=== PATIENT | male | born 1930 | race African-American/Black ===

== ENCOUNTER 2018-01-12 17:00 | Inpatient (IN) | payer MEDICARE, MEDICAID ==
[~2018-01-12] VITALS: Ht 172.7 cm; Wt 72.1 kg
[2018-01-12 17:09] VITALS: BP 93/59
[2018-01-12] MEDS ORDERED: NS 1000ml 2,200 ML IVLG ONE (17:15)
[2018-01-12] MEDS ORDERED: EPOGEN4000 UNIT/ SUBQ (17:19)
[2018-01-12] MEDS ORDERED: ATORVASTATIN CA20 MG GT (17:19)
[2018-01-12] MEDS ORDERED: CARDIZEM30 M1 PO (17:19)
[2018-01-12] MEDS ORDERED: B COMPLEX1 EACH GT (17:19)
[2018-01-12] MEDS ORDERED: DIGOXIN125 MCG GT ×2 (17:19→18:18)
[2018-01-12] MEDS ORDERED: ALBUTEROL2.5 MG/3 M INH (17:19)
[2018-01-12] MEDS ORDERED: METOCLOPRAMIDE H5 M1 ORAL (17:19)
[2018-01-12] MEDS ORDERED: TAMSULOSIN HCL0.4 MG GT (17:19)
[2018-01-12] MEDS ORDERED: AMIODARONE HCL400 M1 HE (17:19)
[2018-01-12] MEDS ORDERED: SENSIPAR30 MG GT (17:19)
[2018-01-12] MEDS ORDERED: CLOPIDOGREL75 MG ORAL (17:19)
--- NOTE | 2018-01-12 17:20 | Emergency Room Report ---
History of Present Illness General Chief Complaint: General Complaint Source: Patient Present Illness HPI 87yo M p/w hemoptysis from a SNF, found to have a low Hgb of 7.7. No h/o GI bleeding per SNF paperwork, patient does admit to cough but denies any pain complaints, any GI bleed symptoms Allergies: Coded Allergies: LORAZEPAM (Verified Allergy, Unknown, 01/12/18) Patient History Limited by: language barrier Past Medical History: see triage record Reviewed Nursing Documentation: PMH: Agreed; PSxH: Agreed Review of Systems All Other Systems: negative except mentioned in HPI Physical Exam Vital Signs Date Time Temp Pulse Resp B/P (MAP) Pulse Ox O2 Delivery O2 Flow Rate FiO2 01/12/18 16:54 97.5 85 20 92/49 95 Room Air 97.5 Sp02 EP Interpretation: reviewed, normal General Appearance: no apparent distress, alert, non-toxic Head: normocephalic Eyes: bilateral eye normal inspection, bilateral eye PERRL, bilateral eye EOMI ENT: normal ENT inspection, hearing grossly normal, normal pharynx, no angioedema, normal voice, moist mucus membranes Neck: normal inspection, full range of motion, supple, supple/symm/no masses Respiratory: chest non-tender, lungs clear, normal breath sounds, chest symmetrical, palpation of chest normal Cardiovascular #1: normal peripheral pulses, regular rate, rhythm Cardiovascular #2: 2+ radial (R), 2+ radial (L) Gastrointestinal: normal inspection, non tender, soft, no mass, no guarding, no rebound, other - PEG tube site c/d/i Rectal: deferred Genitourinary: normal inspection, no CVA tenderness Musculoskeletal: back normal, gait/station normal, normal range of motion, non- tender, no calf tenderness Neurologic: alert, responsive, project control manager III-XII nml as tested, motor strength/tone normal, sensory intact, speech normal, oriented - to person and situation Psychiatric: judgement/insight normal, mood/affect normal, no suicidal/ homicidal ideation Skin: normal color, no rash, warm/dry, normal turgor Lymphatic: no adenopathy Medical Decision Making Diagnostic Impression: Primary Impression: Anemia Additional Impression: Lung cancer ER Course I spoke with Dr. Cadena, patient has known Lung Ca, that explains the hemoptysis, he does not think patient needs much further care other than getting HD tomorrow, and if transfusion needed then await HD first to prevent fluid overload. Patient is calm and comfortable, will admit to tele. Patient with no chest pain, troponin elevated but no asa given as cecille is a renal failure patient and do not have high suspicion for ACS plus he is coughing up blood. EKG Diagnostic Results EKG Time: 17:21 EP Interpretation: No st-t depressions, LBBB Rate: normal Rhythm: NSR ST Segments: no acute changes ASA given to the pt in ED: No Rhythm Strip Diag. Results Rhythm Strip Time: 17:51 EP Interpretation: yes Rate: 84 Rhythm: NSR, no PVC's, no ectopy Chest X-Ray Diagnostic Results Chest X-Ray Diagnostic Results : Chest X-Ray Ordered: Yes # of Views/Limited/Complete: 1 View Indication: Other EP Interpretation: Yes Interpretation: no consolidation, no effusion, no pneumothorax, no acute cardiopulmonary disease Impression: No acute disease Electronically Signed by: Viviana Mc MD Last Vital Signs Date Time Temp Pulse Resp B/P (MAP) Pulse Ox O2 Delivery O2 Flow Rate FiO2 01/12/18 17:09 97.4 79 20 93/59 95 Room Air 97.4 Disposition: ADMITTED INPATIENT Condition: Stable Signed Out To: VIVIANA Willams M.D Jan 12, 2018 17:20
[2018-01-12 18:08] LABS: HEMATOCRIT 22.9 % (42.0-52.0); HEMOGLOBIN 7.8 G/DL (14.2-18.0); MEAN CORPUSCULAR VOLUME 90 FL (80-99); PLATELET COUNT 201 K/UL (150-450); RED BLOOD COUNT 2.54 M/UL (4.70-6.10); RED CELL DISTRIBUTION WIDTH 16.1 % (11.6-14.8); WHITE BLOOD COUNT 11.3 K/UL (4.8-10.8)
[2018-01-12 18:11] VITALS: BP 101/42
--- NOTE | 2018-01-12 18:11 | Diagnostic Imaging Report ---
EXAM: XR Chest, 1 View CLINICAL HISTORY: COUGH TECHNIQUE: Frontal view of the chest. COMPARISON: No relevant prior studies available. FINDINGS: Lungs: Pulmonary nodules which likely represent granulomas, but which are indeterminate. Recommend correlation with prior studies to evaluate stability over time. If none available, recommend unenhanced CT chest to further characterize. Pleural space: Left small pleural effusion with passive atelectasis. No pneumothorax. Heart: Unremarkable. No cardiomegaly. Mediastinum: Unremarkable. Bones/joints: Unremarkable. Other findings: Otherwise no acute disease. ASVD. Partly seen bilateral cervical posterior stabilization hardware. IMPRESSION: 1. Left small pleural effusion with passive atelectasis. 2. Otherwise no acute disease. 3. Pulmonary nodules which likely represent granulomas, but which are indeterminate. Recommend correlation with prior studies to evaluate stability over time. If none available, recommend unenhanced CT chest to further characterize.
[2018-01-12] MEDS ORDERED: B COMPLEX-FOLI1 EACH GT (18:14)
[2018-01-12 18:18] LABS: ANION GAP 13 mmol/L (5-15); BLOOD UREA NITROGEN 120 mg/dL (7-18); CALCIUM 8.5 MG/DL (8.5-10.1); CARBON DIOXIDE 27 MMOL/L (21-32); CHLORIDE 95 MMOL/L (98-107); CREATININE 8.9 MG/DL (0.55-1.30); SODIUM 135 MMOL/L (136-145)
[2018-01-12] MEDS ORDERED: AMIODARONE HCL400 M1 ORAL (18:19)
[2018-01-12] MEDS ORDERED: AMIODARONE HCL400 M1 GT (18:20)
[2018-01-12 18:29] LABS: APPEARANCE,URINE SLIGHTLY CLOUDY; BILIRUBIN, URINE 1+ (NEGATIVE); GLUCOSE, URINE (UA) NEGATIVE (NEGATIVE); KETONES,URINE NEGATIVE (NEGATIVE); LEUKOCYTE ESTERASE ,URINE 3+ (NEGATIVE); NITRITE,URINE NEGATIVE (NEGATIVE); PH,URINE 7 (4.5-8.0); PROTEIN,URINE 3+ (NEGATIVE); UROBILINOGEN,URINE NORMAL MG/DL (0.0-1.0)
[2018-01-12 18:32] LABS: ALANINE AMINOTRANSFERASE 27 U/L (12-78); ALBUMIN 3.1 G/DL (3.4-5.0); ALKALINE PHOSPHATASE 169 U/L (46-116); ASPARTATE AMINO TRANSFERASE 43 U/L (15-37); BILIRUBIN,TOTAL 0.4 MG/DL (0.2-1.0); CKMB 5.2 NG/ML (0.0-3.6); CREATINE KINASE 270 U/L (26-308)
[2018-01-12 18:37] LABS: COLOR,URINE PALE YELLOW
[2018-01-12 19:18] VITALS: BP 105/49
[2018-01-12 20:00] VITALS: BP 107/56
[2018-01-12] MEDS ORDERED: Albuterol ud Inhalation HHN PRN (22:45)
[2018-01-12] MEDS ORDERED: CARDIZEM60 MG GT (23:13)
[2018-01-13] VITALS (7 sets, daily range): BP systolic 99–138; BP diastolic 42–67
[2018-01-13] MEDS ORDERED: Albuterol ud Inhalation HHN SCH (02:00)
[2018-01-13] MEDS: Albuterol ud Inhalation HHN SCH ×3 (04:08→11:01)
[2018-01-13] MEDS: dilTIAZem HCl 60mg tab GT SCH ×3 (06:00→22:42)
[2018-01-13] MEDS ORDERED: Vitamin B Complex Tab ORAL SCH (09:00)
[2018-01-13] MEDS ORDERED: Amiodarone 200mg tab GT SCH (09:00)
[2018-01-13] MEDS ORDERED: Sensipar 30mg Tab GT SCH (09:00)
[2018-01-13] MEDS ORDERED: Albuterol/Ipratropium 3ml neb HHN PRN (14:45)
--- NOTE | 2018-01-13 15:30 | History and Physical Report ---
DATE OF ADMISSION: 01/12/2018 CHIEF COMPLAINT: Hemoptysis. HISTORY OF PRESENT ILLNESS: This is an 87-year-old male, who was just discharged a few days ago from [facility] after a prolonged admission for multiple medical problems. Essentially, the patient was therefore extensive lung cancer and paroxysmal atrial fibrillation. The patient was debilitated. Eventually, the patient was sent to [facility]. The patient's daughter was alarmed because of his continued hemoptysis and decided to send him outside again to the hospital. She thought his care home is not adequate to take care of him. PAST MEDICAL HISTORY: 1. Extensive lung cancer a biopsy-proven, most of the workup was done at [facility]. 2. End-stage renal failure, on dialysis. 3. Chronic atrial fibrillation. 4. Status post gastrostomy. 5. Organic brain syndrome. 6. Anemia of chronic renal failure. 7. History of congestive heart failure. 8. Cardiomyopathy. 9. Ischemic heart disease. 10. Benign prostatic hypertrophy. MEDICATIONS: Epogen in the hospital and at the dialysis center the patient was getting darbepoetin, metoclopramide, diltiazem, amiodarone, digoxin, Plavix, tamsulosin, cinacalcet, atorvastatin, albuterol/ipratropium inhalation, vitamin B complex, tube feeding. ALLERGIES: Allergies to lorazepam. FAMILY HISTORY: Unable to obtain. The patient is confused. SOCIAL HISTORY: Unable to obtain. The patient is confused. REVIEW OF SYSTEMS: Unable to obtain. The patient is confused. PHYSICAL EXAMINATION: GENERAL: This is an elderly cachectic, chronically ill-appearing male, who is in no acute distress. VITAL SIGNS: Blood pressure 113/54, pulse 84 and irregular, respirations 16, temperature is 97.6 axillary. HEENT: The head is normocephalic and atraumatic. Pupils are equal, round, and reactive to light and accommodation consensually. NECK: Supple. Trachea midline. There was no lymphadenopathy or thyromegaly. LUNGS: Bilateral coarse rhonchi. HEART: Irregularly irregular. ABDOMEN: Soft and nontender. Bowel sounds were active. He has a gastrostomy tube. EXTREMITIES: Notable for advanced muscle wasting. He has left upper arm AV fistula with thrill and bruit. NEUROLOGIC: He is alert, but confused. There were no gross focal findings. LABORATORY AND ANCILLARY DATA: CBC shows white count of 11,300, hematocrit 22.9, and platelet count is 201,000. Serum chemistry yesterday sodium 135, potassium 3, BUN 120, and creatinine 8.9. Pro-B natriuretic peptide 24,619. Troponin level 0.172. Lactic acid 0.8. Chest x-ray, showed left small pleural effusions with passive atelectasis. Otherwise, no acute disease. Pulmonary nodules, which likely represent granulomas, but which are indeterminate. ASSESSMENT: 1. Lung cancer. 2. Extensive hemoptysis secondary to the above. 3. Extensive lung cancer a biopsy-proven, most of the workup was done at [facility]. 4. End-stage renal failure, on dialysis. 5. Chronic atrial fibrillation. 6. Status post gastrostomy. 7. Organic brain syndrome. 8. Anemia of chronic renal failure. 9. History of congestive heart failure. 10. Cardiomyopathy. 11. Ischemic heart disease. 12. Benign prostatic hypertrophy. PLAN: 1. Resume medications from care home except Plavix, which currently exacerbate the patient's major symptom, which is hemoptysis, which is a rate limiting factor for his quality of life. 2. Hemodialysis. The patient has had high BUN and uremia also exacerbated the patient's hemoptysis and due to decline in his quality of life. The patient may need more frequent hemodialysis to decrease his BUN and decrease the episodes of his hemoptysis, which are both frightening and decreased the patient's quality of life. 3. We will therefore try to improve the patient's quality of life and try to return the patient to a better environment in the intermediate facility. Freddy Sandoval M.D. DR: ASTRID JOB#: [id number] CC: ESTUARDO
--- NOTE | 2018-01-13 16:05 | Consultation ---
Consult Note Assessment/Plan DICT # [id number] Wilmar Prater MD Jan 13, 2018 16:05
[2018-01-13] MEDS ORDERED: Piperacillin/Tazobactam 2.25 GM in NS 55 ML IV SCH (17:00)
[2018-01-13] MEDS ORDERED: Sterile Water Irrig 1000ml IRRIG ONE (17:30)
--- NOTE | 2018-01-13 17:45 | Consultation ---
DATE OF CONSULTATION: 01/13/2018 PULMONARY CONSULTATION Please note this consultation is in coverage of Dr. Ron Vaughn. CONSULTING PHYSICIAN: Wilmar Prater M.D. REFERRING PHYSICIAN: Freddy Sandoval M.D. REASON FOR CONSULTATION: Hemoptysis. HISTORY OF PRESENT ILLNESS: The patient is an 87-year-old male former smoker with history of COPD, stage IV lung cancer, schizophrenia, G-tube dependent, atrial fibrillation, PAD status post angioplasty of the foot in the past with toe ischemia, dysphagia status post G-tube, anxiety disorder, SVT, recently hospitalized at the [facility] now presenting back from a nursing facility with worsening respiratory status and hemoptysis. Upon arrival to the hospital, he has been afebrile. His vitals are stable, saturating well on two liters. He is currently getting dialyzed. The patient himself is unable to provide much of a history but per review of records he had an extended stay at [facility] and eventually sent to [facility]. Given continued hemoptysis, family decided to send him back to the hospital. The patient was seen by Oncology at the previous hospital and the plan was to the optimize his functional status before deciding on further treatment of his cancer. PAST MEDICAL HISTORY: 1. Stage IV adenocarcinoma of the lung, biopsy proven, metastatic diagnosis. 2. Hemoptysis secondary to above. 3. End-stage renal failure on dialysis. 4. Dysphagia, status post G-tube. 5. Chronic atrial fibrillation and SVT. 6. Organic brain syndrome. 7. Schizophrenia. 8. Congestive heart failure. 9. Cardiomyopathy. 10. Ischemic heart disease. 11. BPH. 12. Severe peripheral vascular disease. 13. Angioplasty of lower extremities. 14. Ischemic toes. 15. Anemia. ALLERGIES: Lorazepam. MEDICATIONS: Prior to admission medications reviewed. Current medications reviewed. SOCIAL HISTORY: The patient is a extensive former smoker. Denies tobacco or drug use. He is a [facility] resident. FAMILY HISTORY: Noncontributory. REVIEW OF SYSTEMS: Negative other than history of present illness. PHYSICAL EXAMINATION: VITAL SIGNS: Temperature 97.2, pulse 79, blood pressure 112/56, respiratory rate 20, and saturating 96% on two liters. GENERAL: He is an elderly male, dysarthric in no respiratory distress but he is coughing up blood. HEENT: Normocephalic and atraumatic. Oropharynx is clear with moist mucous membranes. CHEST: Coarse bilateral breath sounds. HEART: Regular rate and rhythm. ABDOMEN: Soft, nontender, and nondistended. EXTREMITIES: No cyanosis, clubbing. There is ischemic toe noted. ANCILLARY DATA: White count 11.3, hemoglobin 7.8, and platelet count 201. Sodium 135, potassium 3, chloride 95, bicarb 27, BUN 120, creatinine 8.1, glucose 103, calcium 8.5. Total bilirubin 0.4, AST 43, ALT 27, alkaline phosphatase 169, CK 270. Troponin 0.172. BNP 62999. Albumin 3.1, globulin 3.2. Protein , occult blood 5+, total bilirubin 1+, LE 3+. Urine culture no growth so far. Chest x-ray, reviewed by myself shows scattered bilateral nodules, small left pleural effusion. ASSESSMENT: The patient is an 87-year-old male, extensive former smoker with a history of chronic obstructive pulmonary disease, stage IV lung adenocarcinoma, failure to thrive, cachexia, dysphagia status post G-tube, congestive heart failure, chronic atrial fibrillation, schizophrenia, organic brain syndrome, and multiple other medical problems presenting for management of continued hemoptysis. This apparently has been an ongoing issue since his last hospitalization and needs to be looked at in terms of his overall goals of care. Limited notes from the [facility] are available for review. I had reviewed these but we will speak at more in detail with the team that took care of him over there including the oncologist. It seems as if the plan was to optimize his functional status before considering palliative therapy for his cancer. At this point, I will go ahead and get a CT of the chest to get a better idea of the patient's parenchymal disease, anticipating potential sources if indeed an embolization is required at some point. We will also get coags to assess for underlying coagulopathy. His Plavix has been held and he is currently undergoing dialysis. He had a urinary tract infection as well as a possible tracheobronchitis. We will start him on broad-spectrum antibiotics. PROBLEM LIST: 1. Hemoptysis likely secondary to lung cancer with possible superimposed tracheobronchitis/early pneumonia. 2. Stage IV lung adenocarcinoma diagnosed at [facility] per report treatment naive. 3. Chronic obstructive pulmonary disease. 4. Recent pneumonia. 5. Urinary tract infection. 6. Congestive heart failure with ischemic cardiomyopathy. 7. Atrial fibrillation and supraventricular tachycardia. 8. Hypertension. 9. Hyperlipidemia. 10. Benign prostatic hypertrophy. 11. Ischemic toes and multilevel peripheral arterial disease status post angioplasty and atherectomy. 12. Dysphagia, status post gastrostomy tube. 13. Acute on chronic anemia. 14. End-stage renal disease, on dialysis. TREATMENT PLAN: 1. Monitor for further hemoptysis. 2. Stat CT of the chest. 3. If patient decompensates, we need to transfer him to the incentive care unit and intubate him. If a lesion is noted on CT, we would do a mainstem intubation on the contralateral side. 4. If the patient continues to bleed, he may need transfer to a higher level of care for possible embolization. 5. Check coags. 6. Hold anti-platelet therapy. 7. We will empirically start Zosyn and vancomycin for treatment of his urinary tract infection and healthcare-associated pneumonia. 8. Dialysis per Dr. Sandoval. 9. Optimize pulmonary hygiene/mobilize as tolerated. 10. Around the clock and p.r.n. DuoNebs. 11. Consider hematology/oncology evaluation. 12. DVT prophylaxis with SCDs. 13. Per review of records and current presentation, prognosis is poor. 14. The patient is a Full Code though we will need to continue to address goals of care. Dr. Sandoval, thank you for allowing us to assist in the care of this patient. If we may be of any assistance in the future, please not hesitate to ask. Wilmar Prater M.D. DR: Felipa JOB#: [id number] CC:
--- NOTE | 2018-01-13 18:44 | Diagnostic Imaging Report ---
EXAM: CT Chest Without Intravenous Contrast CLINICAL HISTORY: COUGH TECHNIQUE: Axial computed tomography images of the chest without intravenous contrast. CTDI is 25.99 mGy and DLP is 963 mGy-cm. One or more of the following dose reduction techniques were used: automated exposure control, adjustment of the mA and/or kV according to patient size, use of iterative reconstruction technique. COMPARISON: Chest radiograph 01/12/18 at 1736 hrs. FINDINGS: Lungs: Numerous bilateral pulmonary nodules, most of which are relatively uniform in size measuring up to approximately 1.2 cm. Left lower lobe posterior 3.4 cm mass with broad contact of the aorta and posterior left hilar structures. No pneumonia seen. No pleural effusion. Pleural space: See above. Heart: Unremarkable. No cardiomegaly. No significant pericardial effusion. Bones/joints: Mild age-related multilevel degenerative spine findings. Soft tissues: Right soft tissue mass in the anterior soft tissues of the shoulder region measuring 4.7 cm, hypodense central component suggest necrosis. Vasculature: Unremarkable. No thoracic aortic aneurysm. Lymph nodes: Unremarkable. No enlarged lymph nodes. Adrenals: Nodular the thickened adrenal glands, indeterminate. Correlate with prior imaging. If not available, these can be further assessed MRI. Kidneys and ureters: Multiple bilateral indeterminate renal cystic masses, correlate for stability over time with prior imaging if available. If stability over time cannot be assured, recommend MRI kidneys. IMPRESSION: 1. Findings strongly suggesting metastatic disease in the lungs, dominant left lower lobe lung mass with numerous additional pulmonary nodules. 2. Recommend further evaluation with appropriate screening studies, and consider PET/CT versus percutaneous lung mass CT guided core biopsy. 3. Likely neoplastic anterior right shoulder mass, considerations include metastases versus soft tissue sarcoma. This is amenable to image guided percutaneous core needle biopsy.
[2018-01-13] MEDS ORDERED: Albuterol/Ipratropium 3ml neb HHN SCH (19:00)
--- NOTE | 2018-01-13 19:31 | Cardiac Electrophysiology PN ---
Subjective Subjective [id number] Objective Last 24 Hour Vital Signs Date Time Temp Pulse Resp B/P (MAP) Pulse Ox O2 Delivery O2 Flow Rate FiO2 01/13/18 16:30 Nasal Cannula 2.0 01/13/18 16:00 97.3 85 20 102/67 99 Nasal Cannula 2.0 97.3 01/13/18 16:00 88 01/13/18 13:05 79 112/56 01/13/18 13:00 Nasal Cannula 2.0 01/13/18 12:00 85 01/13/18 12:00 97.2 79 20 112/56 96 Nasal Cannula 2.0 97.2 01/13/18 11:12 84 18 93 Nasal Cannula 2.0 28 01/13/18 11:01 77 18 94 Room Air 21 01/13/18 08:00 97.6 86 20 113/54 95 Nasal Cannula 2.0 97.6 01/13/18 08:00 85 01/13/18 07:13 84 18 94 Nasal Cannula 2.0 28 01/13/18 07:03 82 20 Room Air 01/13/18 07:03 91 Room Air 01/13/18 07:03 82 16 91 Room Air 21 01/13/18 07:03 Room Air 21 01/13/18 06:00 83 110/54 01/13/18 04:00 97.0 78 23 110/54 100 Nasal Cannula 2.0 97.0 01/13/18 04:00 85 20 94 Nasal Cannula 2.0 28 01/13/18 04:00 84 20 92 Nasal Cannula 2.0 28 01/13/18 04:00 83 01/13/18 00:00 97.3 82 21 107/56 100 Nasal Cannula 2.0 97.3 01/13/18 00:00 82 01/12/18 23:10 Nasal Cannula 2.0 28 01/12/18 23:10 92 Nasal Cannula 2.0 28 01/12/18 22:56 82 20 Room Air 01/12/18 22:54 82 20 92 Room Air 21 01/12/18 22:54 86 20 95 Room Air 01/12/18 20:00 96.8 85 23 107/56 90 Room Air 96.8 01/12/18 20:00 83 Intake and Output 01/12/18 01/13/18 19:00 07:00 Intake Total 1000 ml Output Total 30 ml Balance -30 ml 1000 ml Intake IV Total 1000 ml Output Urine Total 30 ml # Voids 1 Laboratory Tests Test 01/13/18 14:41 01/13/18 17:35 Arterial Blood pH 7.415 (7.350-7.450) Arterial Blood Partial Pressure CO2 42.1 mmHg (35.0-45.0) Arterial Blood Partial Pressure O2 128.1 mmHg (75.0-100.0) H Arterial Blood HCO3 26.4 mmol/L (22.0-26.0) H Arterial Blood Oxygen Saturation 98.2 % (92.0-98.0) H Arterial Blood Base Excess 1.7 Vimal Test Positive Prothrombin Time 10.8 SEC (9.30-11.50) Prothromb Time International Ratio 1.0 (0.9-1.1) Microbiology Date/Time Source Procedure Growth Status 01/12/18 18:00 Urine,Clean Catch Urine Culture - Preliminary NO GROWTH Resulted Keshav Spear MD Jan 13, 2018 19:31
[2018-01-13] MEDS ORDERED: Digoxin 0.125mg tab GT SCH (20:00)
--- NOTE | 2018-01-13 20:30 | Consultation ---
DATE OF CONSULTATION: 01/13/2018 Cardiology consultation CONSULTING PHYSICIAN: Keshav Spear M.D. REFERRING PHYSICIAN: Freddy Sandoval M.D. REASON FOR CONSULTATION: Management of hypertension, atrial flutter, congestive heart failure. HISTORY OF PRESENT ILLNESS: The patient is an 87-year-old gentleman with history of COPD and stage IV lung cancer, history of G-tube as well as peripheral vascular disease status post angioplasty with history of atrial flutter status post ablation by me at [facility] who was just recently discharged just last week. The patient brought back from senior living for worsening of respiratory status and persistence of hemoptysis. The patient was admitted and Cardiology consultation was obtained for further evaluation and management. At the time of my evaluation, the patient is coughing of blood and at times short of breath. REVIEW OF SYSTEMS: Review of Systems was negative other than what is mentioned in the history of present illness. PAST MEDICAL HISTORY: Includes: 1. Hypertension. 2. History of atrial flutter status post ablation. 3. History of congestive heart failure. 4. Peripheral vascular disease status post angioplasty of lower extremities. 5. Stage IV adenocarcinoma of the lungs, metastatic biopsy-proven. 6. Dysphagia, status post PEG placement. 7. Schizophrenia. 8. Anemia. ALLERGIES: The patient is allergic to lorazepam MEDICATION: Per reconciliation. SOCIAL HISTORY: Extensive smoker. intermediate resident. PHYSICAL EXAMINATION: VITAL SIGNS: Blood pressure is 102/67, pulse 85, respirations 18, and temperature 97.3. HEAD AND SHOWS: No JVD. LUNGS: Coarse rhonchi. CARDIOVASCULAR: Regular S1 and S2 with no gallop or murmur. ABDOMEN: Soft, status post G-tube. EXTREMITIES: A 1+ pitting edema. LABORATORY AND DIAGNOSTIC DATA: White count 11.2, hemoglobin 7.8, hematocrit 22.9, platelet count 201. Sodium 135, potassium 3.0, BUN 120, creatinine 8.9. Troponin is 0.172. BNP 90662. ASSESSMENT AND PLAN: 1. Troponin elevation. This is likely due to the patient's renal failure. He does not have any chest pain. EKG shows left bundle-branch block. 2. [place] [address]. The patient will be on hemodialysis. 3. Hypokalemia, which we will be replacing. 4. Severe peripheral vascular disease. Status post intervention. 5. End-stage renal disease, on hemodialysis. 6. Metastatic stage IV lung cancer. Thank you very much, Dr. Sandoval, for allowing me to participate in the care of this patient. Please do not hesitate to contact me for any questions regarding my evaluation. Sincerely, Keshav Spear M.D. DR: Keya JOB#: [id number] CC:
[2018-01-13] MEDS ORDERED: Tamsulosin 0.4mg cap ORAL SCH (21:00)
[2018-01-13] MEDS ORDERED: Epogen (for ESRD on dialysis) SUBQ SCH (21:00)
[2018-01-13] MEDS ORDERED: Heparin 1000 units/ml 1ml Vial INJ SCH (21:15)
[2018-01-13] MEDS ORDERED: Heparin Sod 1000 units/ml 10ml IV SCH (21:15)
[2018-01-14] VITALS (24 sets, daily range): BP systolic 97–184; BP diastolic 22–74
[2018-01-14 00:04] LABS: HEMATOCRIT 19.9 % (42.0-52.0); MEAN CORPUSCULAR VOLUME 90 FL (80-99); PLATELET COUNT 198 K/UL (150-450); RED BLOOD COUNT 2.21 M/UL (4.70-6.10); RED CELL DISTRIBUTION WIDTH 16.1 % (11.6-14.8); WHITE BLOOD COUNT 11.9 K/UL (4.8-10.8)
[2018-01-14 00:15] LABS: HEMOGLOBIN 6.7 G/DL (14.2-18.0)
[2018-01-14] MEDS: Piperacillin/Tazobactam 2.25 GM in NS 55 ML IV SCH ×3 (01:13→18:20)
[2018-01-14] MEDS: Albuterol/Ipratropium 3ml neb HHN SCH ×4 (01:21→20:27)
--- NOTE | 2018-01-14 02:15 | Consultation ---
DATE OF CONSULTATION: 01/13/2018 NOTE: POOR AUDIO HEMATOLOGY/ONCOLOGY CONSULTATION CONSULTING PHYSICIAN: Jm Gooden M.D. REQUESTING PHYSICIAN: Freddy Sandoval M.D. IDENTIFYING DATA: The patient is a pleasant 87-year-old male who presents with past medical history stage IV lung cancer, schizophrenia, G-tube dependent, SVT, history of dysphagia, status post G-tube, anxiety disorder, recently [facility] [place], presents from [facility] with worsening respiratory failure and hemoptysis, has been afebrile, stable, saturating well on two liters, getting dialyzed, currently unable to provide history. . He has a history of hemoptysis, has been seen by Oncology in the past. The patient has been anemic before, has been right upper extremity DVT and temporal lobe mass, which imaging. Hematology Service was consulted at this time as the patient requires Epogen. PAST MEDICAL HISTORY: 1. carcinoma, biopsy-proven, metastatic. 2. Hemoptysis. 3. End-stage renal disease, on dialysis. 4. Dysphagia, status post G-tube. 5. Chronic atrial fibrillation and SVT. 6. Organic brain syndrome. MEDICATIONS: Reviewed. ALLERGIES: Lorazepam. SOCIAL HISTORY: Extensive smoker. No alcohol or illicit drug use. FAMILY HISTORY: Noncontributory. REVIEW OF SYSTEMS: . PHYSICAL EXAMINATION: VITAL SIGNS: Reviewed. GENERAL: No distress. LUNGS: Decreased breath sounds bilaterally. Some crackles at the base noted as well. CARDIOVASCULAR: . ABDOMEN: Soft, nontender, and nondistended. EXTREMITIES: No cyanosis or edema. LABORATORY DATA: WBC 11.3, hemoglobin 10.8, hematocrit , platelet count 201,000. Total bilirubin 0.4. BNP 24,000. ASSESSMENT AND RECOMMENDATIONS: 1. Stage IV adenocarcinoma, seen by Pulmonary and Cardiology for further monitoring as well as further recommendations. CT scan, which has to be completed. The patient with hemoptysis noted as well. 2. Reviewed [facility] records. The patient again most recently seen on 01/11/2018, has not received any chemotherapy. Prognosis remains somewhat poor. We will continue to closely monitor. Consider outpatient treatment as needed. The patient also requires a PET scan. The patient will need to have staining if he qualifies for immunotherapy. Pathology again reviewed from 12/28/2017. No major changes noted in pathology report. The patient does not have immunophenotypic staining negative. He will not benefit from immunotherapy. 3. Anemia due to underlying chronic disease. Continue to closely monitor. Anemia workup has been completed. Continue the patient on Procrit 4000 units subcutaneous. 4. Dysphagia, status post PEG. 5. Atrial flutter, status post ablation. 6. Congestive heart failure. 7. Peripheral vascular disease, status post angioplasty. 8. I appreciate the consultation. Jm Gooden M.D. DR: Jose JOB#: [id number] CC:
[2018-01-14] MEDS ORDERED: Albuterol/Ipratropium 3ml neb HHN PRN (02:45)
[2018-01-14] MEDS: dilTIAZem HCl 60mg tab GT SCH ×3 (06:00→22:18)
[2018-01-14] MEDS ORDERED: Vitamin B Complex Tab ORAL SCH (09:00)
[2018-01-14] MEDS: Sensipar 30mg Tab GT SCH (09:21)
[2018-01-14] MEDS: Amiodarone 200mg tab GT SCH (09:22)
--- NOTE | 2018-01-14 09:34 | Nephrology Progress Note ---
Assessment/Plan Plan gross hemoptysis continues. [facility] to [facility] after DC'ing Plavix + providing frequent HD to reduce uremic component. Transfuse PRN. ESRD - HD in am. Subjective Subjective Confused. In ICU. Gross Hemoptysis. Objective Objective Last 24 Hour Vital Signs Date Time Temp Pulse Resp B/P (MAP) Pulse Ox O2 Delivery O2 Flow Rate FiO2 01/14/18 08:00 98.7 80 18 152/67 100 Nasal Cannula 2.0 98.7 01/14/18 07:12 89 20 97 Nasal Cannula 2.0 28 01/14/18 07:02 Nasal Cannula 2.0 28 01/14/18 07:02 100 Nasal Cannula 2.0 28 01/14/18 07:02 81 16 100 Nasal Cannula 2.0 28 01/14/18 07:00 83 18 112/45 100 Nasal Cannula 2.0 01/14/18 06:00 83 118/68 01/14/18 06:00 82 20 116/68 96 Nasal Cannula 2.0 01/14/18 05:00 82 18 113/40 100 Nasal Cannula 2.0 01/14/18 04:00 99.1 82 20 99/48 98 Nasal Cannula 2.0 99.1 01/14/18 03:00 83 20 97/39 100 Nasal Cannula 2.0 01/14/18 02:58 84 01/14/18 02:00 87 18 105/39 100 Nasal Cannula 2.0 01/14/18 01:23 90 20 99 Nasal Cannula 2.0 28 01/14/18 01:22 85 16 98 Nasal Cannula 2.0 28 01/14/18 01:00 78 25 100/50 100 Nasal Cannula 2.0 01/14/18 00:00 85 01/14/18 00:00 80 26 105/72 100 Nasal Cannula 2.0 01/14/18 00:00 99.1 99.1 01/13/18 23:15 98.0 85 26 99/50 100 Nasal Cannula 2.0 98.0 01/13/18 22:42 91 133/55 01/13/18 20:58 89 01/13/18 20:00 88 20 99 Nasal Cannula 2.0 28 01/13/18 20:00 86 01/13/18 20:00 97.9 89 20 138/42 20 Nasal Cannula 2.0 97.9 01/13/18 19:59 84 16 96 Nasal Cannula 2.0 28 01/13/18 19:58 Nasal Cannula 2.0 28 01/13/18 19:57 95 Nasal Cannula 2.0 28 01/13/18 16:30 Nasal Cannula 2.0 01/13/18 16:00 97.3 85 20 102/67 99 Nasal Cannula 2.0 97.3 01/13/18 16:00 88 01/13/18 13:05 79 112/56 01/13/18 13:00 Nasal Cannula 2.0 01/13/18 12:00 85 01/13/18 12:00 97.2 79 20 112/56 96 Nasal Cannula 2.0 97.2 01/13/18 11:12 84 18 93 Nasal Cannula 2.0 28 01/13/18 11:01 77 18 94 Room Air 21 Intake and Output 01/13/18 01/14/18 19:00 07:00 Intake Total 155 ml Output Total 0 ml Balance 155 ml Intake IV Total 55 ml Tube Feeding 0 ml Blood Product 100 ml Output Urine Total 0 ml # Voids 2 Laboratory Tests 01/13/18 14:41: Arterial Blood pH 7.415, Arterial Blood Partial Pressure CO2 42.1, Arterial Blood Partial Pressure O2 128.1H, Arterial Blood HCO3 26.4H, Arterial Blood Oxygen Saturation 98.2H, Arterial Blood Base Excess 1.7, Vimal Test Positive 01/13/18 17:35: Prothrombin Time 10.8, Prothromb Time International Ratio 1.0 01/13/18 22:31: Arterial Blood pH 7.424, Arterial Blood Partial Pressure CO2 42.9, Arterial Blood Partial Pressure O2 121.4H, Arterial Blood HCO3 27.5H, Arterial Blood Oxygen Saturation 97.8, Arterial Blood Base Excess 2.8, Vimal Test Positive 01/13/18 23:50: White Blood Count 11.9H, Red Blood Count 2.21L, Hemoglobin 6.7*L, Hematocrit 19.9L, Mean Corpuscular Volume 90, Mean Corpuscular Hemoglobin 30.2, Mean Corpuscular Hemoglobin Concent 33.6, Red Cell Distribution Width 16.1H, Platelet Count 198, Mean Platelet Volume 6.4L, Neutrophils (%) (Auto) , Lymphocytes (%) (Auto) , Monocytes (%) (Auto) , Eosinophils (%) (Auto) , Basophils (%) (Auto) , Neutrophils % (Manual) [Pending], Lymphocytes % (Manual) [Pending], Platelet Estimate [Pending], Platelet Morphology [Pending] Height (Feet): 5 Height (Inches): 8.00 Weight (Pounds): 150 Objective IRR/Irr/ Lungs B jaycob Abd SNT. BS ++. PEG OK. E No Edema. + clubbing. Freddy Sandoval MD Jan 14, 2018 09:34
[2018-01-14] MEDS ORDERED: HydrALAZINE 25mg tab ORAL PRN (11:00)
--- NOTE | 2018-01-14 11:30 | Pulmonolgy Critical Care Note ---
Critical Care - Asmt/Plan Problems: (1) Hemoptysis (2) Lung cancer (3) Anemia Assessment/Plan: ASSESSMENT: The patient is an 87-year-old male, extensive former smoker with a history of chronic obstructive pulmonary disease, stage IV lung adenocarcinoma, failure to thrive, cachexia, dysphagia status post G-tube, congestive heart failure, chronic atrial fibrillation, schizophrenia, organic brain syndrome, and multiple other medical problems presenting for management of continued hemoptysis PROBLEM LIST: 1. Hemoptysis likely secondary to lung cancer with possible superimposed tracheobronchitis/early pneumonia. 2. Stage IV lung adenocarcinoma diagnosed at [facility], treatment naive. 3. Chronic obstructive pulmonary disease. 4. Recent pneumonia. 5. Urinary tract infection. 6. Congestive heart failure with ischemic cardiomyopathy. 7. Atrial fibrillation and supraventricular tachycardia. 8. Hypertension. 9. Hyperlipidemia. 10. Benign prostatic hypertrophy. 11. Ischemic toes and multilevel peripheral arterial disease status post angioplasty and atherectomy. 12. Dysphagia, status post gastrostomy tube. 13. Acute on chronic anemia. 14. End-stage renal disease, on dialysis. Respiratory: other - Monitor for further hemoptysis, if decompensates will need R mainstem intubation and place patient on L. Plavix held, transfuse PRN. RTC and PRN HHN's. Cardiac: continue to monitor HR/BP, other - Amio, Dig, Dilt per EP Renal: check electrolytes, other - HD per renal Infectious Disease: check cultures - F/u Cx's, continue antibiotics - Vanco/ Zosyn D#2 Gastrointestinal: continue feedings/current rate - TF's as tolerated Hematologic: monitor H/H, transfuse if hgb<8.5, other - F/U Dr. Gooden recs , unlikely to be a candidate for systemic therapy Affect: other - Monitor MS Prophylaxis: Heparin, SCDs Disposition: keep in ICU Time Spent (Minutes): 70 Notes Reviewed: motor and generator assembler, cardio, renal, other - Heme-Onc Discussed with: nurses, consultants Critical Care - Objective Last 24 Hour Vital Signs Date Time Temp Pulse Resp B/P (MAP) Pulse Ox O2 Delivery O2 Flow Rate FiO2 01/14/18 10:00 84 18 184/68 100 Nasal Cannula 2.0 01/14/18 09:00 84 18 157/74 100 Nasal Cannula 2.0 01/14/18 08:00 84 7/1/18 08:00 98.7 80 18 152/67 100 Nasal Cannula 2.0 98.7 01/14/18 07:12 89 20 97 Nasal Cannula 2.0 01/14/18 07:02 Nasal Cannula 2.0 28 01/14/18 07:02 100 Nasal Cannula 2.0 28 01/14/18 07:02 81 16 100 Nasal Cannula 2.0 28 01/14/18 07:00 83 18 112/45 100 Nasal Cannula 2.0 01/14/18 06:00 83 118/68 01/14/18 06:00 82 20 116/68 96 Nasal Cannula 2.0 01/14/18 05:00 82 18 113/40 100 Nasal Cannula 2.0 01/14/18 04:00 99.1 82 20 99/48 98 Nasal Cannula 2.0 99.1 01/14/18 03:00 83 20 97/39 100 Nasal Cannula 2.0 01/14/18 02:58 84 01/14/18 02:00 87 18 105/39 100 Nasal Cannula 2.0 01/14/18 01:23 90 20 99 Nasal Cannula 2.0 01/14/18 01:22 85 16 98 Nasal Cannula 2.0 01/14/18 01:00 78 25 100/50 100 Nasal Cannula 2.0 01/14/18 00:00 85 01/14/18 00:00 80 26 105/72 100 Nasal Cannula 2.0 01/14/18 00:00 99.1 99.1 01/13/18 23:15 98.0 85 26 99/50 100 Nasal Cannula 2.0 98.0 01/13/18 22:42 91 133/55 01/13/18 20:58 89 01/13/18 20:00 88 20 99 Nasal Cannula 2.0 01/13/18 20:00 86 01/13/18 20:00 97.9 89 20 138/42 20 Nasal Cannula 2.0 97.9 01/13/18 19:59 84 16 96 Nasal Cannula 2.0 28 01/13/18 19:58 Nasal Cannula 2.0 28 01/13/18 19:57 95 Nasal Cannula 2.0 28 01/13/18 16:30 Nasal Cannula 2.0 01/13/18 16:00 97.3 85 20 102/67 99 Nasal Cannula 2.0 97.3 01/13/18 16:00 88 01/13/18 13:05 79 112/56 01/13/18 13:00 Nasal Cannula 2.0 01/13/18 12:00 85 01/13/18 12:00 97.2 79 20 112/56 96 Nasal Cannula 2.0 97.2 Status: awake Condition: grave HEENT: atraumatic, normocephalic Lungs: rhonchi Heart: HR/BP stable Abdomen: soft, non-tender, active bowel sounds, feeding tube Extremities: no C/C/E, clubbing Micro: Microbiology Date/Time Source Procedure Growth Status 01/12/18 18:05 Blood Blood Culture - Preliminary NO GROWTH AFTER 24 HOURS Resulted 01/12/18 17:50 Blood Blood Culture - Preliminary NO GROWTH AFTER 24 HOURS Resulted 01/12/18 18:00 Urine,Clean Catch Urine Culture - Final NO GROWTH AFTER 48 HOURS Complete Critical Care - Subjective ROS Limited/Unobtainable: Yes ICU Day: 2 Interval Events: Transferred to ICU O/N Continue hemoptysis but frequency decreasing Hb 6.7 getting 2U PRBC Getting HD today NPO Condition: critical IV Access: peripheral EKG Rhythm: Sinus Rhythm FI02: 28 Sputum Amount: Small Tube Feeding Amount: 0 Residuals: TF's held, gets 20 hours daily I&O: Intake and Output 01/13/18 01/14/18 19:00 07:00 Intake Total 155 ml Output Total 0 ml Balance 155 ml Intake IV Total 55 ml Tube Feeding 0 ml Blood Product 100 ml Output Urine Total 0 ml # Voids 2 Subjective: + SOB + wheezing no F/C + hemoptysis CXR: CT CHEST WITH DOMINANT LLL mass and scattered b nodules, R shoulder mass Labs: Laboratory Tests Test 01/13/18 14:41 01/13/18 17:35 01/13/18 22:31 01/13/18 23:50 Arterial Blood pH 7.415 (7.350-7.450) 7.424 (7.350-7.450) Arterial Blood Partial Pressure CO2 42.1 mmHg (35.0-45.0) 42.9 mmHg (35.0-45.0) Arterial Blood Partial Pressure O2 128.1 mmHg (75.0-100.0) H 121.4 mmHg (75.0-100.0) H Arterial Blood HCO3 26.4 mmol/L (22.0-26.0) H 27.5 mmol/L (22.0-26.0) H Arterial Blood Oxygen Saturation 98.2 % (92.0-98.0) H 97.8 % (92.0-98.0) Arterial Blood Base Excess 1.7 2.8 Vimal Test Positive Positive Prothrombin Time 10.8 SEC (9.30-11.50) Prothromb Time International Ratio 1.0 (0.9-1.1) White Blood Count 11.9 K/UL (4.8-10.8) H Red Blood Count 2.21 M/UL (4.70-6.10) L Hemoglobin 6.7 G/DL (14.2-18.0) *L Hematocrit 19.9 % (42.0-52.0) L Mean Corpuscular Volume 90 FL (80-99) Mean Corpuscular Hemoglobin 30.2 PG (27.0-31.0) Mean Corpuscular Hemoglobin Concent 33.6 G/DL (32.0-36.0) Red Cell Distribution Width 16.1 % (11.6-14.8) H Platelet Count 198 K/UL (150-450) Mean Platelet Volume 6.4 FL (6.5-10.1) L Neutrophils (%) (Auto) % (45.0-75.0) Lymphocytes (%) (Auto) % (20.0-45.0) Monocytes (%) (Auto) % (1.0-10.0) Eosinophils (%) (Auto) % (0.0-3.0) Basophils (%) (Auto) % (0.0-2.0) Differential Total Cells Counted 100 Neutrophils % (Manual) 86 % (45-75) H Lymphocytes % (Manual) 10 % (20-45) L Monocytes % (Manual) 4 % (1-10) Eosinophils % (Manual) 0 % (0-3) Basophils % (Manual) 0 % (0-2) Band Neutrophils 0 % (0-8) Platelet Estimate Adequate Platelet Morphology Normal Polychromasia 1+ Hypochromasia 1+ Anisocytosis 1+ Wilmar Prater MD Jan 14, 2018 11:30
--- NOTE | 2018-01-14 12:35 | General Progress Note ---
Assessment/Plan Status: not improved, unchanged Assessment/Plan # Stage IV adenocarcinoma of the lung, very poor prognosis, seen by Pulmonary and Cardiology for further monitoring as well as further recommendations. 01/[address] scan: 1. Findings strongly suggesting metastatic disease in the lungs , dominant left lower lobe lung mass with numerous additional pulmonary nodules. 2. Recommend further evaluation with appropriate screening studies, and consider PET/CT versus percutaneous lung mass CT guided core biopsy. 3. Likely neoplastic anterior right shoulder mass, considerations include metastases versus soft tissue sarcoma. This is amenable to image guided percutaneous core needle biopsy. --> hemoptysis continues at this time, seen by pulm, potentially candidate for ddavp --> reviewed [facility] records. The patient again most recently seen on 01/11, has not received any chemotherapy. Prognosis remains poor. We will continue to closely monitor. Consider outpatient treatment as needed but less likely would consider aggressive treatment. The patient also requires a PET scan. Pathology again reviewed from 12/28/2017. No major changes noted in pathology report. --> The patient does not have immunophenotypic staining. He will NOT benefit from immunotherapy. --> again prognosis for him is very poor # Anemia due to underlying chronic disease. --> Continue to closely monitor. --> Anemia workup has been reviewed, will trend daily. --> Continue the patient on Procrit 4000 units subcutaneous. --> 01/14 s/p blood tx, tolerated well. # Dysphagia, status post PEG. # Atrial flutter, status post ablation. # Congestive heart failure. # Peripheral vascular disease, status post angioplasty. Subjective Date patient seen: Jan 14, 2018 ROS Limited/Unobtainable: Yes Constitutional: Reports: weakness Respiratory: Reports: shortness of breath Allergies: Coded Allergies: LORAZEPAM (Verified Allergy, Unknown, 01/12/18) All Systems: reviewed and negative except above Subjective Pt remains in ICU, confused. Hemoptysis continues. Pt c/o sob, seen by pulm. S/ p 1 unit bood tx. Objective Last 24 Hour Vital Signs Date Time Temp Pulse Resp B/P (MAP) Pulse Ox O2 Delivery O2 Flow Rate FiO2 01/14/18 10:00 84 18 184/68 100 Nasal Cannula 2.0 01/14/18 09:00 84 18 157/74 100 Nasal Cannula 2.0 01/14/18 08:00 84 01/14/18 08:00 98.7 80 18 152/67 100 Nasal Cannula 2.0 98.7 01/14/18 07:12 89 20 97 Nasal Cannula 2.0 01/14/18 07:02 Nasal Cannula 2.0 28 01/14/18 07:02 100 Nasal Cannula 2.0 28 01/14/18 07:02 81 16 100 Nasal Cannula 2.0 28 01/14/18 07:00 83 18 112/45 100 Nasal Cannula 2.0 01/14/18 06:00 83 118/68 01/14/18 06:00 82 20 116/68 96 Nasal Cannula 2.0 01/14/18 05:00 82 18 113/40 100 Nasal Cannula 2.0 01/14/18 04:00 99.1 82 20 99/48 98 Nasal Cannula 2.0 99.1 01/14/18 03:00 83 20 97/39 100 Nasal Cannula 2.0 01/14/18 02:58 84 01/14/18 02:00 87 18 105/39 100 Nasal Cannula 2.0 01/14/18 01:23 90 20 99 Nasal Cannula 2.0 01/14/18 01:22 85 16 98 Nasal Cannula 2.0 01/14/18 01:00 78 25 100/50 100 Nasal Cannula 2.0 01/14/18 00:00 85 01/14/18 00:00 80 26 105/72 100 Nasal Cannula 2.0 01/14/18 00:00 99.1 99.1 01/13/18 23:15 98.0 85 26 99/50 100 Nasal Cannula 2.0 98.0 01/13/18 22:42 91 133/55 01/13/18 20:58 89 01/13/18 20:00 88 20 99 Nasal Cannula 2.0 01/13/18 20:00 86 01/13/18 20:00 97.9 89 20 138/42 20 Nasal Cannula 2.0 97.9 01/13/18 19:59 84 16 96 Nasal Cannula 2.0 01/13/18 19:58 Nasal Cannula 2.0 28 01/13/18 19:57 95 Nasal Cannula 2.0 28 01/13/18 16:30 Nasal Cannula 2.0 01/13/18 16:00 97.3 85 20 102/67 99 Nasal Cannula 2.0 97.3 01/13/18 16:00 88 01/13/18 13:05 79 112/56 01/13/18 13:00 Nasal Cannula 2.0 Intake and Output 01/13/18 01/14/18 19:00 07:00 Intake Total 155 ml Output Total 0 ml Balance 155 ml Intake IV Total 55 ml Tube Feeding 0 ml Blood Product 100 ml Output Urine Total 0 ml # Voids 2 Laboratory Tests 01/13/18 14:41: Arterial Blood pH 7.415, Arterial Blood Partial Pressure CO2 42.1, Arterial Blood Partial Pressure O2 128.1H, Arterial Blood HCO3 26.4H, Arterial Blood Oxygen Saturation 98.2H, Arterial Blood Base Excess 1.7, Vimal Test Positive 01/13/18 17:35: Prothrombin Time 10.8, Prothromb Time International Ratio 1.0 01/13/18 22:31: Arterial Blood pH 7.424, Arterial Blood Partial Pressure CO2 42.9, Arterial Blood Partial Pressure O2 121.4H, Arterial Blood HCO3 27.5H, Arterial Blood Oxygen Saturation 97.8, Arterial Blood Base Excess 2.8, Vimal Test Positive 01/13/18 23:50: White Blood Count 11.9H, Red Blood Count 2.21L, Hemoglobin 6.7*L, Hematocrit 19.9L, Mean Corpuscular Volume 90, Mean Corpuscular Hemoglobin 30.2, Mean Corpuscular Hemoglobin Concent 33.6, Red Cell Distribution Width 16.1H, Platelet Count 198, Mean Platelet Volume 6.4L, Neutrophils (%) (Auto) , Lymphocytes (%) (Auto) , Monocytes (%) (Auto) , Eosinophils (%) (Auto) , Basophils (%) (Auto) , Differential Total Cells Counted 100, Neutrophils % ( Manual) 86H, Lymphocytes % (Manual) 10L, Monocytes % (Manual) 4, Eosinophils % ( Manual) 0, Basophils % (Manual) 0, Band Neutrophils 0, Platelet Estimate Adequate, Platelet Morphology Normal, Polychromasia 1+, Hypochromasia 1+, Anisocytosis 1+ Height (Feet): 5 Height (Inches): 8.00 Weight (Pounds): 150 General Appearance: no apparent distress, confused EENT: PERRL/EOMI Neck: normal alignment Cardiovascular: irregularly irregular Respiratory/Chest: respiratory distress, expiratory wheezing, inspiratory wheezing Abdomen: soft Kleynberg,Jm L. MD Jan 14, 2018 12:35
[2018-01-14] MEDS ORDERED: NS 500ML ONE ×2 (13:39→13:41)
[2018-01-14] MEDS ORDERED: Tubing IV Secondary IV ONE ×2 (13:39→13:41)
[2018-01-14] MEDS ORDERED: Sterile Water Irrig 1000ml IRRIG ONE (13:41)
[2018-01-14] MEDS ORDERED: Tubing Blood Filter IV ONE (13:41)
[2018-01-14 14:39] LABS: BASOPHILS % (AUTO) 0.9 % (0.0-2.0); EOSINOPHILS % (AUTO) 2.3 % (0.0-3.0); HEMATOCRIT 24.1 % (42.0-52.0); HEMOGLOBIN 8.2 G/DL (14.2-18.0); LYMPHOCYTES % (AUTO) 10.3 % (20.0-45.0); MEAN CORPUSCULAR VOLUME 88 FL (80-99); MONOCYTES % (AUTO) 9.4 % (1.0-10.0); NEUTROPHILS % (AUTO) 77.2 % (45.0-75.0); PLATELET COUNT 170 K/UL (150-450); RED BLOOD COUNT 2.74 M/UL (4.70-6.10); RED CELL DISTRIBUTION WIDTH 15.2 % (11.6-14.8); WHITE BLOOD COUNT 11.5 K/UL (4.8-10.8)
--- NOTE | 2018-01-14 14:58 | Cardiac Electrophysiology PN ---
Assessment/Plan Assessment/Plan 1. Troponin elevation due to the patient's renal failure. He does not have any chest pain. EKG shows left bundle-branch block. 2. [place] [address]. On hemodialysis. 3. Hypokalemia, which we will be replacing. 4. Severe peripheral vascular disease. Status post intervention. 5. End-stage renal disease, on hemodialysis. 6. Metastatic stage IV lung cancer. 7. AMS. Head Ct pending result. R/O Mets DW RN Subjective Subjective In ICU still coughing up blood. Just had CT brain for AMS Objective Last 24 Hour Vital Signs Date Time Temp Pulse Resp B/P (MAP) Pulse Ox O2 Delivery O2 Flow Rate FiO2 01/14/18 13:54 86 102/66 01/14/18 13:00 86 18 102/66 100 Nasal Cannula 2.0 01/14/18 12:31 88 20 99 Nasal Cannula 2.0 28 01/14/18 12:25 85 16 100 Nasal Cannula 2.0 28 01/14/18 12:00 81 18 127/44 100 Nasal Cannula 2.0 01/14/18 12:00 84 01/14/18 11:00 86 18 110/22 100 Nasal Cannula 2.0 01/14/18 10:00 84 18 184/68 100 Nasal Cannula 2.0 01/14/18 09:00 84 18 157/74 100 Nasal Cannula 2.0 01/14/18 08:00 84 01/14/18 08:00 98.7 80 18 152/67 100 Nasal Cannula 2.0 98.7 01/14/18 07:12 89 20 97 Nasal Cannula 2.0 28 01/14/18 07:02 Nasal Cannula 2.0 28 01/14/18 07:02 100 Nasal Cannula 2.0 28 01/14/18 07:02 81 16 100 Nasal Cannula 2.0 28 01/14/18 07:00 83 18 112/45 100 Nasal Cannula 2.0 01/14/18 06:00 83 118/68 01/14/18 06:00 82 20 116/68 96 Nasal Cannula 2.0 01/14/18 05:00 82 18 113/40 100 Nasal Cannula 2.0 01/14/18 04:00 99.1 82 20 99/48 98 Nasal Cannula 2.0 99.1 01/14/18 03:00 83 20 97/39 100 Nasal Cannula 2.0 01/14/18 02:58 84 01/14/18 02:00 87 18 105/39 100 Nasal Cannula 2.0 01/14/18 01:23 90 20 99 Nasal Cannula 2.0 28 01/14/18 01:22 85 16 98 Nasal Cannula 2.0 28 01/14/18 01:00 78 25 100/50 100 Nasal Cannula 2.0 01/14/18 00:00 85 01/14/18 00:00 80 26 105/72 100 Nasal Cannula 2.0 01/14/18 00:00 99.1 99.1 01/13/18 23:15 98.0 85 26 99/50 100 Nasal Cannula 2.0 98.0 01/13/18 22:42 91 133/55 01/13/18 20:58 89 01/13/18 20:00 88 20 99 Nasal Cannula 2.0 28 01/13/18 20:00 86 01/13/18 20:00 97.9 89 20 138/42 20 Nasal Cannula 2.0 97.9 01/13/18 19:59 84 16 96 Nasal Cannula 2.0 28 01/13/18 19:58 Nasal Cannula 2.0 28 01/13/18 19:57 95 Nasal Cannula 2.0 28 01/13/18 16:30 Nasal Cannula 2.0 01/13/18 16:00 97.3 85 20 102/67 99 Nasal Cannula 2.0 97.3 01/13/18 16:00 88 Intake and Output 01/13/18 01/14/18 19:00 07:00 Intake Total 155 ml Output Total 0 ml Balance 155 ml Intake IV Total 55 ml Tube Feeding 0 ml Blood Product 100 ml Output Urine Total 0 ml # Voids 2 Laboratory Tests Test 01/13/18 17:35 01/13/18 22:31 01/13/18 23:50 01/14/18 14:17 Prothrombin Time 10.8 SEC (9.30-11.50) Prothromb Time International Ratio 1.0 (0.9-1.1) Arterial Blood pH 7.424 (7.350-7.450) Arterial Blood Partial Pressure CO2 42.9 mmHg (35.0-45.0) Arterial Blood Partial Pressure O2 121.4 mmHg (75.0-100.0) H Arterial Blood HCO3 27.5 mmol/L (22.0-26.0) H Arterial Blood Oxygen Saturation 97.8 % (92.0-98.0) Arterial Blood Base Excess 2.8 Vimal Test Positive White Blood Count 11.9 K/UL (4.8-10.8) H 11.5 K/UL (4.8-10.8) H Red Blood Count 2.21 M/UL (4.70-6.10) L 2.74 M/UL (4.70-6.10) L Hemoglobin 6.7 G/DL (14.2-18.0) *L 8.2 G/DL (14.2-18.0) L Hematocrit 19.9 % (42.0-52.0) L 24.1 % (42.0-52.0) L Mean Corpuscular Volume 90 FL (80-99) 88 FL (80-99) Mean Corpuscular Hemoglobin 30.2 PG (27.0-31.0) 30.1 PG (27.0-31.0) Mean Corpuscular Hemoglobin Concent 33.6 G/DL (32.0-36.0) 34.3 G/DL (32.0-36.0) Red Cell Distribution Width 16.1 % (11.6-14.8) H 15.2 % (11.6-14.8) H Platelet Count 198 K/UL (150-450) 170 K/UL (150-450) Mean Platelet Volume 6.4 FL (6.5-10.1) L 7.9 FL (6.5-10.1) Neutrophils (%) (Auto) % (45.0-75.0) 77.2 % (45.0-75.0) H Lymphocytes (%) (Auto) % (20.0-45.0) 10.3 % (20.0-45.0) L Monocytes (%) (Auto) % (1.0-10.0) 9.4 % (1.0-10.0) Eosinophils (%) (Auto) % (0.0-3.0) 2.3 % (0.0-3.0) Basophils (%) (Auto) % (0.0-2.0) 0.9 % (0.0-2.0) Differential Total Cells Counted 100 Neutrophils % (Manual) 86 % (45-75) H Lymphocytes % (Manual) 10 % (20-45) L Monocytes % (Manual) 4 % (1-10) Eosinophils % (Manual) 0 % (0-3) Basophils % (Manual) 0 % (0-2) Band Neutrophils 0 % (0-8) Platelet Estimate Adequate Platelet Morphology Normal Polychromasia 1+ Hypochromasia 1+ Anisocytosis 1+ Sodium Level Pending Potassium Level Pending Chloride Level Pending Carbon Dioxide Level Pending Blood Urea Nitrogen Pending Creatinine Pending Estimat Glomerular Filtration Rate Pending Glucose Level Pending Calcium Level Pending Troponin I Pending Pro-B-Type Natriuretic Peptide Pending Microbiology Date/Time Source Procedure Growth Status 01/12/18 18:05 Blood Blood Culture - Preliminary NO GROWTH AFTER 24 HOURS Resulted 01/12/18 17:50 Blood Blood Culture - Preliminary NO GROWTH AFTER 24 HOURS Resulted 01/12/18 18:00 Urine,Clean Catch Urine Culture - Final NO GROWTH AFTER 48 HOURS Complete Objective HEAD AND SHOWS: No JVD. LUNGS: Coarse rhonchi. CARDIOVASCULAR: Regular S1 and S2 with no gallop or murmur. ABDOMEN: Soft, status post G-tube. EXTREMITIES: A 1+ pitting edema. Keshav Spear MD Jan 14, 2018 14:58
--- NOTE | 2018-01-14 15:17 | Diagnostic Imaging Report ---
INDICATION: Altered mental status TECHNIQUE: Multiple, contiguous 2.5 mm axial cuts of the brain are obtained from the posterior fossa to the cranial vault. Sagittal and coronal reformatted images provided. No IV contrast is administered. One or more of the following dose reduction techniques were used: automated exposure control, adjustment of the mA and/or kV according to patient size, use of iterative reconstruction technique. COMPARISON: None FINDINGS: No intracranial hemorrhage, abnormal intra- or extra-axial collections or parenchymal lesions are seen. There are involutional changes with prominence of the sulci, basal cisterns and ventricles. Scattered white matter hypoattenuations are present, likely from small vessel disease. The martinez-white differentiation is preserved. No evidence of mass effect, midline shift, or edema. The osseous structures are unremarkable. The visualized portions of the paranasal sinuses are clear. Atherosclerotic vascular disease. IMPRESSION: 1. No acute intracranial process. 2. Involutional changes with small vessel disease. CTDI: 70.38 mGy DLP: 1421.61 mGycm
[2018-01-14 17:24] LABS: ANION GAP 13 mmol/L (5-15); BLOOD UREA NITROGEN 79 mg/dL (7-18); CALCIUM 7.8 MG/DL (8.5-10.1); CARBON DIOXIDE 25 MMOL/L (21-32); CHLORIDE 100 MMOL/L (98-107); CREATININE 6.8 MG/DL (0.55-1.30); POTASSIUM 3.2 MMOL/L (3.5-5.1); SODIUM 138 MMOL/L (136-145)
--- NOTE | 2018-01-14 17:47 | Cardiology Report ---
APPROVED REPORT EKG Measurement Heart [id number] FL 272P [id number] Sinus rhythm with sinus arrhythmia with 1st degree AV block Left axis deviation Left bundle branch block Abnormal ECG
[2018-01-14] MEDS ORDERED: Tamsulosin 0.4mg cap ORAL SCH (21:00)
[2018-01-14] MEDS ORDERED: Heparin 1000 units/ml 1ml Vial INJ SCH (21:15)
[2018-01-14] MEDS: Pantoprazole Inj IVP SCH (21:25)
[2018-01-15] VITALS (24 sets, daily range): BP systolic 88–130; BP diastolic 26–76
[2018-01-15] MEDS: Piperacillin/Tazobactam 2.25 GM in NS 55 ML IV SCH ×3 (02:32→17:00)
[2018-01-15] MEDS: Albuterol/Ipratropium 3ml neb HHN SCH ×4 (03:12→19:00)
[2018-01-15] MEDS: dilTIAZem HCl 60mg tab GT SCH ×3 (05:47→22:19)
[2018-01-15] MEDS ORDERED: Heparin Sod 1000 units/ml 10ml IV SCH (06:00)
[2018-01-15 06:07] LABS: HEMATOCRIT 23.3 % (42.0-52.0); HEMOGLOBIN 7.8 G/DL (14.2-18.0); MEAN CORPUSCULAR VOLUME 90 FL (80-99); PLATELET COUNT 184 K/UL (150-450); RED BLOOD COUNT 2.59 M/UL (4.70-6.10); RED CELL DISTRIBUTION WIDTH 15.2 % (11.6-14.8); WHITE BLOOD COUNT 11.3 K/UL (4.8-10.8)
[2018-01-15 06:39] LABS: ANION GAP 10 mmol/L (5-15); BLOOD UREA NITROGEN 84 mg/dL (7-18); CALCIUM 7.8 MG/DL (8.5-10.1); CARBON DIOXIDE 26 MMOL/L (21-32); CHLORIDE 100 MMOL/L (98-107); CREATININE 7.4 MG/DL (0.55-1.30); SODIUM 136 MMOL/L (136-145)
[2018-01-15] MEDS: Amiodarone 200mg tab GT SCH (08:29)
[2018-01-15] MEDS: Sensipar 30mg Tab GT SCH (08:29)
[2018-01-15] MEDS: Pantoprazole Inj IVP SCH ×2 (08:30→20:33)
--- NOTE | 2018-01-15 08:34 | Nephrology Progress Note ---
Assessment/Plan Plan Gross hemoptysis continues. Providing frequent HD to reduce uremic component. Transfuse PRN. ESRD - HD MWF [facility]. Subjective Subjective Confused. In ICU. Gross Hemoptysis continues. Objective Objective Last 24 Hour Vital Signs Date Time Temp Pulse Resp B/P (MAP) Pulse Ox O2 Delivery O2 Flow Rate FiO2 01/15/18 07:00 70 20 97/32 100 Nasal Cannula 2.0 01/15/18 06:41 98 Room Air 01/15/18 06:41 Room Air 01/15/18 06:41 64 18 99 Room Air 01/15/18 06:36 65 16 99 Room Air 01/15/18 06:00 76 20 101/36 99 Nasal Cannula 2.0 01/15/18 05:47 80 99/50 01/15/18 05:00 76 20 127/26 99 Nasal Cannula 2.0 01/15/18 04:00 71 01/15/18 04:00 98.5 76 20 99/28 99 Nasal Cannula 2.0 98.5 01/15/18 03:00 73 20 100/39 99 Nasal Cannula 2.0 01/15/18 02:00 72 18 98 Nasal Cannula 2.0 28 01/15/18 02:00 76 20 92/43 100 Nasal Cannula 2.0 01/15/18 02:00 74 20 99 Nasal Cannula 2.0 28 01/15/18 01:00 74 20 115/31 100 Nasal Cannula 2.0 01/15/18 00:00 74 01/15/18 00:00 98.5 74 20 103/56 99 Nasal Cannula 2.0 98.5 01/14/18 23:00 73 20 100/39 99 Nasal Cannula 2.0 01/14/18 22:18 80 110/45 01/14/18 22:00 78 18 98/41 100 Nasal Cannula 2.0 01/14/18 21:00 81 19 117/44 99 Nasal Cannula 2.0 01/14/18 20:00 78 16 98 Nasal Cannula 2.0 28 01/14/18 20:00 82 20 99 Nasal Cannula 2.0 28 01/14/18 20:00 Nasal Cannula 2.0 28 01/14/18 20:00 100 Nasal Cannula 2.0 28 01/14/18 20:00 78 01/14/18 20:00 98.6 78 18 117/55 99 Nasal Cannula 2.0 98.6 01/14/18 19:00 77 18 114/46 100 Nasal Cannula 2.0 01/14/18 18:00 81 18 113/42 100 Nasal Cannula 2.0 01/14/18 17:00 98.5 74 18 108/27 100 Nasal Cannula 2.0 98.5 01/14/18 16:00 72 18 103/38 100 Nasal Cannula 2.0 01/14/18 16:00 74 01/14/18 15:00 86 18 98/37 100 Nasal Cannula 2.0 01/14/18 14:00 86 18 113/44 100 Nasal Cannula 2.0 01/14/18 13:54 86 102/66 01/14/18 13:00 86 18 102/66 100 Nasal Cannula 2.0 01/14/18 12:31 88 20 99 Nasal Cannula 2.0 28 01/14/18 12:25 85 16 100 Nasal Cannula 2.0 28 01/14/18 12:00 81 18 127/44 100 Nasal Cannula 2.0 01/14/18 12:00 84 01/14/18 11:00 86 18 110/22 100 Nasal Cannula 2.0 01/14/18 10:00 84 18 184/68 100 Nasal Cannula 2.0 01/14/18 09:00 84 18 157/74 100 Nasal Cannula 2.0 Intake and Output 01/14/18 01/15/18 19:00 07:00 Intake Total 525 ml 655 ml Output Total 200 ml 370 ml Balance 325 ml 285 ml Intake IV Total 165 ml 55 ml Tube Feeding 360 ml 600 ml Output Urine Total 0 ml 0 ml Stool Total 50 ml Other 200 ml 320 ml # Bowel Movements 6 Laboratory Tests 01/14/18 14:17: White Blood Count 11.5H, Red Blood Count 2.74L, Hemoglobin 8.2L, Hematocrit 24.1L, Mean Corpuscular Volume 88, Mean Corpuscular Hemoglobin 30.1, Mean Corpuscular Hemoglobin Concent 34.3, Red Cell Distribution Width 15.2H, Platelet Count 170, Mean Platelet Volume 7.9, Neutrophils (%) (Auto) 77.2H, Lymphocytes (%) (Auto) 10.3L, Monocytes (%) (Auto) 9.4, Eosinophils (%) (Auto) 2.3, Basophils (%) (Auto) 0.9 01/14/18 16:30: Sodium Level 138, Potassium Level 3.2L, Chloride Level 100, Carbon Dioxide Level 25, Anion Gap 13, Blood Urea Nitrogen 79H, Creatinine 6.8H, Estimat Glomerular Filtration Rate , Glucose Level 95, Calcium Level 7.8L, Troponin I 0.247H, Pro-B-Type Natriuretic Peptide [id number] 01/15/18 02:10: Stool Occult Blood [Pending] 01/15/18 05:20: White Blood Count 11.3H, Red Blood Count 2.59L, Hemoglobin 7.8L, Hematocrit 23.3L, Mean Corpuscular Volume 90, Mean Corpuscular Hemoglobin 30.1, Mean Corpuscular Hemoglobin Concent 33.4, Red Cell Distribution Width 15.2H, Platelet Count 184, Mean Platelet Volume 7.3, Neutrophils (%) (Auto) , Lymphocytes (%) (Auto) , Monocytes (%) (Auto) , Eosinophils (%) (Auto) , Basophils (%) (Auto) , Sodium Level 136, Potassium Level 3.0L, Chloride Level 100, Carbon Dioxide Level 26, Anion Gap 10, Blood Urea Nitrogen 84H, Creatinine 7.4H, Estimat Glomerular Filtration Rate , Glucose Level 114H, Calcium Level 7.8L, Neutrophils % (Manual) [Pending], Lymphocytes % (Manual) [Pending], Platelet Estimate [Pending], Platelet Morphology [Pending] Height (Feet): 5 Height (Inches): 8.00 Weight (Pounds): 160 Objective IRR/Irr/ Lungs B ronchi Abd SNT. BS ++. PEG OK. E No Edema. + clubbing. Freddy Sandoval MD Jan 15, 2018 08:34
--- NOTE | 2018-01-15 08:53 | Pulmonolgy Critical Care Note ---
Critical Care - Asmt/Plan Problems: (1) Hemoptysis (2) Lung cancer (3) Anemia Assessment/Plan: ASSESSMENT: The patient is an 87-year-old male, extensive former smoker with a history of chronic obstructive pulmonary disease, stage IV lung adenocarcinoma, failure to thrive, cachexia, dysphagia status post G-tube, congestive heart failure, chronic atrial fibrillation, schizophrenia, organic brain syndrome, and multiple other medical problems presenting for management of continued hemoptysis PROBLEM LIST: 1. Hemoptysis likely secondary to lung cancer with possible superimposed tracheobronchitis/early pneumonia. 2. Stage IV lung adenocarcinoma diagnosed at [facility], treatment naive. 3. Chronic obstructive pulmonary disease. 4. Recent pneumonia. 5. Urinary tract infection. 6. Congestive heart failure with ischemic cardiomyopathy. 7. Atrial fibrillation and supraventricular tachycardia. 8. Hypertension. 9. Hyperlipidemia. 10. Benign prostatic hypertrophy. 11. Ischemic toes and multilevel peripheral arterial disease status post angioplasty and atherectomy. 12. Dysphagia, status post gastrostomy tube. 13. Acute on chronic anemia. 14. End-stage renal disease, on dialysis. Respiratory: other - If intubated will need R mainstem intubation and place patient on L. Plavix held, transfuse PRN. RTC and PRN HHN's. Cardiac: continue to monitor HR/BP, other - Amio, Dig, Dilt, F/U EP recs Renal: other - Daily HD per renal Infectious Disease: continue antibiotics Gastrointestinal: continue feedings/current rate Hematologic: monitor H/H, transfuse if hgb<8.5, other - F/U heme recs, no plan for systemic therapy. [facility] d/w family, they are discussing code status amongst themselves Neurologic: keep patient comfortable Prophylaxis: Protonix, SCDs Disposition: keep in ICU Time Spent (Minutes): 40 Notes Reviewed: manager federal, cardio, renal, other - HEME ONC Discussed with: nurses, consultants Critical Care - Objective Last 24 Hour Vital Signs Date Time Temp Pulse Resp B/P (MAP) Pulse Ox O2 Delivery O2 Flow Rate FiO2 01/15/18 07:00 70 20 97/32 100 Nasal Cannula 2.0 01/15/18 06:41 98 Room Air 01/15/18 06:41 Room Air 01/15/18 06:41 64 18 99 Room Air 01/15/18 06:36 65 16 99 Room Air 01/15/18 06:00 76 20 101/36 99 Nasal Cannula 2.0 01/15/18 05:47 80 99/50 01/15/18 05:00 76 20 127/26 99 Nasal Cannula 2.0 01/15/18 04:00 71 01/15/18 04:00 98.5 76 20 99/28 99 Nasal Cannula 2.0 98.5 01/15/18 03:00 73 20 100/39 99 Nasal Cannula 2.0 01/15/18 02:00 72 18 98 Nasal Cannula 2.0 28 01/15/18 02:00 76 20 92/43 100 Nasal Cannula 2.0 01/15/18 02:00 74 20 99 Nasal Cannula 2.0 28 01/15/18 01:00 74 20 115/31 100 Nasal Cannula 2.0 01/15/18 00:00 74 01/15/18 00:00 98.5 74 20 103/56 99 Nasal Cannula 2.0 98.5 01/14/18 23:00 73 20 100/39 99 Nasal Cannula 2.0 01/14/18 22:18 80 110/45 01/14/18 22:00 78 18 98/41 100 Nasal Cannula 2.0 01/14/18 21:00 81 19 117/44 99 Nasal Cannula 2.0 01/14/18 20:00 78 16 98 Nasal Cannula 2.0 28 01/14/18 20:00 82 20 99 Nasal Cannula 2.0 28 01/14/18 20:00 Nasal Cannula 2.0 28 01/14/18 20:00 100 Nasal Cannula 2.0 28 01/14/18 20:00 78 01/14/18 20:00 98.6 78 18 117/55 99 Nasal Cannula 2.0 98.6 01/14/18 19:00 77 18 114/46 100 Nasal Cannula 2.0 01/14/18 18:00 81 18 113/42 100 Nasal Cannula 2.0 01/14/18 17:00 98.5 74 18 108/27 100 Nasal Cannula 2.0 98.5 01/14/18 16:00 72 18 103/38 100 Nasal Cannula 2.0 01/14/18 16:00 74 01/14/18 15:00 86 18 98/37 100 Nasal Cannula 2.0 01/14/18 14:00 86 18 113/44 100 Nasal Cannula 2.0 01/14/18 13:54 86 102/66 01/14/18 13:00 86 18 102/66 100 Nasal Cannula 2.0 01/14/18 12:31 88 20 99 Nasal Cannula 2.0 28 01/14/18 12:25 85 16 100 Nasal Cannula 2.0 28 01/14/18 12:00 81 18 127/44 100 Nasal Cannula 2.0 01/14/18 12:00 84 01/14/18 11:00 86 18 110/22 100 Nasal Cannula 2.0 01/14/18 10:00 84 18 184/68 100 Nasal Cannula 2.0 01/14/18 09:00 84 18 157/74 100 Nasal Cannula 2.0 Status: awake Condition: grave HEENT: atraumatic, normocephalic Lungs: rhonchi Heart: HR/BP stable Abdomen: soft, non-tender, active bowel sounds, feeding tube Extremities: no C/C/E Decubiti: location - gangrenous L toe Micro: Microbiology Date/Time Source Procedure Growth Status 01/12/18 18:05 Blood Blood Culture - Preliminary NO GROWTH AFTER 48 HOURS Resulted 01/12/18 17:50 Blood Blood Culture - Preliminary NO GROWTH AFTER 48 HOURS Resulted 01/12/18 18:00 Urine,Clean Catch Urine Culture - Final NO GROWTH AFTER 48 HOURS Complete 01/12/18 18:05 Rectum VRE Culture - Final Enterococcus Faecalis - Vre Complete 01/12/18 18:05 Rectum - Final NO CARBAPENEM-RESISTANT ENTEROBACTERI... Complete Critical Care - Subjective ROS Limited/Unobtainable: Yes ICU Day: 3 Interval Events: Continued hemoptysis but respiratory status stable otherwise on/off 2L o2, CT brain neg Condition: grave IV Access: peripheral EKG Rhythm: Sinus Rhythm FI02: 28 Sputum Amount: Small Tube Feeding Amount: 50 Residuals: none I&O: Intake and Output 01/14/18 01/15/18 19:00 07:00 Intake Total 525 ml 655 ml Output Total 200 ml 370 ml Balance 325 ml 285 ml Intake IV Total 165 ml 55 ml Tube Feeding 360 ml 600 ml Output Urine Total 0 ml 0 ml Stool Total 50 ml Other 200 ml 320 ml # Bowel Movements 6 Subjective: + SOB + wheezing no F/C + hemoptysis Labs: Laboratory Tests Test 01/14/18 14:17 01/14/18 16:30 01/15/18 02:10 01/15/18 05:20 White Blood Count 11.5 K/UL (4.8-10.8) H 11.3 K/UL (4.8-10.8) H Red Blood Count 2.74 M/UL (4.70-6.10) L 2.59 M/UL (4.70-6.10) L Hemoglobin 8.2 G/DL (14.2-18.0) L 7.8 G/DL (14.2-18.0) L Hematocrit 24.1 % (42.0-52.0) L 23.3 % (42.0-52.0) L Mean Corpuscular Volume 88 FL (80-99) 90 FL (80-99) Mean Corpuscular Hemoglobin 30.1 PG (27.0-31.0) 30.1 PG (27.0-31.0) Mean Corpuscular Hemoglobin Concent 34.3 G/DL (32.0-36.0) 33.4 G/DL (32.0-36.0) Red Cell Distribution Width 15.2 % (11.6-14.8) H 15.2 % (11.6-14.8) H Platelet Count 170 K/UL (150-450) 184 K/UL (150-450) Mean Platelet Volume 7.9 FL (6.5-10.1) 7.3 FL (6.5-10.1) Neutrophils (%) (Auto) 77.2 % (45.0-75.0) H % (45.0-75.0) Lymphocytes (%) (Auto) 10.3 % (20.0-45.0) L % (20.0-45.0) Monocytes (%) (Auto) 9.4 % (1.0-10.0) % (1.0-10.0) Eosinophils (%) (Auto) 2.3 % (0.0-3.0) % (0.0-3.0) Basophils (%) (Auto) 0.9 % (0.0-2.0) % (0.0-2.0) Sodium Level 138 MMOL/L (136-145) 136 MMOL/L (136-145) Potassium Level 3.2 MMOL/L (3.5-5.1) L 3.0 MMOL/L (3.5-5.1) L Chloride Level 100 MMOL/L (98-107) 100 MMOL/L (98-107) Carbon Dioxide Level 25 MMOL/L (21-32) 26 MMOL/L (21-32) Anion Gap 13 mmol/L (5-15) 10 mmol/L (5-15) Blood Urea Nitrogen 79 mg/dL (7-18) H 84 mg/dL (7-18) H Creatinine 6.8 MG/DL (0.55-1.30) H 7.4 MG/DL (0.55-1.30) H Estimat Glomerular Filtration Rate mL/min (>60) mL/min (>60) Glucose Level 95 MG/DL (74-106) 114 MG/DL (74-106) H Calcium Level 7.8 MG/DL (8.5-10.1) L 7.8 MG/DL (8.5-10.1) L Troponin I 0.247 ng/mL (0.000-0.056) Pro-B-Type Natriuretic Peptide 96663 pg/mL (0-125) H Stool Occult Blood Pending Neutrophils % (Manual) Pending Lymphocytes % (Manual) Pending Platelet Estimate Pending Platelet Morphology Pending Wilmar Prater MD Jan 15, 2018 08:53
--- NOTE | 2018-01-15 09:16 | Cardiology Report ---
APPROVED REPORT EXAM: Two-dimensional and M-mode echocardiogram with Doppler and color Doppler. INDICATION Congestive Heart Failure M-Mode DIMENSIONS IVSd1.7 (0.7-1.1cm)Left Atrium (MM)4.3 (1.6-4.0cm) LVDd5.6 (3.5-5.6cm)Aortic Root3.3 (2.0-3.7cm) PWd1.5 (0.7-1.1cm)Aortic Cusp Exc.1.5 (1.5-2.0cm) LVDs4.0 (2.5-4.0cm) PWs1.5 cm Technically limited and difficult study due to poor acoustical windows. Patients position. Normal left ventricular chamber size, systolic function and wall motion. Left ventricular ejection fraction estimated to be 55-60 %. Mild left ventricular hypertrophy. No evidence of pericardial or pleural effusion. All other cardiac chamber sizes are within normal limits. Focal aortic valve sclerosis with adequate cusp excursion. Thickened mitral valve leaflets with normal excursion. Mild mitral annulus and aortic root calcification. Pulmonic valve is well visualized. Normal tricuspid valve structure. IVC is not obtainable. A color flow and spectral Doppler study was performed and revealed: No aortic regurgitation. No mitral regurgitation. Mitral inflow velocities indicates possible pseudo normalization pattern implying significant left ventricular diastolic dysfunction. Moderate tricuspid regurgitation. Tricuspid systolic velocities suggests peak right ventricular systolic pressure of 49mmHg Consistent with moderate pulmonary hypertension. Pulmonic regurgitation present.
--- NOTE | 2018-01-15 11:25 | General Progress Note ---
Assessment/Plan Status: not improved, unchanged Assessment/Plan # Stage IV adenocarcinoma of the lung, very poor prognosis, seen by Pulmonary and Cardiology for further monitoring as well as further recommendations. 01/[address] scan: 1. Findings strongly suggesting metastatic disease in the lungs , dominant left lower lobe lung mass with numerous additional pulmonary nodules. 2. Recommend further evaluation with appropriate screening studies, and consider PET/CT versus percutaneous lung mass CT guided core biopsy. 3. Likely neoplastic anterior right shoulder mass, considerations include metastases versus soft tissue sarcoma. This is amenable to image guided percutaneous core needle biopsy. --> hemoptysis continues at this time, seen by pulm, potentially candidate for ddavp --> reviewed [place] records. The patient again most recently seen on 01/11, has not received any chemotherapy. Prognosis remains poor. We will continue to closely monitor. Consider outpatient treatment as needed but less likely would consider aggressive treatment. The patient also requires a PET scan. Pathology again reviewed from 12/28/2017. No major changes noted in pathology report. --> The patient does not have immunophenotypic staining. He will NOT benefit from immunotherapy. --> again prognosis for him is very poor # Anemia due to underlying chronic disease. --> Continue to closely monitor. --> Anemia workup has been reviewed, will trend daily. --> Continue the patient on Procrit 4000 units subcutaneous. --> 01/14 s/p blood tx, tolerated well. # Dysphagia, status post PEG. # Atrial flutter, status post ablation. # Congestive heart failure. # Peripheral vascular disease, status post angioplasty. Subjective Date patient seen: Jan 15, 2018 ROS Limited/Unobtainable: Yes Allergies: Coded Allergies: LORAZEPAM (Verified Allergy, Unknown, 01/12/18) All Systems: reviewed and negative except above Subjective Pt remains in ICU, alert. Hemoptysis continues. No acute events. Vitals are stable. Objective Last 24 Hour Vital Signs Date Time Temp Pulse Resp B/P (MAP) Pulse Ox O2 Delivery O2 Flow Rate FiO2 01/15/18 11:00 72 20 92/32 100 Nasal Cannula 2.0 01/15/18 10:00 71 20 100/35 100 Nasal Cannula 2.0 01/15/18 09:00 70 20 99/45 100 Nasal Cannula 2.0 01/15/18 08:00 98.7 69 20 98/35 100 Nasal Cannula 2.0 98.7 01/15/18 07:00 70 20 97/32 100 Nasal Cannula 2.0 01/15/18 06:41 98 Room Air 01/15/18 06:41 Room Air 01/15/18 06:41 64 18 99 Room Air 01/15/18 06:36 65 16 99 Room Air 01/15/18 06:00 76 20 101/36 99 Nasal Cannula 2.0 01/15/18 05:47 80 99/50 01/15/18 05:00 76 20 127/26 99 Nasal Cannula 2.0 01/15/18 04:00 71 01/15/18 04:00 98.5 76 20 99/28 99 Nasal Cannula 2.0 98.5 01/15/18 03:00 73 20 100/39 99 Nasal Cannula 2.0 01/15/18 02:00 72 18 98 Nasal Cannula 2.0 28 01/15/18 02:00 76 20 92/43 100 Nasal Cannula 2.0 01/15/18 02:00 74 20 99 Nasal Cannula 2.0 28 01/15/18 01:00 74 20 115/31 100 Nasal Cannula 2.0 01/15/18 00:00 74 01/15/18 00:00 98.5 74 20 103/56 99 Nasal Cannula 2.0 98.5 01/14/18 23:00 73 20 100/39 99 Nasal Cannula 2.0 01/14/18 22:18 80 110/45 01/14/18 22:00 78 18 98/41 100 Nasal Cannula 2.0 01/14/18 21:00 81 19 117/44 99 Nasal Cannula 2.0 01/14/18 20:00 78 16 98 Nasal Cannula 2.0 28 01/14/18 20:00 82 20 99 Nasal Cannula 2.0 28 01/14/18 20:00 Nasal Cannula 2.0 28 01/14/18 20:00 100 Nasal Cannula 2.0 28 01/14/18 20:00 78 01/14/18 20:00 98.6 78 18 117/55 99 Nasal Cannula 2.0 98.6 01/14/18 19:00 77 18 114/46 100 Nasal Cannula 2.0 01/14/18 18:00 81 18 113/42 100 Nasal Cannula 2.0 01/14/18 17:00 98.5 74 18 108/27 100 Nasal Cannula 2.0 98.5 01/14/18 16:00 72 18 103/38 100 Nasal Cannula 2.0 01/14/18 16:00 74 01/14/18 15:00 86 18 98/37 100 Nasal Cannula 2.0 01/14/18 14:00 86 18 113/44 100 Nasal Cannula 2.0 01/14/18 13:54 86 102/66 01/14/18 13:00 86 18 102/66 100 Nasal Cannula 2.0 01/14/18 12:31 88 20 99 Nasal Cannula 2.0 28 01/14/18 12:25 85 16 100 Nasal Cannula 2.0 28 01/14/18 12:00 81 18 127/44 100 Nasal Cannula 2.0 01/14/18 12:00 84 Intake and Output 01/14/18 01/15/18 19:00 07:00 Intake Total 525 ml 655 ml Output Total 200 ml 370 ml Balance 325 ml 285 ml Intake IV Total 165 ml 55 ml Tube Feeding 360 ml 600 ml Output Urine Total 0 ml 0 ml Stool Total 50 ml Other 200 ml 320 ml # Bowel Movements 6 Laboratory Tests 01/14/18 14:17: White Blood Count 11.5H, Red Blood Count 2.74L, Hemoglobin 8.2L, Hematocrit 24.1L, Mean Corpuscular Volume 88, Mean Corpuscular Hemoglobin 30.1, Mean Corpuscular Hemoglobin Concent 34.3, Red Cell Distribution Width 15.2H, Platelet Count 170, Mean Platelet Volume 7.9, Neutrophils (%) (Auto) 77.2H, Lymphocytes (%) (Auto) 10.3L, Monocytes (%) (Auto) 9.4, Eosinophils (%) (Auto) 2.3, Basophils (%) (Auto) 0.9 01/14/18 16:30: Sodium Level 138, Potassium Level 3.2L, Chloride Level 100, Carbon Dioxide Level 25, Anion Gap 13, Blood Urea Nitrogen 79H, Creatinine 6.8H, Estimat Glomerular Filtration Rate , Glucose Level 95, Calcium Level 7.8L, Troponin I 0.247H, Pro-B-Type Natriuretic Peptide [id number] 01/15/18 02:10: Stool Occult Blood [Pending] 01/15/18 05:20: White Blood Count 11.3H, Red Blood Count 2.59L, Hemoglobin 7.8L, Hematocrit 23.3L, Mean Corpuscular Volume 90, Mean Corpuscular Hemoglobin 30.1, Mean Corpuscular Hemoglobin Concent 33.4, Red Cell Distribution Width 15.2H, Platelet Count 184, Mean Platelet Volume 7.3, Neutrophils (%) (Auto) , Lymphocytes (%) (Auto) , Monocytes (%) (Auto) , Eosinophils (%) (Auto) , Basophils (%) (Auto) , Sodium Level 136, Potassium Level 3.0L, Chloride Level 100, Carbon Dioxide Level 26, Anion Gap 10, Blood Urea Nitrogen 84H, Creatinine 7.4H, Estimat Glomerular Filtration Rate , Glucose Level 114H, Calcium Level 7.8L, Differential Total Cells Counted 100, Neutrophils % (Manual) 80H, Lymphocytes % (Manual) 9L, Monocytes % (Manual) 6, Eosinophils % (Manual) 5H, Basophils % (Manual) 0, Band Neutrophils 0, Platelet Estimate Adequate, Platelet Morphology Normal, Hypochromasia 1+, Anisocytosis 1+ Height (Feet): 5 Height (Inches): 8.00 Weight (Pounds): 160 General Appearance: no apparent distress, alert EENT: PERRL/EOMI Neck: normal alignment Cardiovascular: normal peripheral pulses Respiratory/Chest: no respiratory distress Abdomen: no mass Neurologic: alert Jm Gooden MD Jan 15, 2018 11:25
[2018-01-15] MEDS ORDERED: Digoxin 0.125mg tab ORAL SCH (13:45)
--- NOTE | 2018-01-15 16:18 | Cardiac Electrophysiology PN ---
Assessment/Plan Assessment/Plan 1. Troponin elevation due to the patient's renal failure. He does not have any chest pain. EKG shows left bundle-branch block. 2[place] [address]. On hemodialysis. 3. Hypokalemia, which we will be replacing. 4. Severe peripheral vascular disease. Status post intervention. 5. End-stage renal disease, on hemodialysis . 6. Metastatic stage IV lung cancer. 7. AMS. Resolved back to baseline. Head CT showed no mets Mets DW RN Subjective Subjective In ICU still coughing up blood. No CP or SOB Objective Last 24 Hour Vital Signs Date Time Temp Pulse Resp B/P (MAP) Pulse Ox O2 Delivery O2 Flow Rate FiO2 01/15/18 14:00 97.8 69 21 88/33 100 Nasal Cannula 2.0 97.8 01/15/18 13:35 74 102/31 01/15/18 13:00 74 20 103/38 100 Nasal Cannula 2.0 01/15/18 12:45 74 18 99 Room Air 01/15/18 12:40 70 16 96 Room Air 01/15/18 12:00 75 01/15/18 12:00 72 20 110/37 100 Nasal Cannula 2.0 01/15/18 11:00 72 20 92/32 100 Nasal Cannula 2.0 01/15/18 10:00 71 20 100/35 100 Nasal Cannula 2.0 01/15/18 09:00 70 20 99/45 100 Nasal Cannula 2.0 01/15/18 08:00 98.7 69 20 98/35 100 Nasal Cannula 2.0 98.7 01/15/18 08:00 86 01/15/18 07:00 70 20 97/32 100 Nasal Cannula 2.0 01/15/18 06:41 98 Room Air 01/15/18 06:41 Room Air 01/15/18 06:41 64 18 99 Room Air 01/15/18 06:36 65 16 99 Room Air 01/15/18 06:00 76 20 101/36 99 Nasal Cannula 2.0 01/15/18 05:47 80 99/50 01/15/18 05:00 76 20 127/26 99 Nasal Cannula 2.0 01/15/18 04:00 71 01/15/18 04:00 98.5 76 20 99/28 99 Nasal Cannula 2.0 98.5 01/15/18 03:00 73 20 100/39 99 Nasal Cannula 2.0 01/15/18 02:00 72 18 98 Nasal Cannula 2.0 28 01/15/18 02:00 76 20 92/43 100 Nasal Cannula 2.0 01/15/18 02:00 74 20 99 Nasal Cannula 2.0 28 01/15/18 01:00 74 20 115/31 100 Nasal Cannula 2.0 01/15/18 00:00 74 01/15/18 00:00 98.5 74 20 103/56 99 Nasal Cannula 2.0 98.5 01/14/18 23:00 73 20 100/39 99 Nasal Cannula 2.0 01/14/18 22:18 80 110/45 01/14/18 22:00 78 18 98/41 100 Nasal Cannula 2.0 01/14/18 21:00 81 19 117/44 99 Nasal Cannula 2.0 01/14/18 20:00 78 16 98 Nasal Cannula 2.0 28 01/14/18 20:00 82 20 99 Nasal Cannula 2.0 28 01/14/18 20:00 Nasal Cannula 2.0 28 01/14/18 20:00 100 Nasal Cannula 2.0 28 01/14/18 20:00 78 01/14/18 20:00 98.6 78 18 117/55 99 Nasal Cannula 2.0 98.6 01/14/18 19:00 77 18 114/46 100 Nasal Cannula 2.0 01/14/18 18:00 81 18 113/42 100 Nasal Cannula 2.0 01/14/18 17:00 98.5 74 18 108/27 100 Nasal Cannula 2.0 98.5 Intake and Output 01/14/18 01/15/18 19:00 07:00 Intake Total 525 ml 655 ml Output Total 200 ml 370 ml Balance 325 ml 285 ml Intake IV Total 165 ml 55 ml Tube Feeding 360 ml 600 ml Output Urine Total 0 ml 0 ml Stool Total 50 ml Other 200 ml 320 ml # Bowel Movements 6 Laboratory Tests Test 01/14/18 16:30 01/15/18 02:10 01/15/18 05:20 Sodium Level 138 MMOL/L (136-145) 136 MMOL/L (136-145) Potassium Level 3.2 MMOL/L (3.5-5.1) L 3.0 MMOL/L (3.5-5.1) L Chloride Level 100 MMOL/L (98-107) 100 MMOL/L (98-107) Carbon Dioxide Level 25 MMOL/L (21-32) 26 MMOL/L (21-32) Anion Gap 13 mmol/L (5-15) 10 mmol/L (5-15) Blood Urea Nitrogen 79 mg/dL (7-18) H 84 mg/dL (7-18) H Creatinine 6.8 MG/DL (0.55-1.30) H 7.4 MG/DL (0.55-1.30) H Estimat Glomerular Filtration Rate mL/min (>60) mL/min (>60) Glucose Level 95 MG/DL (74-106) 114 MG/DL (74-106) H Calcium Level 7.8 MG/DL (8.5-10.1) L 7.8 MG/DL (8.5-10.1) L Troponin I 0.247 ng/mL (0.000-0.056) Pro-B-Type Natriuretic Peptide 99526 pg/mL (0-125) H Stool Occult Blood Positive (NEGATIVE) White Blood Count 11.3 K/UL (4.8-10.8) H Red Blood Count 2.59 M/UL (4.70-6.10) L Hemoglobin 7.8 G/DL (14.2-18.0) L Hematocrit 23.3 % (42.0-52.0) L Mean Corpuscular Volume 90 FL (80-99) Mean Corpuscular Hemoglobin 30.1 PG (27.0-31.0) Mean Corpuscular Hemoglobin Concent 33.4 G/DL (32.0-36.0) Red Cell Distribution Width 15.2 % (11.6-14.8) H Platelet Count 184 K/UL (150-450) Mean Platelet Volume 7.3 FL (6.5-10.1) Neutrophils (%) (Auto) % (45.0-75.0) Lymphocytes (%) (Auto) % (20.0-45.0) Monocytes (%) (Auto) % (1.0-10.0) Eosinophils (%) (Auto) % (0.0-3.0) Basophils (%) (Auto) % (0.0-2.0) Differential Total Cells Counted 100 Neutrophils % (Manual) 80 % (45-75) H Lymphocytes % (Manual) 9 % (20-45) L Monocytes % (Manual) 6 % (1-10) Eosinophils % (Manual) 5 % (0-3) H Basophils % (Manual) 0 % (0-2) Band Neutrophils 0 % (0-8) Platelet Estimate Adequate Platelet Morphology Normal Hypochromasia 1+ Anisocytosis 1+ Microbiology Date/Time Source Procedure Growth Status 01/12/18 18:05 Blood Blood Culture - Preliminary NO GROWTH AFTER 48 HOURS Resulted 01/12/18 17:50 Blood Blood Culture - Preliminary NO GROWTH AFTER 48 HOURS Resulted 01/12/18 18:05 Nasal Not Otherwise Specified MRSA Culture - Final NO METHICILLIN RESISTANT STAPH AUREUS... Complete 01/12/18 18:00 Urine,Clean Catch Urine Culture - Final NO GROWTH AFTER 48 HOURS Complete 01/12/18 18:05 Rectum VRE Culture - Final Enterococcus Faecalis - Vre Complete 01/12/18 18:05 Rectum - Final NO CARBAPENEM-RESISTANT ENTEROBACTERI... Complete Objective HEAD AND SHOWS: No JVD. LUNGS: Coarse rhonchi. CARDIOVASCULAR: Regular S1 and S2 with no gallop or murmur. ABDOMEN: Soft, status post G-tube. EXTREMITIES: No edema. Keshav Spear MD Jan 15, 2018 16:18
[2018-01-15] MEDS ORDERED: Digoxin 0.125mg tab GT SCH (20:00)
[2018-01-15] MEDS ORDERED: Epogen (for ESRD on dialysis) SUBQ SCH (21:00)
[2018-01-15] MEDS ORDERED: Amiodarone 200mg tab ORAL SCH (21:00)
[2018-01-16] VITALS (21 sets, daily range): BP systolic 95–130; BP diastolic 40–66
[2018-01-16] MEDS: Albuterol/Ipratropium 3ml neb HHN SCH ×4 (01:44→23:53)
[2018-01-16] MEDS: Piperacillin/Tazobactam 2.25 GM in NS 55 ML IV SCH ×3 (01:52→17:00)
[2018-01-16] MEDS: dilTIAZem HCl 60mg tab GT SCH ×3 (05:54→21:25)
--- NOTE | 2018-01-16 07:16 | General Progress Note ---
Assessment/Plan Assessment/Plan # Stage IV adenocarcinoma of the lung, very poor prognosis, seen by Pulmonary for further monitoring pulm status and may need intubation thought would advise against this given terminal prognosis. 01/[address] scan: 1. Findings strongly suggesting metastatic disease in the lungs, dominant left lower lobe lung mass with numerous additional pulmonary nodules. 2. Recommend further evaluation with appropriate screening studies, and consider PET/CT versus percutaneous lung mass CT guided core biopsy. 3. Likely neoplastic anterior right shoulder mass, considerations include metastases versus soft tissue sarcoma. This is amenable to image guided percutaneous core needle biopsy. --> hemoptysis continues at this time, seen by pulm, potentially candidate for ddavp --> reviewed [place] records. The patient again most recently seen on 01/11, has not received any chemotherapy. Prognosis remains poor. We will continue to closely monitor. LESS likely would consider aggressive treatment. The patient also requires a PET scan. Pathology again reviewed from 12/28/2017. No major changes noted in pathology report. --> The patient does not have immunophenotypic staining. He will NOT benefit from immunotherapy. --> again prognosis for him is very poor # Anemia due to underlying chronic disease. also due to hemoptysis --> Continue to closely monitor. --> Anemia workup has been reviewed, will trend daily. --> Continue the patient on Procrit 4000 units subcutaneous. --> 01/14 s/p blood tx, tolerated well. # Dysphagia, status post PEG. # Atrial flutter, status post ablation. # Congestive heart failure. # Peripheral vascular disease, status post angioplasty. Subjective Allergies: Coded Allergies: LORAZEPAM (Verified Allergy, Unknown, 01/12/18) Subjective Pt remains in ICU, alert. Hemoptysis continues +++ though today less. No acute events. Vitals are stable. Objective Last 24 Hour Vital Signs Date Time Temp Pulse Resp B/P (MAP) Pulse Ox O2 Delivery O2 Flow Rate FiO2 01/16/18 06:57 65 24 98 Room Air 01/16/18 06:57 Room Air 01/16/18 06:57 98 Room Air 01/16/18 06:00 70 19 116/43 100 Room Air 01/16/18 05:54 75 125/46 01/16/18 05:00 72 19 130/49 100 Room Air 01/16/18 04:00 73 01/16/18 04:00 98.6 73 19 112/64 100 Room Air 98.6 01/16/18 03:00 73 19 114/42 98 Nasal Cannula 2.0 01/16/18 02:00 72 19 95/57 97 Nasal Cannula 2.0 01/16/18 01:49 72 13 100 Room Air 01/16/18 01:44 71 16 100 Room Air 01/16/18 01:00 72 20 125/41 98 Nasal Cannula 2.0 01/16/18 00:00 98.4 73 18 116/40 97 Nasal Cannula 2.0 98.4 01/15/18 23:00 70 19 103/49 98 Nasal Cannula 2.0 01/15/18 22:19 75 115/51 01/15/18 22:00 76 19 116/41 100 Nasal Cannula 2.0 01/15/18 21:00 75 18 130/67 100 Nasal Cannula 2.0 01/15/18 20:00 75 01/15/18 20:00 98.2 75 20 129/48 100 Nasal Cannula 2.0 98.2 01/15/18 19:56 75 01/15/18 19:04 70 13 100 Room Air 01/15/18 19:01 Room Air 01/15/18 19:01 98 Room Air 01/15/18 19:01 74 16 98 Room Air 01/15/18 19:00 73 20 116/49 100 Nasal Cannula 2.0 01/15/18 18:00 77 20 112/52 100 Nasal Cannula 2.0 01/15/18 17:00 68 20 110/42 100 Nasal Cannula 2.0 01/15/18 16:00 67 20 99/76 100 Nasal Cannula 2.0 01/15/18 16:00 82 01/15/18 15:00 67 20 102/61 100 Nasal Cannula 2.0 01/15/18 14:00 97.8 69 21 88/33 100 Nasal Cannula 2.0 97.8 01/15/18 13:35 74 102/31 01/15/18 13:00 74 20 103/38 100 Nasal Cannula 2.0 01/15/18 12:45 74 18 99 Room Air 01/15/18 12:40 70 16 96 Room Air 01/15/18 12:00 75 01/15/18 12:00 72 20 110/37 100 Nasal Cannula 2.0 01/15/18 11:00 72 20 92/32 100 Nasal Cannula 2.0 01/15/18 10:00 71 20 100/35 100 Nasal Cannula 2.0 01/15/18 09:00 70 20 99/45 100 Nasal Cannula 2.0 01/15/18 08:00 98.7 69 20 98/35 100 Nasal Cannula 2.0 98.7 01/15/18 08:00 86 Intake and Output 01/15/18 01/16/18 19:00 07:00 Intake Total 515 ml 655 ml Output Total 360 ml 135 ml Balance 155 ml 520 ml Intake IV Total 165 ml 55 ml Tube Feeding 350 ml 600 ml Output Urine Total 0 ml 0 ml Other 360 ml 135 ml # Bowel Movements 4 1 Height (Feet): 5 Height (Inches): 8.00 Weight (Pounds): 158 General Appearance: alert EENT: normal ENT inspection Neck: normal alignment Cardiovascular: regular rhythm Respiratory/Chest: no respiratory distress Abdomen: no organomegaly Extremities: non-tender Edema: 1+ Leg (L), 1+ Leg (R) Edema: mild edema Neurologic: responsive Skin: warm/dry Objective left toe gangrene Jm Gooden MD Jan 16, 2018 07:16
--- NOTE | 2018-01-16 08:57 | Critical Care Progress Note ---
Assessment/Plan Assessment/Plan PROBLEM LIST: 1. Hemoptysis likely secondary to lung cancer 2. Stage IV lung adenocarcinoma 3. Chronic obstructive pulmonary disease. 4. Recent pneumonia. 5. Urinary tract infection. 6. Congestive heart failure with ischemic cardiomyopathy. 7. Atrial fibrillation and supraventricular tachycardia. 8. Hypertension. 9. Hyperlipidemia. 10. Benign prostatic hypertrophy. 11. 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 Dysphagia, status post gastrostomy tube. 13. Acute on chronic anemia. 14. End-stage renal disease, on dialysis PLAN respiratory care monitor airway monitor for hemoptysis oxygen as needed off anticoagulants close follow up patient remains ill and critical ICU care needed medications/laboratory data/nursing notes/ICU care reviewed in detail note reviewed and edited care discussed with RN and RT ICU time spent 42 minutes Critical Care - Subjective Interval Events: events noted remains ill in the ICU ROS Limited/Unobtainable: Yes Condition: critical EKG Rhythm: Sinus Rhythm I&O: Intake and Output 01/15/18 01/16/18 19:00 07:00 Intake Total 515 ml 705 ml Output Total 360 ml 135 ml Balance 155 ml 570 ml Intake IV Total 165 ml 55 ml Tube Feeding 350 ml 650 ml Output Urine Total 0 ml 0 ml Other 360 ml 135 ml # Bowel Movements 4 1 Critical Care - Objective Last 24 Hour Vital Signs Date Time Temp Pulse Resp B/P (MAP) Pulse Ox O2 Delivery O2 Flow Rate FiO2 01/16/18 07:10 68 20 99 Room Air 01/16/18 07:00 70 19 108/64 97 Room Air 01/16/18 06:57 65 24 98 Room Air 01/16/18 06:57 Room Air 01/16/18 06:57 98 Room Air 01/16/18 06:00 70 19 116/43 100 Room Air 01/16/18 05:54 75 125/46 01/16/18 05:00 72 19 130/49 100 Room Air 01/16/18 04:00 73 01/16/18 04:00 98.6 73 19 112/64 100 Room Air 98.6 01/16/18 03:00 73 19 114/42 98 Nasal Cannula 2.0 01/16/18 02:00 72 19 95/57 97 Nasal Cannula 2.0 01/16/18 01:49 72 13 100 Room Air 01/16/18 01:44 71 16 100 Room Air 01/16/18 01:00 72 20 125/41 98 Nasal Cannula 2.0 01/16/18 00:00 98.4 73 18 116/40 97 Nasal Cannula 2.0 98.4 01/15/18 23:00 70 19 103/49 98 Nasal Cannula 2.0 01/15/18 22:19 75 115/51 01/15/18 22:00 76 19 116/41 100 Nasal Cannula 2.0 01/15/18 21:00 75 18 130/67 100 Nasal Cannula 2.0 01/15/18 20:00 75 01/15/18 20:00 98.2 75 20 129/48 100 Nasal Cannula 2.0 98.2 01/15/18 19:56 75 01/15/18 19:04 70 13 100 Room Air 01/15/18 19:01 Room Air 01/15/18 19:01 98 Room Air 01/15/18 19:01 74 16 98 Room Air 01/15/18 19:00 73 20 116/49 100 Nasal Cannula 2.0 01/15/18 18:00 77 20 112/52 100 Nasal Cannula 2.0 01/15/18 17:00 68 20 110/42 100 Nasal Cannula 2.0 01/15/18 16:00 67 20 99/76 100 Nasal Cannula 2.0 01/15/18 16:00 82 01/15/18 15:00 67 20 102/61 100 Nasal Cannula 2.0 01/15/18 14:00 97.8 69 21 88/33 100 Nasal Cannula 2.0 97.8 01/15/18 13:35 74 102/31 01/15/18 13:00 74 20 103/38 100 Nasal Cannula 2.0 01/15/18 12:45 74 18 99 Room Air 01/15/18 12:40 70 16 96 Room Air 01/15/18 12:00 75 01/15/18 12:00 72 20 110/37 100 Nasal Cannula 2.0 01/15/18 11:00 72 20 92/32 100 Nasal Cannula 2.0 01/15/18 10:00 71 20 100/35 100 Nasal Cannula 2.0 01/15/18 09:00 70 20 99/45 100 Nasal Cannula 2.0 Labs: Sp02 EP Interpretation: reviewed, normal General Appearance: no apparent distress Head: normocephalic, atraumatic Eyes: bilateral eye normal inspection Neck: normal inspection, carotid 2+ Respiratory: decreased breath sounds, some associated rhonchi Cardiovascular #1: regular rate, rhythm, no murmur without MRG Gastrointestinal: non tender, soft, non-distended, no guarding, no rebound, feeding tube Genitourinary: no CVA tenderness Musculoskeletal: no CC Neurologic: weak Ron Vaughn MD Jan 16, 2018 08:57
[2018-01-16] MEDS: Sensipar 30mg Tab GT SCH (09:13)
[2018-01-16] MEDS: Pantoprazole Inj IVP SCH (09:13)
[2018-01-16] MEDS: Amiodarone 200mg tab GT SCH (09:13)
[2018-01-16 10:20] LABS: HEMATOCRIT 23.4 % (42.0-52.0); HEMOGLOBIN 7.9 G/DL (14.2-18.0); MEAN CORPUSCULAR VOLUME 90 FL (80-99); PLATELET COUNT 206 K/UL (150-450); RED BLOOD COUNT 2.62 M/UL (4.70-6.10); RED CELL DISTRIBUTION WIDTH 15.3 % (11.6-14.8); WHITE BLOOD COUNT 12.9 K/UL (4.8-10.8)
[2018-01-16 10:32] LABS: ANION GAP 10 mmol/L (5-15); BLOOD UREA NITROGEN 92 mg/dL (7-18); CALCIUM 7.9 MG/DL (8.5-10.1); CARBON DIOXIDE 25 MMOL/L (21-32); CHLORIDE 101 MMOL/L (98-107); CREATININE 8.6 MG/DL (0.55-1.30); POTASSIUM 2.8 MMOL/L (3.5-5.1); SODIUM 136 MMOL/L (136-145)
--- NOTE | 2018-01-16 14:08 | Diagnostic Imaging Report ---
APPROVED REPORT CPT Code: 94663 Symptoms Comments: Discoloration, ulcer to left 4th toe RIGHT LEG: Common femoral artery waveform analysis is within normal limits at rest. Color flow duplex sonography reveals calcification throughout the superficial femoral artery and the popliteal artery. There is no evidence of occlusion within this segment. The tibioperoneal trunk was not well visualized. The dorsalis pedis artery was not well visualized. A moderate (30-50%) stenosis is seen in the posterior tibial artery. The distal posterior and anterior and peroneal tibial arteries are also moderately calcified. The Doppler tibial artery waveform analysis is compatible with moderate ischemia at rest. LEFT LEG: Common femoral artery waveform analysis is within normal limits at rest. Color flow duplex sonography reveals calcification throughout the superficial femoral artery and the popliteal artery. There is no evidence of occlusion within this segment. The tibioperoneal trunk was not well visualized. The distal posterior, dorsalis pedis, anterior and peroneal tibial arteries are also moderately calcified. The Doppler tibial artery waveform analysis is compatible with moderate ischemia at rest.
--- NOTE | 2018-01-16 14:08 | Diagnostic Imaging Report ---
APPROVED REPORT CPT Code: 53301 Present Symptoms Comments: R/O DVT BILATERAL: Imaging reveals a patent deep venous system bilaterally. There is no evidence of thrombus within the femoral, popliteal or tibial segments. The right greater saphenous vein is also within normal limits. Doppler indicates normal spontaneous flow within these segments. The left greater saphenous vein was not well visualized.
--- NOTE | 2018-01-16 16:31 | Nephrology Progress Note ---
Assessment/Plan Plan Gross hemoptysis continues. Providing frequent HD to reduce uremic component. Transfuse PRN. ESRD - HD TTS DW Dr. Josi Adrian. Subjective Subjective Confused. In ICU. Gross Hemoptysis continues but significantly attenuated! Had HD earlier. Net UF 2 L. Objective Objective Last 24 Hour Vital Signs Date Time Temp Pulse Resp B/P (MAP) Pulse Ox O2 Delivery O2 Flow Rate FiO2 01/16/18 16:00 69 01/16/18 16:00 98.7 69 19 110/63 98 Room Air 98.7 01/16/18 15:00 73 19 118/55 100 Room Air 01/16/18 14:26 77 117/44 01/16/18 14:00 72 19 124/52 100 Room Air 01/16/18 13:28 70 21 99 Room Air 01/16/18 13:17 77 24 98 Room Air 01/16/18 13:00 70 18 117/44 100 Room Air 01/16/18 12:54 Room Air 01/16/18 12:00 98.7 69 19 113/66 98 Room Air 98.7 01/16/18 12:00 71 01/16/18 11:00 70 18 115/50 100 Room Air 01/16/18 10:00 71 19 112/44 100 Room Air 01/16/18 09:30 Room Air 01/16/18 09:00 70 19 117/44 100 Room Air 01/16/18 08:00 70 01/16/18 08:00 98.2 75 19 110/64 98 Room Air 98.2 01/16/18 07:10 68 20 99 Room Air 01/16/18 07:00 70 19 108/64 97 Room Air 01/16/18 06:57 65 24 98 Room Air 01/16/18 06:57 Room Air 01/16/18 06:57 98 Room Air 01/16/18 06:00 70 19 116/43 100 Room Air 01/16/18 05:54 75 125/46 01/16/18 05:00 72 19 130/49 100 Room Air 01/16/18 04:00 73 01/16/18 04:00 98.6 73 19 112/64 100 Room Air 98.6 01/16/18 03:00 73 19 114/42 98 Nasal Cannula 2.0 01/16/18 02:00 72 19 95/57 97 Nasal Cannula 2.0 01/16/18 01:49 72 13 100 Room Air 01/16/18 01:44 71 16 100 Room Air 01/16/18 01:00 72 20 125/41 98 Nasal Cannula 2.0 01/16/18 00:00 98.4 73 18 116/40 97 Nasal Cannula 2.0 98.4 01/15/18 23:00 70 19 103/49 98 Nasal Cannula 2.0 01/15/18 22:19 75 115/51 01/15/18 22:00 76 19 116/41 100 Nasal Cannula 2.0 01/15/18 21:00 75 18 130/67 100 Nasal Cannula 2.0 01/15/18 20:00 75 01/15/18 20:00 98.2 75 20 129/48 100 Nasal Cannula 2.0 98.2 01/15/18 19:56 75 01/15/18 19:04 70 13 100 Room Air 01/15/18 19:01 Room Air 01/15/18 19:01 98 Room Air 01/15/18 19:01 74 16 98 Room Air 01/15/18 19:00 73 20 116/49 100 Nasal Cannula 2.0 01/15/18 18:00 77 20 112/52 100 Nasal Cannula 2.0 01/15/18 17:00 68 20 110/42 100 Nasal Cannula 2.0 Intake and Output 01/15/18 01/16/18 19:00 07:00 Intake Total 515 ml 705 ml Output Total 360 ml 135 ml Balance 155 ml 570 ml Intake IV Total 165 ml 55 ml Tube Feeding 350 ml 650 ml Output Urine Total 0 ml 0 ml Other 360 ml 135 ml # Bowel Movements 4 1 Laboratory Tests 01/16/18 09:00: White Blood Count 12.9H, Red Blood Count 2.62L, Hemoglobin 7.9L, Hematocrit 23.4L, Mean Corpuscular Volume 90, Mean Corpuscular Hemoglobin 30.3, Mean Corpuscular Hemoglobin Concent 33.8, Red Cell Distribution Width 15.3H, Platelet Count 206, Mean Platelet Volume 6.9, Neutrophils (%) (Auto) , Lymphocytes (%) (Auto) , Monocytes (%) (Auto) , Eosinophils (%) (Auto) , Basophils (%) (Auto) , Differential Total Cells Counted 100, Neutrophils % ( Manual) 80H, Lymphocytes % (Manual) 10L, Monocytes % (Manual) 8, Eosinophils % ( Manual) 2, Basophils % (Manual) 0, Band Neutrophils 0, Platelet Estimate Adequate, Platelet Morphology Normal, Hypochromasia 1+, Anisocytosis 1+, Sodium Level 136, Potassium Level 2.8L, Chloride Level 101, Carbon Dioxide Level 25, Anion Gap 10, Blood Urea Nitrogen 92H, Creatinine 8.6H, Estimat Glomerular Filtration Rate , Glucose Level 91, Calcium Level 7.9L Height (Feet): 5 Height (Inches): 8.00 Weight (Pounds): 158 Objective IRR/Irr/ Lungs B ronchi Abd SNT. BS ++. PEG OK. E No Edema. + clubbing. Freddy Sandoval MD Jan 16, 2018 16:31
--- NOTE | 2018-01-16 17:31 | Cardiac Electrophysiology PN ---
Assessment/Plan Assessment/Plan 1. Troponin elevation due to renal failure. Denies chest pain. EKG shows left bundle-branch block. 2. [place] [address]. On hemodialysis. 3. Hypokalemia, Replaced again. 4. Severe peripheral vascular disease. Status post intervention. 5. End-stage renal disease, on hemodialysis . 6. Metastatic stage IV lung cancer. 7. AMS. Resolved back to baseline. Head CT showed no mets Mets DW RN and Dr Sandoval Subjective Subjective In ICU. No CP or SOB. still coughing up blood. RN and Dr Diana at bedside. Objective Last 24 Hour Vital Signs Date Time Temp Pulse Resp B/P (MAP) Pulse Ox O2 Delivery O2 Flow Rate FiO2 01/16/18 16:00 69 01/16/18 16:00 98.7 69 19 110/63 98 Room Air 98.7 01/16/18 15:00 73 19 118/55 100 Room Air 01/16/18 14:26 77 117/44 01/16/18 14:00 72 19 124/52 100 Room Air 01/16/18 13:28 70 21 99 Room Air 01/16/18 13:17 77 24 98 Room Air 01/16/18 13:00 70 18 117/44 100 Room Air 01/16/18 12:54 Room Air 01/16/18 12:00 98.7 69 19 113/66 98 Room Air 98.7 01/16/18 12:00 71 01/16/18 11:00 70 18 115/50 100 Room Air 01/16/18 10:00 71 19 112/44 100 Room Air 01/16/18 09:30 Room Air 01/16/18 09:00 70 19 117/44 100 Room Air 01/16/18 08:00 70 01/16/18 08:00 98.2 75 19 110/64 98 Room Air 98.2 01/16/18 07:10 68 20 99 Room Air 01/16/18 07:00 70 19 108/64 97 Room Air 01/16/18 06:57 65 24 98 Room Air 01/16/18 06:57 Room Air 01/16/18 06:57 98 Room Air 01/16/18 06:00 70 19 116/43 100 Room Air 01/16/18 05:54 75 125/46 01/16/18 05:00 72 19 130/49 100 Room Air 01/16/18 04:00 73 01/16/18 04:00 98.6 73 19 112/64 100 Room Air 98.6 01/16/18 03:00 73 19 114/42 98 Nasal Cannula 2.0 01/16/18 02:00 72 19 95/57 97 Nasal Cannula 2.0 01/16/18 01:49 72 13 100 Room Air 01/16/18 01:44 71 16 100 Room Air 01/16/18 01:00 72 20 125/41 98 Nasal Cannula 2.0 01/16/18 00:00 98.4 73 18 116/40 97 Nasal Cannula 2.0 98.4 01/15/18 23:00 70 19 103/49 98 Nasal Cannula 2.0 01/15/18 22:19 75 115/51 01/15/18 22:00 76 19 116/41 100 Nasal Cannula 2.0 01/15/18 21:00 75 18 130/67 100 Nasal Cannula 2.0 01/15/18 20:00 75 01/15/18 20:00 98.2 75 20 129/48 100 Nasal Cannula 2.0 98.2 01/15/18 19:56 75 01/15/18 19:04 70 13 100 Room Air 01/15/18 19:01 Room Air 01/15/18 19:01 98 Room Air 01/15/18 19:01 74 16 98 Room Air 01/15/18 19:00 73 20 116/49 100 Nasal Cannula 2.0 01/15/18 18:00 77 20 112/52 100 Nasal Cannula 2.0 Intake and Output 01/15/18 01/16/18 19:00 07:00 Intake Total 515 ml 705 ml Output Total 360 ml 135 ml Balance 155 ml 570 ml Intake IV Total 165 ml 55 ml Tube Feeding 350 ml 650 ml Output Urine Total 0 ml 0 ml Other 360 ml 135 ml # Bowel Movements 4 1 Laboratory Tests Test 01/16/18 09:00 White Blood Count 12.9 K/UL (4.8-10.8) H Red Blood Count 2.62 M/UL (4.70-6.10) L Hemoglobin 7.9 G/DL (14.2-18.0) L Hematocrit 23.4 % (42.0-52.0) L Mean Corpuscular Volume 90 FL (80-99) Mean Corpuscular Hemoglobin 30.3 PG (27.0-31.0) Mean Corpuscular Hemoglobin Concent 33.8 G/DL (32.0-36.0) Red Cell Distribution Width 15.3 % (11.6-14.8) H Platelet Count 206 K/UL (150-450) Mean Platelet Volume 6.9 FL (6.5-10.1) Neutrophils (%) (Auto) % (45.0-75.0) Lymphocytes (%) (Auto) % (20.0-45.0) Monocytes (%) (Auto) % (1.0-10.0) Eosinophils (%) (Auto) % (0.0-3.0) Basophils (%) (Auto) % (0.0-2.0) Differential Total Cells Counted 100 Neutrophils % (Manual) 80 % (45-75) H Lymphocytes % (Manual) 10 % (20-45) L Monocytes % (Manual) 8 % (1-10) Eosinophils % (Manual) 2 % (0-3) Basophils % (Manual) 0 % (0-2) Band Neutrophils 0 % (0-8) Platelet Estimate Adequate Platelet Morphology Normal Hypochromasia 1+ Anisocytosis 1+ Sodium Level 136 MMOL/L (136-145) Potassium Level 2.8 MMOL/L (3.5-5.1) L Chloride Level 101 MMOL/L (98-107) Carbon Dioxide Level 25 MMOL/L (21-32) Anion Gap 10 mmol/L (5-15) Blood Urea Nitrogen 92 mg/dL (7-18) H Creatinine 8.6 MG/DL (0.55-1.30) H Estimat Glomerular Filtration Rate mL/min (>60) Glucose Level 91 MG/DL (74-106) Calcium Level 7.9 MG/DL (8.5-10.1) L Objective HEAD AND SHOWS: No JVD. LUNGS: Coarse rhonchi. CARDIOVASCULAR: Regular S1 and S2 with no gallop or murmur. ABDOMEN: Soft, status post G-tube. EXTREMITIES: No edema. Keshav Spear MD Jan 16, 2018 17:31
[2018-01-16] MEDS ORDERED: HydrALAZINE 25mg tab ORAL PRN (19:30)
[2018-01-16] MEDS ORDERED: Albuterol/Ipratropium 3ml neb HHN PRN (19:30)
[2018-01-16] MEDS ORDERED: Heparin 1000 units/ml 1ml Vial INJ SCH (21:15)
[2018-01-17] VITALS: BP 120/49
[2018-01-17] MEDS: Piperacillin/Tazobactam 2.25 GM in NS 55 ML IV SCH ×3 (00:20→16:20)
[2018-01-17 04:00] VITALS: BP 106/50
[2018-01-17] MEDS: dilTIAZem HCl 60mg tab GT SCH ×3 (05:59→21:53)
[2018-01-17] MEDS: Albuterol/Ipratropium 3ml neb HHN SCH ×3 (07:07→19:25)
[2018-01-17 08:00] VITALS: BP 127/53
[2018-01-17] MEDS: Amiodarone 200mg tab GT SCH (09:02)
[2018-01-17] MEDS: Sensipar 30mg Tab GT SCH (09:02)
[2018-01-17 09:06] LABS: BASOPHILS % (AUTO) 0.7 % (0.0-2.0); HEMATOCRIT 25.1 % (42.0-52.0); LYMPHOCYTES % (AUTO) 8.2 % (20.0-45.0); MEAN CORPUSCULAR VOLUME 91 FL (80-99); MONOCYTES % (AUTO) 9.2 % (1.0-10.0); NEUTROPHILS % (AUTO) 78.9 % (45.0-75.0); PLATELET COUNT 227 K/UL (150-450); RED BLOOD COUNT 2.77 M/UL (4.70-6.10); WHITE BLOOD COUNT 12.6 K/UL (4.8-10.8)
[2018-01-17 09:32] LABS: ALANINE AMINOTRANSFERASE 21 U/L (12-78); ALBUMIN 2.5 G/DL (3.4-5.0); ALBUMIN/GLOBULIN RATIO 0.6 (1.0-2.7); ALKALINE PHOSPHATASE 155 U/L (46-116); ANION GAP 10 mmol/L (5-15); ASPARTATE AMINO TRANSFERASE 33 U/L (15-37); BILIRUBIN,TOTAL 0.4 MG/DL (0.2-1.0); BLOOD UREA NITROGEN 51 mg/dL (7-18); CARBON DIOXIDE 28 MMOL/L (21-32); CHLORIDE 102 MMOL/L (98-107); CREATININE 6.2 MG/DL (0.55-1.30); POTASSIUM 2.9 MMOL/L (3.5-5.1); SODIUM 140 MMOL/L (136-145)
--- NOTE | 2018-01-17 10:18 | General Progress Note ---
Assessment/Plan Status: stable Assessment/Plan # Stage IV adenocarcinoma of the lung, very poor prognosis, seen by Pulmonary for further monitoring pulm status and may need intubation thought would advise against this given terminal prognosis. 01/[address] scan: 1. Findings strongly suggesting metastatic disease in the lungs, dominant left lower lobe lung mass with numerous additional pulmonary nodules. 2. Recommend further evaluation with appropriate screening studies, and consider PET/CT versus percutaneous lung mass CT guided core biopsy. 3. Likely neoplastic anterior right shoulder mass, considerations include metastases versus soft tissue sarcoma. This is amenable to image guided percutaneous core needle biopsy. --> hemoptysis continues at this time, seen by pulm, potentially candidate for ddavp --> reviewed [facility] records. The patient again most recently seen on 01/11, has not received any chemotherapy. Prognosis remains poor. We will continue to closely monitor. LESS likely would consider aggressive treatment. The patient also requires a PET scan. Pathology again reviewed from 12/28/2017. No major changes noted in pathology report. --> The patient does not have immunophenotypic staining. He will NOT benefit from immunotherapy. --> again prognosis for him is very poor # Anemia due to underlying chronic disease. also due to hemoptysis --> Continue to closely monitor. --> Anemia workup has been reviewed, will trend daily. --> Continue the patient on Procrit 4000 units subcutaneous. --> 01/14 s/p blood tx, tolerated well. # Dysphagia, status post PEG. # Atrial flutter, status post ablation. # Congestive heart failure. # Peripheral vascular disease, status post angioplasty. Subjective Date patient seen: Jan 17, 2018 ROS Limited/Unobtainable: Yes Allergies: Coded Allergies: LORAZEPAM (Verified Allergy, Unknown, 01/12/18) All Systems: reviewed and negative except above Subjective Pt transferred from ICU to tele, alert. Hemoptysis continues ++. No acute events. Vitals are stable. Objective Last 24 Hour Vital Signs Date Time Temp Pulse Resp B/P (MAP) Pulse Ox O2 Delivery O2 Flow Rate FiO2 01/17/18 08:00 80 01/17/18 08:00 98.3 77 18 127/53 98 Room Air 2.0 21 98.3 01/17/18 07:09 78 18 98 Room Air 01/17/18 07:00 74 16 94 Room Air 21 01/17/18 05:59 83 106/50 01/17/18 04:00 98.2 83 20 106/50 98 Room Air 98.2 01/17/18 04:00 83 01/17/18 00:04 82 18 98 Room Air 01/17/18 00:00 81 01/17/18 00:00 99.2 89 20 120/49 94 Room Air 99.2 01/16/18 23:53 86 20 96 Room Air 21 01/16/18 21:25 88 125/44 01/16/18 20:00 87 01/16/18 20:00 98.1 88 20 125/44 96 Room Air 98.1 01/16/18 19:00 71 19 110/55 100 Room Air 01/16/18 18:46 86 01/16/18 18:00 69 18 112/59 100 Room Air 01/16/18 17:00 70 19 115/55 100 Room Air 01/16/18 16:00 69 01/16/18 16:00 98.7 69 19 110/63 98 Room Air 98.7 01/16/18 15:00 73 19 118/55 100 Room Air 01/16/18 14:26 77 117/44 01/16/18 14:00 72 19 124/52 100 Room Air 01/16/18 13:28 70 21 99 Room Air 01/16/18 13:17 77 24 98 Room Air 01/16/18 13:00 70 18 117/44 100 Room Air 01/16/18 12:54 Room Air 01/16/18 12:00 98.7 69 19 113/66 98 Room Air 98.7 01/16/18 12:00 71 01/16/18 11:00 70 18 115/50 100 Room Air Intake and Output 01/16/18 01/17/18 19:00 07:00 Intake Total 515 ml 55 ml Output Total 0 ml 0 ml Balance 515 ml 55 ml Intake IV Total 165 ml 55 ml Tube Feeding 350 ml Output Urine Total 0 ml 0 ml # Bowel Movements 1 2 Laboratory Tests 01/17/18 08:45: White Blood Count 12.6H, Red Blood Count 2.77L, Hemoglobin 8.0L, Hematocrit 25.1L, Mean Corpuscular Volume 91, Mean Corpuscular Hemoglobin 29.0, Mean Corpuscular Hemoglobin Concent 32.0, Red Cell Distribution Width 16.0H, Platelet Count 227, Mean Platelet Volume 6.4L, Neutrophils (%) (Auto) 78.9H, Lymphocytes (%) (Auto) 8.2L, Monocytes (%) (Auto) 9.2, Eosinophils (%) (Auto) 3.0, Basophils (%) (Auto) 0.7, Sodium Level 140, Potassium Level 2.9L, Chloride Level 102, Carbon Dioxide Level 28, Anion Gap 10, Blood Urea Nitrogen 51H, Creatinine 6.2H, Estimat Glomerular Filtration Rate , Glucose Level 109H, Calcium Level 8.0L, Total Bilirubin 0.4, Aspartate Amino Transf (AST/SGOT) 33, Alanine Aminotransferase (ALT/SGPT) 21, Alkaline Phosphatase 155H, Total Protein 6.7, Albumin 2.5L, Globulin 4.2, Albumin/Globulin Ratio 0.6L Height (Feet): 5 Height (Inches): 8.00 Weight (Pounds): 159 General Appearance: no apparent distress, alert EENT: PERRL/EOMI Neck: normal alignment, supple Cardiovascular: normal peripheral pulses Respiratory/Chest: no respiratory distress Abdomen: soft Objective left toe gangrene Jm Gooden MD Jan 17, 2018 10:18
--- NOTE | 2018-01-17 10:51 | Critical Care Progress Note ---
Assessment/Plan Assessment/Plan PROBLEM LIST: 1. Hemoptysis likely secondary to lung cancer 2. Stage IV lung adenocarcinoma 3. Chronic obstructive pulmonary disease. 4. Recent pneumonia. 5. Urinary tract infection. 6. Congestive heart failure with ischemic cardiomyopathy. 7. Atrial fibrillation and supraventricular tachycardia. 8. Hypertension. 9. Hyperlipidemia. 10. Benign prostatic hypertrophy. 11. 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 Dysphagia, status post gastrostomy tube. 13. Acute on chronic anemia. 14. End-stage renal disease, on dialysis PLAN respiratory care as is monitor airway monitor for hemoptysis and comment oxygen as needed off anticoagulants close follow up patient remains ill and critical medications/laboratory data/nursing notes reviewed in detail note reviewed and edited care discussed with RN and RT Critical Care - Subjective Interval Events: moved out of ICU ROS Limited/Unobtainable: Yes Condition: improving I&O: Intake and Output 01/16/18 01/17/18 19:00 07:00 Intake Total 515 ml 55 ml Output Total 0 ml 0 ml Balance 515 ml 55 ml Intake IV Total 165 ml 55 ml Tube Feeding 350 ml Output Urine Total 0 ml 0 ml # Bowel Movements 1 2 Critical Care - Objective Last 24 Hour Vital Signs Date Time Temp Pulse Resp B/P (MAP) Pulse Ox O2 Delivery O2 Flow Rate FiO2 01/17/18 08:00 80 01/17/18 08:00 98.3 77 18 127/53 98 Room Air 2.0 21 98.3 01/17/18 07:09 78 18 98 Room Air 01/17/18 07:00 74 16 94 Room Air 21 01/17/18 05:59 83 106/50 01/17/18 04:00 98.2 83 20 106/50 98 Room Air 98.2 01/17/18 04:00 83 01/17/18 00:04 82 18 98 Room Air 01/17/18 00:00 81 01/17/18 00:00 99.2 89 20 120/49 94 Room Air 99.2 01/16/18 23:53 86 20 96 Room Air 21 01/16/18 21:25 88 125/44 01/16/18 20:00 87 01/16/18 20:00 98.1 88 20 125/44 96 Room Air 98.1 01/16/18 19:00 71 19 110/55 100 Room Air 01/16/18 18:46 86 01/16/18 18:00 69 18 112/59 100 Room Air 01/16/18 17:00 70 19 115/55 100 Room Air 01/16/18 16:00 69 01/16/18 16:00 98.7 69 19 110/63 98 Room Air 98.7 01/16/18 15:00 73 19 118/55 100 Room Air 01/16/18 14:26 77 117/44 01/16/18 14:00 72 19 124/52 100 Room Air 01/16/18 13:28 70 21 99 Room Air 01/16/18 13:17 77 24 98 Room Air 01/16/18 13:00 70 18 117/44 100 Room Air 01/16/18 12:54 Room Air 01/16/18 12:00 98.7 69 19 113/66 98 Room Air 98.7 01/16/18 12:00 71 01/16/18 11:00 70 18 115/50 100 Room Air Labs: Labs Test 01/14/18 14:17 01/14/18 16:30 01/15/18 02:10 01/15/18 05:20 White Blood Count 11.5 K/UL (4.8-10.8) 11.3 K/UL (4.8-10.8) Red Blood Count 2.74 M/UL (4.70-6.10) 2.59 M/UL (4.70-6.10) Hemoglobin 8.2 G/DL (14.2-18.0) 7.8 G/DL (14.2-18.0) Hematocrit 24.1 % (42.0-52.0) 23.3 % (42.0-52.0) Mean Corpuscular Volume 88 FL (80-99) 90 FL (80-99) Mean Corpuscular Hemoglobin 30.1 PG (27.0-31.0) 30.1 PG (27.0-31.0) Mean Corpuscular Hemoglobin Concent 34.3 G/DL (32.0-36.0) 33.4 G/DL (32.0-36.0) Red Cell Distribution Width 15.2 % (11.6-14.8) 15.2 % (11.6-14.8) Platelet Count 170 K/UL (150-450) 184 K/UL (150-450) Mean Platelet Volume 7.9 FL (6.5-10.1) 7.3 FL (6.5-10.1) Neutrophils (%) (Auto) 77.2 % (45.0-75.0) % (45.0-75.0) Lymphocytes (%) (Auto) 10.3 % (20.0-45.0) % (20.0-45.0) Monocytes (%) (Auto) 9.4 % (1.0-10.0) % (1.0-10.0) Eosinophils (%) (Auto) 2.3 % (0.0-3.0) % (0.0-3.0) Basophils (%) (Auto) 0.9 % (0.0-2.0) % (0.0-2.0) Sodium Level 138 MMOL/L (136-145) 136 MMOL/L (136-145) Potassium Level 3.2 MMOL/L (3.5-5.1) 3.0 MMOL/L (3.5-5.1) Chloride Level 100 MMOL/L (98-107) 100 MMOL/L (98-107) Carbon Dioxide Level 25 MMOL/L (21-32) 26 MMOL/L (21-32) Anion Gap 13 mmol/L (5-15) 10 mmol/L (5-15) Blood Urea Nitrogen 79 mg/dL (7-18) 84 mg/dL (7-18) Creatinine 6.8 MG/DL (0.55-1.30) 7.4 MG/DL (0.55-1.30) Estimat Glomerular Filtration Rate mL/min (>60) mL/min (>60) Glucose Level 95 MG/DL (74-106) 114 MG/DL (74-106) Calcium Level 7.8 MG/DL (8.5-10.1) 7.8 MG/DL (8.5-10.1) Troponin I 0.247 ng/mL (0.000-0.056) Pro-B-Type Natriuretic Peptide 19077 pg/mL (0-125) Stool Occult Blood Positive (NEGATIVE) Differential Total Cells Counted 100 Neutrophils % (Manual) 80 % (45-75) Lymphocytes % (Manual) 9 % (20-45) Monocytes % (Manual) 6 % (1-10) Eosinophils % (Manual) 5 % (0-3) Basophils % (Manual) 0 % (0-2) Band Neutrophils 0 % (0-8) Platelet Estimate Adequate Platelet Morphology Normal Hypochromasia 1+ Anisocytosis 1+ Test 01/16/18 09:00 01/17/18 08:45 White Blood Count 12.9 K/UL (4.8-10.8) 12.6 K/UL (4.8-10.8) Red Blood Count 2.62 M/UL (4.70-6.10) 2.77 M/UL (4.70-6.10) Hemoglobin 7.9 G/DL (14.2-18.0) 8.0 G/DL (14.2-18.0) Hematocrit 23.4 % (42.0-52.0) 25.1 % (42.0-52.0) Mean Corpuscular Volume 90 FL (80-99) 91 FL (80-99) Mean Corpuscular Hemoglobin 30.3 PG (27.0-31.0) 29.0 PG (27.0-31.0) Mean Corpuscular Hemoglobin Concent 33.8 G/DL (32.0-36.0) 32.0 G/DL (32.0-36.0) Red Cell Distribution Width 15.3 % (11.6-14.8) 16.0 % (11.6-14.8) Platelet Count 206 K/UL (150-450) 227 K/UL (150-450) Mean Platelet Volume 6.9 FL (6.5-10.1) 6.4 FL (6.5-10.1) Neutrophils (%) (Auto) % (45.0-75.0) 78.9 % (45.0-75.0) Lymphocytes (%) (Auto) % (20.0-45.0) 8.2 % (20.0-45.0) Monocytes (%) (Auto) % (1.0-10.0) 9.2 % (1.0-10.0) Eosinophils (%) (Auto) % (0.0-3.0) 3.0 % (0.0-3.0) Basophils (%) (Auto) % (0.0-2.0) 0.7 % (0.0-2.0) Differential Total Cells Counted 100 Neutrophils % (Manual) 80 % (45-75) Lymphocytes % (Manual) 10 % (20-45) Monocytes % (Manual) 8 % (1-10) Eosinophils % (Manual) 2 % (0-3) Basophils % (Manual) 0 % (0-2) Band Neutrophils 0 % (0-8) Platelet Estimate Adequate Platelet Morphology Normal Hypochromasia 1+ Anisocytosis 1+ Sodium Level 136 MMOL/L (136-145) 140 MMOL/L (136-145) Potassium Level 2.8 MMOL/L (3.5-5.1) 2.9 MMOL/L (3.5-5.1) Chloride Level 101 MMOL/L (98-107) 102 MMOL/L (98-107) Carbon Dioxide Level 25 MMOL/L (21-32) 28 MMOL/L (21-32) Anion Gap 10 mmol/L (5-15) 10 mmol/L (5-15) Blood Urea Nitrogen 92 mg/dL (7-18) 51 mg/dL (7-18) Creatinine 8.6 MG/DL (0.55-1.30) 6.2 MG/DL (0.55-1.30) Estimat Glomerular Filtration Rate mL/min (>60) mL/min (>60) Glucose Level 91 MG/DL (74-106) 109 MG/DL (74-106) Calcium Level 7.9 MG/DL (8.5-10.1) 8.0 MG/DL (8.5-10.1) Total Bilirubin 0.4 MG/DL (0.2-1.0) Aspartate Amino Transf (AST/SGOT) 33 U/L (15-37) Alanine Aminotransferase (ALT/SGPT) 21 U/L (12-78) Alkaline Phosphatase 155 U/L (46-116) Total Protein 6.7 G/DL (6.4-8.2) Albumin 2.5 G/DL (3.4-5.0) Globulin 4.2 g/dL Albumin/Globulin Ratio 0.6 (1.0-2.7) Objective: Sp02 EP Interpretation: reviewed, normal General Appearance: no apparent distress Head: normocephalic, atraumatic Eyes: bilateral eye normal inspection Neck: normal inspection, carotid 2+ Respiratory: decreased breath sounds, some associated rhonchi Cardiovascular #1: regular rate, rhythm, no murmur without MRG Gastrointestinal: non tender, soft, non-distended, no guarding, no rebound, feeding tube Genitourinary: no CVA tenderness Musculoskeletal: no CC Neurologic: weak Ron Vaughn MD Jan 17, 2018 10:51
--- NOTE | 2018-01-17 11:44 | Nephrology Progress Note ---
Assessment/Plan Plan Gross hemoptysis continues. Providing frequent HD to reduce uremic component. Transfuse PRN. ESRD - HD TTS DW Dr. Josi Adrian. Subjective Subjective Confused. In [facility]UANA. Much less hemoptysis!! Had HD yesterday. Net UF 2 L. Objective Objective Last 24 Hour Vital Signs Date Time Temp Pulse Resp B/P (MAP) Pulse Ox O2 Delivery O2 Flow Rate FiO2 01/17/18 08:00 80 01/17/18 08:00 98.3 77 18 127/53 98 Room Air 2.0 21 98.3 01/17/18 07:09 78 18 98 Room Air 01/17/18 07:00 74 16 94 Room Air 21 01/17/18 05:59 83 106/50 01/17/18 04:00 98.2 83 20 106/50 98 Room Air 98.2 01/17/18 04:00 83 01/17/18 00:04 82 18 98 Room Air 01/17/18 00:00 81 01/17/18 00:00 99.2 89 20 120/49 94 Room Air 99.2 01/16/18 23:53 86 20 96 Room Air 21 01/16/18 21:25 88 125/44 01/16/18 20:00 87 01/16/18 20:00 98.1 88 20 125/44 96 Room Air 98.1 01/16/18 19:00 71 19 110/55 100 Room Air 01/16/18 18:46 86 01/16/18 18:00 69 18 112/59 100 Room Air 01/16/18 17:00 70 19 115/55 100 Room Air 01/16/18 16:00 69 01/16/18 16:00 98.7 69 19 110/63 98 Room Air 98.7 01/16/18 15:00 73 19 118/55 100 Room Air 01/16/18 14:26 77 117/44 01/16/18 14:00 72 19 124/52 100 Room Air 01/16/18 13:28 70 21 99 Room Air 01/16/18 13:17 77 24 98 Room Air 01/16/18 13:00 70 18 117/44 100 Room Air 01/16/18 12:54 Room Air 01/16/18 12:00 98.7 69 19 113/66 98 Room Air 98.7 01/16/18 12:00 71 Intake and Output 01/16/18 01/17/18 19:00 07:00 Intake Total 515 ml 55 ml Output Total 0 ml 0 ml Balance 515 ml 55 ml Intake IV Total 165 ml 55 ml Tube Feeding 350 ml Output Urine Total 0 ml 0 ml # Bowel Movements 1 2 Laboratory Tests 01/17/18 08:45: White Blood Count 12.6H, Red Blood Count 2.77L, Hemoglobin 8.0L, Hematocrit 25.1L, Mean Corpuscular Volume 91, Mean Corpuscular Hemoglobin 29.0, Mean Corpuscular Hemoglobin Concent 32.0, Red Cell Distribution Width 16.0H, Platelet Count 227, Mean Platelet Volume 6.4L, Neutrophils (%) (Auto) 78.9H, Lymphocytes (%) (Auto) 8.2L, Monocytes (%) (Auto) 9.2, Eosinophils (%) (Auto) 3.0, Basophils (%) (Auto) 0.7, Sodium Level 140, Potassium Level 2.9L, Chloride Level 102, Carbon Dioxide Level 28, Anion Gap 10, Blood Urea Nitrogen 51H, Creatinine 6.2H, Estimat Glomerular Filtration Rate , Glucose Level 109H, Calcium Level 8.0L, Total Bilirubin 0.4, Aspartate Amino Transf (AST/SGOT) 33, Alanine Aminotransferase (ALT/SGPT) 21, Alkaline Phosphatase 155H, Total Protein 6.7, Albumin 2.5L, Globulin 4.2, Albumin/Globulin Ratio 0.6L, Digoxin Level 1.5 Height (Feet): 5 Height (Inches): 8.00 Weight (Pounds): 159 Objective IRR/Irr/ Lungs B ronchi Abd SNT. BS ++. PEG OK. E No Edema. + clubbing. Freddy Sandoval MD Jan 17, 2018 11:44
[2018-01-17 12:00] VITALS: BP 133/54
--- NOTE | 2018-01-17 14:02 | Cardiac Electrophysiology PN ---
Assessment/Plan Assessment/Plan 1. Troponin elevation due to renal failure. Denies chest pain. EKG shows left bundle-branch block.In SR 2. [place] [address]. On hemodialysis. 3. Hypokalemia, Replaced 4. Severe peripheral vascular disease. Status post intervention. 5. End-stage renal disease, on hemodialysis . 6. Metastatic stage IV lung cancer. 7. AMS. Resolved back to baseline. Head CT showed no mets Mets DW RN Subjective Subjective Transferred out of ICU. No CP or SOB. In SR with first degree. RN at bedside. Objective Last 24 Hour Vital Signs Date Time Temp Pulse Resp B/P (MAP) Pulse Ox O2 Delivery O2 Flow Rate FiO2 01/17/18 13:58 74 133/54 01/17/18 13:43 84 18 Room Air 01/17/18 13:30 80 16 95 Room Air 21 01/17/18 08:00 80 01/17/18 08:00 98.3 77 18 127/53 98 Room Air 2.0 21 98.3 01/17/18 07:09 78 18 98 Room Air 01/17/18 07:00 74 16 94 Room Air 21 01/17/18 05:59 83 106/50 01/17/18 04:00 98.2 83 20 106/50 98 Room Air 98.2 01/17/18 04:00 83 01/17/18 00:04 82 18 98 Room Air 01/17/18 00:00 81 01/17/18 00:00 99.2 89 20 120/49 94 Room Air 99.2 01/16/18 23:53 86 20 96 Room Air 21 01/16/18 21:25 88 125/44 01/16/18 20:00 87 01/16/18 20:00 98.1 88 20 125/44 96 Room Air 98.1 01/16/18 19:00 71 19 110/55 100 Room Air 01/16/18 18:46 86 01/16/18 18:00 69 18 112/59 100 Room Air 01/16/18 17:00 70 19 115/55 100 Room Air 01/16/18 16:00 69 01/16/18 16:00 98.7 69 19 110/63 98 Room Air 98.7 01/16/18 15:00 73 19 118/55 100 Room Air 7/3/18 14:26 77 117/44 Intake and Output 01/16/18 01/17/18 19:00 07:00 Intake Total 515 ml 55 ml Output Total 0 ml 0 ml Balance 515 ml 55 ml Intake IV Total 165 ml 55 ml Tube Feeding 350 ml Output Urine Total 0 ml 0 ml # Bowel Movements 1 2 Laboratory Tests Test 01/17/18 08:45 White Blood Count 12.6 K/UL (4.8-10.8) H Red Blood Count 2.77 M/UL (4.70-6.10) L Hemoglobin 8.0 G/DL (14.2-18.0) L Hematocrit 25.1 % (42.0-52.0) L Mean Corpuscular Volume 91 FL (80-99) Mean Corpuscular Hemoglobin 29.0 PG (27.0-31.0) Mean Corpuscular Hemoglobin Concent 32.0 G/DL (32.0-36.0) Red Cell Distribution Width 16.0 % (11.6-14.8) H Platelet Count 227 K/UL (150-450) Mean Platelet Volume 6.4 FL (6.5-10.1) L Neutrophils (%) (Auto) 78.9 % (45.0-75.0) H Lymphocytes (%) (Auto) 8.2 % (20.0-45.0) L Monocytes (%) (Auto) 9.2 % (1.0-10.0) Eosinophils (%) (Auto) 3.0 % (0.0-3.0) Basophils (%) (Auto) 0.7 % (0.0-2.0) Sodium Level 140 MMOL/L (136-145) Potassium Level 2.9 MMOL/L (3.5-5.1) L Chloride Level 102 MMOL/L (98-107) Carbon Dioxide Level 28 MMOL/L (21-32) Anion Gap 10 mmol/L (5-15) Blood Urea Nitrogen 51 mg/dL (7-18) H Creatinine 6.2 MG/DL (0.55-1.30) H Estimat Glomerular Filtration Rate mL/min (>60) Glucose Level 109 MG/DL (74-106) H Calcium Level 8.0 MG/DL (8.5-10.1) L Total Bilirubin 0.4 MG/DL (0.2-1.0) Aspartate Amino Transf (AST/SGOT) 33 U/L (15-37) Alanine Aminotransferase (ALT/SGPT) 21 U/L (12-78) Alkaline Phosphatase 155 U/L (46-116) H Total Protein 6.7 G/DL (6.4-8.2) Albumin 2.5 G/DL (3.4-5.0) L Globulin 4.2 g/dL Albumin/Globulin Ratio 0.6 (1.0-2.7) L Digoxin Level 1.5 NG/ML (0.5-2.0) Objective HEAD AND SHOWS: No JVD. LUNGS: Coarse rhonchi. CARDIOVASCULAR: Regular S1 and S2 with no gallop or murmur. ABDOMEN: Soft, status post G-tube. EXTREMITIES: No edema. Keshav Spear MD Jan 17, 2018 14:02
[2018-01-17] MEDS ORDERED: NS 500ML ONE (15:20)
[2018-01-17 16:00] VITALS: BP 117/51
[2018-01-17 20:00] VITALS: BP 125/61
[2018-01-17] MEDS: Epogen (for ESRD on dialysis) SUBQ SCH (20:50)
[2018-01-17] MEDS: Digoxin 0.125mg tab GT SCH (20:50)
--- NOTE | 2018-01-17 23:44 | Consultation ---
History of Present Illness General Chief Complaint: General Complaint Present Illness HPI 87-year-old male who presents with past medical historystage IV lung cancer, schizophrenia, G-tube dependent, SVT, history of dysphagia, status post G-tube, anxiety disorder. the pt was confused and agitated Allergies: Coded Allergies: LORAZEPAM (Verified Allergy, Unknown, 01/12/18) Medication History Scheduled Amiodarone Hcl* (Amiodarone Hcl*), 400 MG GT DAILY, (Reported) Atorvastatin Calcium* (Atorvastatin Calcium*), 20 MG GT BEDTIME, (Reported) Cinacalcet* (Sensipar*), 30 MG GT DAILY, (Reported) Cyanocobalamin/Fa/Pyridoxine (B Complex-Folic Acid Tablet), 1 TAB GT DAILY, ( Reported) Digoxin* (Digoxin*), 125 MCG GT EVERY 48 HOURS, (Reported) Diltiazem Hcl* (Cardizem*), 60 MG GT EVERY 8 HOURS, (Reported) Metoclopramide Hcl* (Metoclopramide Hcl*), 5 MG ORAL EVERY 6 HOURS, (Reported) Tamsulosin Hcl (Tamsulosin Hcl*), 0.4 MG GT BEDTIME, (Reported) Scheduled PRN Albuterol Sulfate* (Albuterol Sulfate Hhn*), 3 ML INH Q4H PRN for Shortness of Breath, (Reported) Discontinued Medications Clopidogrel* (Clopidogrel*), 75 MG ORAL DAILY, (Reported) Discontinued Reason: MD discontinued med Diltiazem Hcl* (Cardizem*), 60 MG PO QID, (Reported) Discontinued Reason: Prescription changed Epoetin Shaji (Epogen), 4,000 UNIT SUBQ 3XW, (Reported) Discontinued Reason: Medication dose changed Patient History Limited by: medical condition History Provided By: Patient, Medical Record, PMD Healthcare decision maker Resuscitation status Full Code Advanced Directive on File Yes Past Medical/Surgical History Past Medical/Surgical History: (1) Lung cancer (2) Anemia (3) Hemoptysis Review of Systems Psychiatric: Reports: prior hx, anxiety, depressed feelings, emotional problems Physical Exam General Appearance: alert, confused, agitated Last 24 Hour Vital Signs Date Time Temp Pulse Resp B/P (MAP) Pulse Ox O2 Delivery O2 Flow Rate FiO2 01/17/18 21:53 84 125/61 01/17/18 20:50 84 01/17/18 20:00 81 01/17/18 20:00 97.9 84 30 125/61 96 Room Air 97.9 01/17/18 19:47 84 18 98 Room Air 21 01/17/18 19:25 79 16 96 Room Air 21 01/17/18 16:00 97.3 79 18 117/51 95 Room Air 2.0 21 97.3 01/17/18 16:00 78 01/17/18 13:58 74 133/54 01/17/18 13:43 84 18 Room Air 01/17/18 13:30 80 16 95 Room Air 21 01/17/18 12:00 97.8 78 18 133/54 98 Room Air 2.0 21 97.8 01/17/18 12:00 76 01/17/18 08:00 80 01/17/18 08:00 98.3 77 18 127/53 98 Room Air 2.0 21 98.3 01/17/18 07:09 78 18 98 Room Air 01/17/18 07:00 74 16 94 Room Air 21 01/17/18 05:59 83 106/50 01/17/18 04:00 98.2 83 20 106/50 98 Room Air 98.2 01/17/18 04:00 83 01/17/18 00:04 82 18 98 Room Air 01/17/18 00:00 81 01/17/18 00:00 99.2 89 20 120/49 94 Room Air 99.2 01/16/18 23:53 86 20 96 Room Air 21 Intake and Output 01/16/18 01/17/18 19:00 07:00 Intake Total 515 ml 55 ml Output Total 0 ml 0 ml Balance 515 ml 55 ml Intake IV Total 165 ml 55 ml Tube Feeding 350 ml Output Urine Total 0 ml 0 ml # Bowel Movements 1 2 Laboratory Tests Test 01/17/18 08:45 White Blood Count 12.6 K/UL (4.8-10.8) H Red Blood Count 2.77 M/UL (4.70-6.10) L Hemoglobin 8.0 G/DL (14.2-18.0) L Hematocrit 25.1 % (42.0-52.0) L Mean Corpuscular Volume 91 FL (80-99) Mean Corpuscular Hemoglobin 29.0 PG (27.0-31.0) Mean Corpuscular Hemoglobin Concent 32.0 G/DL (32.0-36.0) Red Cell Distribution Width 16.0 % (11.6-14.8) H Platelet Count 227 K/UL (150-450) Mean Platelet Volume 6.4 FL (6.5-10.1) L Neutrophils (%) (Auto) 78.9 % (45.0-75.0) H Lymphocytes (%) (Auto) 8.2 % (20.0-45.0) L Monocytes (%) (Auto) 9.2 % (1.0-10.0) Eosinophils (%) (Auto) 3.0 % (0.0-3.0) Basophils (%) (Auto) 0.7 % (0.0-2.0) Sodium Level 140 MMOL/L (136-145) Potassium Level 2.9 MMOL/L (3.5-5.1) L Chloride Level 102 MMOL/L (98-107) Carbon Dioxide Level 28 MMOL/L (21-32) Anion Gap 10 mmol/L (5-15) Blood Urea Nitrogen 51 mg/dL (7-18) H Creatinine 6.2 MG/DL (0.55-1.30) H Estimat Glomerular Filtration Rate mL/min (>60) Glucose Level 109 MG/DL (74-106) H Calcium Level 8.0 MG/DL (8.5-10.1) L Total Bilirubin 0.4 MG/DL (0.2-1.0) Aspartate Amino Transf (AST/SGOT) 33 U/L (15-37) Alanine Aminotransferase (ALT/SGPT) 21 U/L (12-78) Alkaline Phosphatase 155 U/L (46-116) H Total Protein 6.7 G/DL (6.4-8.2) Albumin 2.5 G/DL (3.4-5.0) L Globulin 4.2 g/dL Albumin/Globulin Ratio 0.6 (1.0-2.7) L Digoxin Level 1.5 NG/ML (0.5-2.0) Height (Feet): 5 Height (Inches): 8.00 Weight (Pounds): 159 Medications Current Medications Medications (Trade) Dose Ordered Sig/Neeta Route PRN Reason Start Time Stop Time Status Last Admin Dose Admin Albuterol/ Ipratropium (Albuterol/ Ipratropium) 3 ml Q4H PRN HHN Shortness of Breath 01/16/18 19:30 01/18/18 19:29 Albuterol/ Ipratropium (Albuterol/ Ipratropium) 3 ml Q6HRT HHN 01/17/18 01:00 01/18/18 18:59 01/17/18 19:25 Amiodarone HCl (Cordarone) 400 mg DAILY GT 01/17/18 09:00 02/12/18 08:59 01/17/18 09:02 Atorvastatin Calcium (Lipitor) 20 mg BEDTIME GT 01/16/18 21:00 02/12/18 20:59 01/17/18 20:50 Cinacalcet (Sensipar) 30 mg DAILY GT 01/17/18 09:00 02/12/18 08:59 01/17/18 09:02 Digoxin (Lanoxin) 0.125 mg QOD@2000 GT 01/17/18 20:00 02/12/18 19:59 01/17/18 20:50 Diltiazem HCl (Cardizem) 60 mg EVERY 8 HOURS GT 01/16/18 22:00 02/12/18 05:59 01/17/18 21:53 Epoetin Shaji (Procrit (for ESRD on dialysis)) 8,000 units MON-MON-MON SUBQ 01/17/18 21:00 02/12/18 20:59 01/17/18 20:50 Heparin Sodium (Porcine) (Heparin Sod 1000 units/ml 10ml) 500 unit ONCE IV 01/18/18 11:45 01/18/18 23:59 Hydralazine HCl (Apresoline) 25 mg Q6H PRN ORAL SBP>140 01/16/18 19:30 02/13/18 19:29 Metoclopramide HCl (Reglan) 5 mg EVERY 6 HOURS ORAL 01/17/18 00:00 02/12/18 00:00 01/17/18 17:12 Piperacillin Sod/ Tazobactam Sod 2.25 gm/Sodium Chloride 55 ml @ 110 mls/hr Q8H IV 01/17/18 01:00 01/20/18 16:59 01/17/18 16:20 Sodium Chloride 1,000 ml @ 500 mls/hr Q2H PRN IVLG sbp<90 during hd 01/18/18 11:45 01/18/18 23:59 Assessment/Plan Assessment/Plan schizophrenia encephalopathy -cont current -ativan prn Annemarie Roberts MD Jan 17, 2018 23:44
--- NOTE | 2018-01-17 23:44 | General Progress Note ---
Assessment/Plan Assessment/Plan schizophrenia encephalopathy -cont current -ativan prn Subjective Neurologic/Psychiatric: Reports: anxiety, depressed Allergies: Coded Allergies: LORAZEPAM (Verified Allergy, Unknown, 01/12/18) Objective Last 24 Hour Vital Signs Date Time Temp Pulse Resp B/P (MAP) Pulse Ox O2 Delivery O2 Flow Rate FiO2 01/17/18 21:53 84 125/61 01/17/18 20:50 84 01/17/18 20:00 81 01/17/18 20:00 97.9 84 30 125/61 96 Room Air 97.9 01/17/18 19:47 84 18 98 Room Air 21 01/17/18 19:25 79 16 96 Room Air 21 01/17/18 16:00 97.3 79 18 117/51 95 Room Air 2.0 21 97.3 01/17/18 16:00 78 01/17/18 13:58 74 133/54 01/17/18 13:43 84 18 Room Air 01/17/18 13:30 80 16 95 Room Air 21 01/17/18 12:00 97.8 78 18 133/54 98 Room Air 2.0 21 97.8 01/17/18 12:00 76 01/17/18 08:00 80 01/17/18 08:00 98.3 77 18 127/53 98 Room Air 2.0 21 98.3 01/17/18 07:09 78 18 98 Room Air 01/17/18 07:00 74 16 94 Room Air 21 01/17/18 05:59 83 106/50 01/17/18 04:00 98.2 83 20 106/50 98 Room Air 98.2 01/17/18 04:00 83 01/17/18 00:04 82 18 98 Room Air 01/17/18 00:00 81 01/17/18 00:00 99.2 89 20 120/49 94 Room Air 99.2 01/16/18 23:53 86 20 96 Room Air 21 Intake and Output 01/16/18 01/17/18 19:00 07:00 Intake Total 515 ml 55 ml Output Total 0 ml 0 ml Balance 515 ml 55 ml Intake IV Total 165 ml 55 ml Tube Feeding 350 ml Output Urine Total 0 ml 0 ml # Bowel Movements 1 2 Laboratory Tests 01/17/18 08:45: White Blood Count 12.6H, Red Blood Count 2.77L, Hemoglobin 8.0L, Hematocrit 25.1L, Mean Corpuscular Volume 91, Mean Corpuscular Hemoglobin 29.0, Mean Corpuscular Hemoglobin Concent 32.0, Red Cell Distribution Width 16.0H, Platelet Count 227, Mean Platelet Volume 6.4L, Neutrophils (%) (Auto) 78.9H, Lymphocytes (%) (Auto) 8.2L, Monocytes (%) (Auto) 9.2, Eosinophils (%) (Auto) 3.0, Basophils (%) (Auto) 0.7, Sodium Level 140, Potassium Level 2.9L, Chloride Level 102, Carbon Dioxide Level 28, Anion Gap 10, Blood Urea Nitrogen 51H, Creatinine 6.2H, Estimat Glomerular Filtration Rate , Glucose Level 109H, Calcium Level 8.0L, Total Bilirubin 0.4, Aspartate Amino Transf (AST/SGOT) 33, Alanine Aminotransferase (ALT/SGPT) 21, Alkaline Phosphatase 155H, Total Protein 6.7, Albumin 2.5L, Globulin 4.2, Albumin/Globulin Ratio 0.6L, Digoxin Level 1.5 Height (Feet): 5 Height (Inches): 8.00 Weight (Pounds): 159 General Appearance: no apparent distress, alert, confused, agitated Annemarie Roberts MD Jan 17, 2018 23:44
[2018-01-18] VITALS: BP 131/49
[2018-01-18] MEDS: Albuterol/Ipratropium 3ml neb HHN SCH ×3 (00:50→12:00)
[2018-01-18] MEDS: Piperacillin/Tazobactam 2.25 GM in NS 55 ML IV SCH ×3 (00:53→17:00)
[2018-01-18 04:00] VITALS: BP 116/55
[2018-01-18] MEDS: dilTIAZem HCl 60mg tab GT SCH ×3 (05:10→21:23)
[2018-01-18 08:00] VITALS: BP 86/45
--- NOTE | 2018-01-18 08:21 | Critical Care Progress Note ---
Assessment/Plan Assessment/Plan PROBLEM LIST: 1. Hemoptysis likely secondary to lung cancer 2. Stage IV lung adenocarcinoma 3. Chronic obstructive pulmonary disease. 4. Recent pneumonia. 5. Urinary tract infection. 6. Congestive heart failure with ischemic cardiomyopathy. 7. Atrial fibrillation and supraventricular tachycardia. 8. Hypertension. 9. Hyperlipidemia. 10. Benign prostatic hypertrophy. 11. 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 Dysphagia, status post gastrostomy tube. 13. Acute on chronic anemia. 14. End-stage renal disease, on dialysis PLAN respiratory care noted no change needed monitor airway and provide care monitor for hemoptysis and comment oxygen as needed off anticoagulants close follow up patient remains ill and critical medications/laboratory data/nursing notes reviewed in detail note reviewed and edited care discussed with RN and RT Critical Care - Subjective I&O: Intake and Output 01/17/18 01/18/18 19:00 07:00 # Voids 1 # Bowel Movements 3 1 Critical Care - Objective Last 24 Hour Vital Signs Date Time Temp Pulse Resp B/P (MAP) Pulse Ox O2 Delivery O2 Flow Rate FiO2 01/18/18 07:17 80 18 96 Room Air 01/18/18 07:07 80 17 94 Room Air 01/18/18 07:07 80 17 Room Air 01/18/18 05:10 81 116/55 01/18/18 04:00 82 01/18/18 04:00 98.2 81 20 116/55 97 Nasal Cannula 2.0 98.2 01/18/18 03:20 Room Air 01/18/18 00:59 79 18 98 Room Air 01/18/18 00:51 77 16 97 Room Air 01/18/18 00:15 Room Air 01/18/18 00:00 97.8 68 20 131/49 98 Room Air 97.8 01/18/18 00:00 74 01/17/18 21:53 84 125/61 01/17/18 20:50 84 01/17/18 20:00 81 01/17/18 20:00 97.9 84 30 125/61 96 Room Air 97.9 01/17/18 19:47 84 18 98 Room Air 21 01/17/18 19:25 79 16 96 Room Air 21 01/17/18 16:00 97.3 79 18 117/51 95 Room Air 2.0 21 97.3 01/17/18 16:00 78 01/17/18 13:58 74 133/54 01/17/18 13:43 84 18 Room Air 01/17/18 13:30 80 16 95 Room Air 21 01/17/18 12:00 97.8 78 18 133/54 98 Room Air 2.0 21 97.8 01/17/18 12:00 76 Labs: Laboratory Tests Test 01/17/18 08:45 White Blood Count 12.6 K/UL (4.8-10.8) H Red Blood Count 2.77 M/UL (4.70-6.10) L Hemoglobin 8.0 G/DL (14.2-18.0) L Hematocrit 25.1 % (42.0-52.0) L Mean Corpuscular Volume 91 FL (80-99) Mean Corpuscular Hemoglobin 29.0 PG (27.0-31.0) Mean Corpuscular Hemoglobin Concent 32.0 G/DL (32.0-36.0) Red Cell Distribution Width 16.0 % (11.6-14.8) H Platelet Count 227 K/UL (150-450) Mean Platelet Volume 6.4 FL (6.5-10.1) L Neutrophils (%) (Auto) 78.9 % (45.0-75.0) H Lymphocytes (%) (Auto) 8.2 % (20.0-45.0) L Monocytes (%) (Auto) 9.2 % (1.0-10.0) Eosinophils (%) (Auto) 3.0 % (0.0-3.0) Basophils (%) (Auto) 0.7 % (0.0-2.0) Sodium Level 140 MMOL/L (136-145) Potassium Level 2.9 MMOL/L (3.5-5.1) L Chloride Level 102 MMOL/L (98-107) Carbon Dioxide Level 28 MMOL/L (21-32) Anion Gap 10 mmol/L (5-15) Blood Urea Nitrogen 51 mg/dL (7-18) H Creatinine 6.2 MG/DL (0.55-1.30) H Estimat Glomerular Filtration Rate mL/min (>60) Glucose Level 109 MG/DL (74-106) H Calcium Level 8.0 MG/DL (8.5-10.1) L Total Bilirubin 0.4 MG/DL (0.2-1.0) Aspartate Amino Transf (AST/SGOT) 33 U/L (15-37) Alanine Aminotransferase (ALT/SGPT) 21 U/L (12-78) Alkaline Phosphatase 155 U/L (46-116) H Total Protein 6.7 G/DL (6.4-8.2) Albumin 2.5 G/DL (3.4-5.0) L Globulin 4.2 g/dL Albumin/Globulin Ratio 0.6 (1.0-2.7) L Digoxin Level 1.5 NG/ML (0.5-2.0) Objective: Sp02 EP Interpretation: reviewed, normal General Appearance: no apparent distress Head: normocephalic, atraumatic Eyes: bilateral eye normal inspection Neck: normal inspection, carotid 2+ Respiratory: decreased breath sounds, some associated rhonchi without much change Cardiovascular #1: regular rate, rhythm, no murmur without MRG Gastrointestinal: non tender, soft, non-distended, no guarding, no rebound, feeding tube Genitourinary: no CVA tenderness Musculoskeletal: no CC Neurologic: weak Ron Vaughn MD Jan 18, 2018 08:21
--- NOTE | 2018-01-18 08:50 | Nephrology Progress Note ---
Assessment/Plan Plan Gross hemoptysis stopped. Providing frequent HD to reduce uremic component. Transfuse PRN. ESRD - HD TTS Left VM to pt's daughter Liz. Subjective Subjective Confused. In LUANA. Much less hemoptysis!! Had HD yesterday. Net UF 2 L. Objective Objective Last 24 Hour Vital Signs Date Time Temp Pulse Resp B/P (MAP) Pulse Ox O2 Delivery O2 Flow Rate FiO2 01/18/18 07:17 80 18 96 Room Air 21 01/18/18 07:07 80 17 94 Room Air 21 01/18/18 07:07 80 17 Room Air 21 01/18/18 05:10 81 116/55 01/18/18 04:00 82 01/18/18 04:00 98.2 81 20 116/55 97 Nasal Cannula 2.0 98.2 01/18/18 03:20 Room Air 01/18/18 00:59 79 18 98 Room Air 21 01/18/18 00:51 77 16 97 Room Air 21 01/18/18 00:15 Room Air 01/18/18 00:00 97.8 68 20 131/49 98 Room Air 97.8 01/18/18 00:00 74 01/17/18 21:53 84 125/61 01/17/18 20:50 84 01/17/18 20:00 81 01/17/18 20:00 97.9 84 30 125/61 96 Room Air 97.9 01/17/18 19:47 84 18 98 Room Air 21 01/17/18 19:25 79 16 96 Room Air 21 01/17/18 16:00 97.3 79 18 117/51 95 Room Air 2.0 21 97.3 01/17/18 16:00 78 01/17/18 13:58 74 133/54 01/17/18 13:43 84 18 Room Air 01/17/18 13:30 80 16 95 Room Air 21 01/17/18 12:00 97.8 78 18 133/54 98 Room Air 2.0 21 97.8 01/17/18 12:00 76 Intake and Output 01/17/18 01/18/18 19:00 07:00 # Voids 1 # Bowel Movements 3 1 Height (Feet): 5 Height (Inches): 8.00 Weight (Pounds): 159 Objective IRR/Irr/ Lungs B ronchi Abd SNT. BS ++. PEG OK. E No Edema. + clubbing. Freddy Sandoval MD Jan 18, 2018 08:50
[2018-01-18] MEDS: Amiodarone 200mg tab GT SCH (09:00)
[2018-01-18] MEDS: Sensipar 30mg Tab GT SCH (09:07)
--- NOTE | 2018-01-18 10:23 | Cardiac Electrophysiology PN ---
Assessment/Plan Assessment/Plan 1. Troponin elevation due to renal failure. Denies chest pain. EKG shows left bundle-branch block.In SR 2[place] [address]. On hemodialysis. 3. Hypokalemia, Replaced 4. Severe peripheral vascular disease. Status post intervention. 5. End-stage renal disease, on hemodialysis .Had HD at 1 am today 6. Metastatic stage IV lung cancer. 7. AMS. Resolved back to baseline. Head CT showed no mets Mets DW RN Subjective Subjective In SR with first degree. Still coughing up blood. Objective Last 24 Hour Vital Signs Date Time Temp Pulse Resp B/P (MAP) Pulse Ox O2 Delivery O2 Flow Rate FiO2 01/18/18 08:00 86 01/18/18 08:00 98.4 80 18 86/45 96 Room Air 2.0 21 98.4 01/18/18 07:17 80 18 96 Room Air 01/18/18 07:07 80 17 94 Room Air 01/18/18 07:07 80 17 Room Air 01/18/18 05:10 81 116/55 01/18/18 04:00 82 01/18/18 04:00 98.2 81 20 116/55 97 Nasal Cannula 2.0 98.2 01/18/18 03:20 Room Air 01/18/18 00:59 79 18 98 Room Air 01/18/18 00:51 77 16 97 Room Air 21 01/18/18 00:15 Room Air 01/18/18 00:00 97.8 68 20 131/49 98 Room Air 97.8 01/18/18 00:00 74 01/17/18 21:53 84 125/61 01/17/18 20:50 84 01/17/18 20:00 81 01/17/18 20:00 97.9 84 30 125/61 96 Room Air 97.9 01/17/18 19:47 84 18 98 Room Air 21 01/17/18 19:25 79 16 96 Room Air 21 01/17/18 16:00 97.3 79 18 117/51 95 Room Air 2.0 21 97.3 01/17/18 16:00 78 01/17/18 13:58 74 133/54 01/17/18 13:43 84 18 Room Air 01/17/18 13:30 80 16 95 Room Air 21 01/17/18 12:00 97.8 78 18 133/54 98 Room Air 2.0 21 97.8 01/17/18 12:00 76 Intake and Output 01/17/18 01/18/18 19:00 07:00 # Voids 1 # Bowel Movements 3 1 Objective HEAD AND SHOWS: No JVD. LUNGS: Coarse rhonchi. CARDIOVASCULAR: Regular S1 and S2 with no gallop or murmur. ABDOMEN: Soft, status post G-tube. EXTREMITIES: No edema. Keshav Spear MD Jan 18, 2018 10:23
[2018-01-18] MEDS ORDERED: Heparin Sod 1000 units/ml 10ml IV SCH (11:45)
[2018-01-18 12:00] VITALS: BP 102/56
--- NOTE | 2018-01-18 15:28 | General Progress Note ---
Assessment/Plan Status: not improved, unchanged Assessment/Plan # Stage IV adenocarcinoma of the lung, very poor prognosis, seen by Pulmonary for further monitoring pulm status and may need intubation thought would advise against this given terminal prognosis. 01/[address] scan: 1. Findings strongly suggesting metastatic disease in the lungs, dominant left lower lobe lung mass with numerous additional pulmonary nodules. 2. Recommend further evaluation with appropriate screening studies, and consider PET/CT versus percutaneous lung mass CT guided core biopsy. 3. Likely neoplastic anterior right shoulder mass, considerations include metastases versus soft tissue sarcoma. This is amenable to image guided percutaneous core needle biopsy. --> hemoptysis continues at this time, seen by pulm, potentially candidate for ddavp --> reviewed [place] records. The patient again most recently seen on 01/11, has not received any chemotherapy. Prognosis remains poor. We will continue to closely monitor. LESS likely would consider aggressive treatment. The patient also requires a PET scan. Pathology again reviewed from 12/28/2017. No major changes noted in pathology report. --> The patient does not have immunophenotypic staining. He will NOT benefit from immunotherapy. --> again prognosis for him is very poor # Anemia due to underlying chronic disease. also due to hemoptysis --> Continue to closely monitor. --> Anemia workup has been reviewed, will trend daily. --> Continue the patient on Procrit 4000 units subcutaneous. --> 01/14 s/p blood tx, tolerated well. # Dysphagia, status post PEG. # Atrial flutter, status post ablation. # Congestive heart failure. # Peripheral vascular disease, status post angioplasty. Subjective Date patient seen: Jan 18, 2018 ROS Limited/Unobtainable: Yes Allergies: Coded Allergies: LORAZEPAM (Verified Allergy, Unknown, 01/12/18) All Systems: reviewed and negative except above Subjective Pt scheduled for HD today. Hemoptysis continues ++. Vitals are stable. Objective Last 24 Hour Vital Signs Date Time Temp Pulse Resp B/P (MAP) Pulse Ox O2 Delivery O2 Flow Rate FiO2 01/18/18 13:50 87 102/56 01/18/18 12:10 85 17 96 Room Air 21 01/18/18 12:00 98.2 87 20 102/56 95 Room Air 2.0 21 98.2 01/18/18 12:00 84 20 95 Room Air 21 01/18/18 08:00 86 01/18/18 08:00 98.4 80 18 86/45 96 Room Air 2.0 21 98.4 01/18/18 07:17 80 18 96 Room Air 21 01/18/18 07:07 80 17 94 Room Air 21 01/18/18 07:07 80 17 Room Air 21 01/18/18 05:10 81 116/55 01/18/18 04:00 82 01/18/18 04:00 98.2 81 20 116/55 97 Nasal Cannula 2.0 98.2 01/18/18 03:20 Room Air 01/18/18 00:59 79 18 98 Room Air 01/18/18 00:51 77 16 97 Room Air 01/18/18 00:15 Room Air 01/18/18 00:00 97.8 68 20 131/49 98 Room Air 97.8 01/18/18 00:00 74 01/17/18 21:53 84 125/61 01/17/18 20:50 84 01/17/18 20:00 81 01/17/18 20:00 97.9 84 30 125/61 96 Room Air 97.9 01/17/18 19:47 84 18 98 Room Air 21 01/17/18 19:25 79 16 96 Room Air 21 01/17/18 16:00 97.3 79 18 117/51 95 Room Air 2.0 21 97.3 01/17/18 16:00 78 Intake and Output 01/17/18 01/18/18 19:00 07:00 # Voids 1 # Bowel Movements 3 1 Height (Feet): 5 Height (Inches): 8.00 Weight (Pounds): 159 General Appearance: alert EENT: PERRL/EOMI Neck: normal alignment Cardiovascular: normal peripheral pulses Respiratory/Chest: no respiratory distress Abdomen: no mass Objective left toe gangrene Jm Gooden MD Jan 18, 2018 15:28
[2018-01-18 16:00] VITALS: BP 129/53
--- NOTE | 2018-01-18 16:32 | General Progress Note ---
Assessment/Plan Status: stable, progressing Assessment/Plan schizophrenia encephalopathy -cont current -ativan prn Subjective Date patient seen: Jan 18, 2018 Neurologic/Psychiatric: Reports: anxiety, depressed Allergies: Coded Allergies: LORAZEPAM (Verified Allergy, Unknown, 01/12/18) Objective Last 24 Hour Vital Signs Date Time Temp Pulse Resp B/P (MAP) Pulse Ox O2 Delivery O2 Flow Rate FiO2 01/18/18 16:00 83 01/18/18 13:50 87 102/56 01/18/18 12:10 85 17 96 Room Air 21 01/18/18 12:00 98.2 87 20 102/56 95 Room Air 2.0 21 98.2 01/18/18 12:00 84 20 95 Room Air 21 01/18/18 12:00 80 01/18/18 08:00 86 01/18/18 08:00 98.4 80 18 86/45 96 Room Air 2.0 21 98.4 01/18/18 07:17 80 18 96 Room Air 21 01/18/18 07:07 80 17 94 Room Air 21 01/18/18 07:07 80 17 Room Air 21 01/18/18 05:10 81 116/55 01/18/18 04:00 82 01/18/18 04:00 98.2 81 20 116/55 97 Nasal Cannula 2.0 98.2 01/18/18 03:20 Room Air 01/18/18 00:59 79 18 98 Room Air 21 01/18/18 00:51 77 16 97 Room Air 21 01/18/18 00:15 Room Air 01/18/18 00:00 97.8 68 20 131/49 98 Room Air 97.8 01/18/18 00:00 74 01/17/18 21:53 84 125/61 01/17/18 20:50 84 01/17/18 20:00 81 01/17/18 20:00 97.9 84 30 125/61 96 Room Air 97.9 01/17/18 19:47 84 18 98 Room Air 21 01/17/18 19:25 79 16 96 Room Air 21 Intake and Output 01/17/18 01/18/18 19:00 07:00 # Voids 1 # Bowel Movements 3 1 Height (Feet): 5 Height (Inches): 8.00 Weight (Pounds): 159 Annemarie Roberts MD Jan 18, 2018 16:32
[2018-01-18 20:00] VITALS: BP 130/56
[2018-01-18] MEDS ORDERED: Heparin Sod 1000 units/ml 10ml IV PRN (20:30)
[2018-01-19] VITALS: BP 116/45
[2018-01-19] MEDS: Piperacillin/Tazobactam 2.25 GM in NS 55 ML IV SCH ×3 (00:10→17:38)
[2018-01-19] MEDS: Haloperidol 5mg/ml Inj IM PRN ×3 (01:09→17:50)
[2018-01-19 04:00] VITALS: BP 125/58
[2018-01-19] MEDS: dilTIAZem HCl 60mg tab GT SCH ×3 (05:38→21:08)
--- NOTE | 2018-01-19 07:03 | Nephrology Progress Note ---
Assessment/Plan Plan Gross hemoptysis stopped. Providing frequent HD to reduce uremic component. Transfuse PRN. ESRD - HD TTS Left VM to pt's daughter Liz. No call back Subjective Subjective Confused. In LUANA. Rare hemoptysis!! Objective Objective Last 24 Hour Vital Signs Date Time Temp Pulse Resp B/P (MAP) Pulse Ox O2 Delivery O2 Flow Rate FiO2 01/19/18 05:38 74 125/58 01/19/18 04:00 83 01/19/18 04:00 98.1 74 22 125/58 96 Room Air 2.0 21 98.1 01/19/18 00:00 97.9 85 20 116/45 95 Room Air 2.0 21 97.9 01/19/18 00:00 100 01/18/18 21:23 90 130/56 01/18/18 20:00 98.5 90 20 130/56 96 Room Air 2.0 21 98.5 01/18/18 20:00 93 01/18/18 19:40 94 Nasal Cannula 2.0 28 01/18/18 19:40 Nasal Cannula 2.0 28 01/18/18 16:00 83 01/18/18 16:00 98.0 80 18 129/53 96 Room Air 2.0 21 98.0 01/18/18 13:50 87 102/56 01/18/18 12:10 85 17 96 Room Air 21 01/18/18 12:00 98.2 87 20 102/56 95 Room Air 2.0 21 98.2 01/18/18 12:00 84 20 95 Room Air 21 01/18/18 12:00 80 01/18/18 08:00 86 01/18/18 08:00 98.4 80 18 86/45 96 Room Air 2.0 21 98.4 01/18/18 07:17 80 18 96 Room Air 21 01/18/18 07:07 80 17 94 Room Air 21 01/18/18 07:07 80 17 Room Air 21 Intake and Output 01/18/18 01/19/18 19:00 07:00 Intake Total 0 ml Output Total 0 ml 3 ml Balance 0 ml -3 ml Intake Oral 0 ml Output Urine Total 0 ml Stool Total 3 ml # Bowel Movements 3 1 Height (Feet): 5 Height (Inches): 8.00 Weight (Pounds): 160 Objective IRR/Irr/ Lungs B jaycob Rashid SNT. BS ++. PEG OK. E No Edema. + clubbing. Freddy Sandoval MD Jan 19, 2018 07:03
[2018-01-19 08:00] VITALS: BP 127/52
[2018-01-19] MEDS: Sensipar 30mg Tab GT SCH (08:16)
[2018-01-19] MEDS: Amiodarone 200mg tab GT SCH (08:16)
--- NOTE | 2018-01-19 08:24 | Critical Care Progress Note ---
Assessment/Plan Assessment/Plan PROBLEM LIST: 1. Hemoptysis likely secondary to lung cancer 2. Stage IV lung adenocarcinoma 3. Chronic obstructive pulmonary disease. 4. Recent pneumonia. 5. Urinary tract infection. 6. Congestive heart failure with ischemic cardiomyopathy. 7. Atrial fibrillation and supraventricular tachycardia. 8. Hypertension. 9. Hyperlipidemia. 10. Benign prostatic hypertrophy. 11. 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 Dysphagia, status post gastrostomy tube. 13. Acute on chronic anemia. 14. End-stage renal disease, on dialysis PLAN respiratory care without change monitor airway and provide care monitor for hemoptysis and comment oxygen as needed off anticoagulants at present close follow up patient remains ill and critical close monitoring for change and deterioration medications/laboratory data/nursing notes reviewed in detail note reviewed and edited care discussed with RN and RT Critical Care - Subjective ROS Limited/Unobtainable: Yes Condition: unchanged EKG Rhythm: Sinus Rhythm I&O: Intake and Output 01/18/18 01/19/18 19:00 07:00 Intake Total 0 ml 505 ml Output Total 0 ml 48 ml Balance 0 ml 457 ml Intake Oral 0 ml IV Total 55 ml Tube Feeding 450 ml Output Urine Total 0 ml Stool Total 3 ml Emesis 45 ml # Bowel Movements 3 1 Critical Care - Objective Last 24 Hour Vital Signs Date Time Temp Pulse Resp B/P (MAP) Pulse Ox O2 Delivery O2 Flow Rate FiO2 01/19/18 05:38 74 125/58 01/19/18 04:00 83 01/19/18 04:00 98.1 74 22 125/58 96 Room Air 2.0 21 98.1 01/19/18 00:00 97.9 85 20 116/45 95 Room Air 2.0 21 97.9 01/19/18 00:00 100 01/18/18 21:23 90 130/56 01/18/18 20:00 98.5 90 20 130/56 96 Room Air 2.0 21 98.5 01/18/18 20:00 93 01/18/18 19:40 94 Nasal Cannula 2.0 28 01/18/18 19:40 Nasal Cannula 2.0 28 01/18/18 16:00 83 01/18/18 16:00 98.0 80 18 129/53 96 Room Air 2.0 21 98.0 01/18/18 13:50 87 102/56 01/18/18 12:10 85 17 96 Room Air 21 01/18/18 12:00 98.2 87 20 102/56 95 Room Air 2.0 21 98.2 01/18/18 12:00 84 20 95 Room Air 21 01/18/18 12:00 80 Labs: Labs Test 01/16/18 09:00 01/17/18 08:45 White Blood Count 12.9 K/UL (4.8-10.8) 12.6 K/UL (4.8-10.8) Red Blood Count 2.62 M/UL (4.70-6.10) 2.77 M/UL (4.70-6.10) Hemoglobin 7.9 G/DL (14.2-18.0) 8.0 G/DL (14.2-18.0) Hematocrit 23.4 % (42.0-52.0) 25.1 % (42.0-52.0) Mean Corpuscular Volume 90 FL (80-99) 91 FL (80-99) Mean Corpuscular Hemoglobin 30.3 PG (27.0-31.0) 29.0 PG (27.0-31.0) Mean Corpuscular Hemoglobin Concent 33.8 G/DL (32.0-36.0) 32.0 G/DL (32.0-36.0) Red Cell Distribution Width 15.3 % (11.6-14.8) 16.0 % (11.6-14.8) Platelet Count 206 K/UL (150-450) 227 K/UL (150-450) Mean Platelet Volume 6.9 FL (6.5-10.1) 6.4 FL (6.5-10.1) Neutrophils (%) (Auto) % (45.0-75.0) 78.9 % (45.0-75.0) Lymphocytes (%) (Auto) % (20.0-45.0) 8.2 % (20.0-45.0) Monocytes (%) (Auto) % (1.0-10.0) 9.2 % (1.0-10.0) Eosinophils (%) (Auto) % (0.0-3.0) 3.0 % (0.0-3.0) Basophils (%) (Auto) % (0.0-2.0) 0.7 % (0.0-2.0) Differential Total Cells Counted 100 Neutrophils % (Manual) 80 % (45-75) Lymphocytes % (Manual) 10 % (20-45) Monocytes % (Manual) 8 % (1-10) Eosinophils % (Manual) 2 % (0-3) Basophils % (Manual) 0 % (0-2) Band Neutrophils 0 % (0-8) Platelet Estimate Adequate Platelet Morphology Normal Hypochromasia 1+ Anisocytosis 1+ Sodium Level 136 MMOL/L (136-145) 140 MMOL/L (136-145) Potassium Level 2.8 MMOL/L (3.5-5.1) 2.9 MMOL/L (3.5-5.1) Chloride Level 101 MMOL/L (98-107) 102 MMOL/L (98-107) Carbon Dioxide Level 25 MMOL/L (21-32) 28 MMOL/L (21-32) Anion Gap 10 mmol/L (5-15) 10 mmol/L (5-15) Blood Urea Nitrogen 92 mg/dL (7-18) 51 mg/dL (7-18) Creatinine 8.6 MG/DL (0.55-1.30) 6.2 MG/DL (0.55-1.30) Estimat Glomerular Filtration Rate mL/min (>60) mL/min (>60) Glucose Level 91 MG/DL (74-106) 109 MG/DL (74-106) Calcium Level 7.9 MG/DL (8.5-10.1) 8.0 MG/DL (8.5-10.1) Total Bilirubin 0.4 MG/DL (0.2-1.0) Aspartate Amino Transf (AST/SGOT) 33 U/L (15-37) Alanine Aminotransferase (ALT/SGPT) 21 U/L (12-78) Alkaline Phosphatase 155 U/L (46-116) Total Protein 6.7 G/DL (6.4-8.2) Albumin 2.5 G/DL (3.4-5.0) Globulin 4.2 g/dL Albumin/Globulin Ratio 0.6 (1.0-2.7) Digoxin Level 1.5 NG/ML (0.5-2.0) Objective: Sp02 EP Interpretation: reviewed, normal General Appearance: no apparent distress Head: normocephalic, atraumatic Eyes: bilateral eye normal inspection Neck: normal inspection, carotid 2+ Respiratory: decreased breath sounds, minimal rhonchi and no wheeze Cardiovascular #1: regular rate, rhythm, no murmur without MRG Gastrointestinal: non tender, soft, non-distended, no guarding, no rebound, feeding tube Genitourinary: no CVA tenderness Musculoskeletal: no CC Neurologic: weak Ron Vaughn MD Jan 19, 2018 08:24
[2018-01-19] MEDS ORDERED: Sterile Water Irrig 1000ml IRRIG ONE (10:07)
[2018-01-19 12:00] VITALS: BP 127/52
--- NOTE | 2018-01-19 12:48 | General Progress Note ---
Assessment/Plan Status: not improved Assessment/Plan # Stage IV adenocarcinoma of the lung, very poor prognosis, seen by Pulmonary for further monitoring pulm status and may need intubation thought would advise against this given terminal prognosis. 01/[address] scan: 1. Findings strongly suggesting metastatic disease in the lungs, dominant left lower lobe lung mass with numerous additional pulmonary nodules. 2. Recommend further evaluation with appropriate screening studies, and consider PET/CT versus percutaneous lung mass CT guided core biopsy. 3. Likely neoplastic anterior right shoulder mass, considerations include metastases versus soft tissue sarcoma. This is amenable to image guided percutaneous core needle biopsy. --> hemoptysis continues at this time, seen by pulm, potentially candidate for ddavp --> reviewed [place] records. The patient again most recently seen on 01/11, has not received any chemotherapy. Prognosis remains poor. We will continue to closely monitor. LESS likely would consider aggressive treatment. The patient also requires a PET scan. Pathology again reviewed from 12/28/2017. No major changes noted in pathology report. --> The patient does not have immunophenotypic staining. He will NOT benefit from immunotherapy. --> again prognosis for him is very poor # Anemia due to underlying chronic disease. also due to hemoptysis --> Continue to closely monitor. --> Anemia workup has been reviewed, will trend daily. --> Continue the patient on Procrit 4000 units subcutaneous. --> 01/14 s/p blood tx, tolerated well. # Dysphagia, status post PEG. # Atrial flutter, status post ablation. # Congestive heart failure. # Peripheral vascular disease, status post angioplasty. Subjective Date patient seen: Jan 19, 2018 Allergies: Coded Allergies: LORAZEPAM (Verified Allergy, Unknown, 01/12/18) All Systems: reviewed and negative except above Subjective Hemoptysis continues ++. Vitals are stable. DC planning. Objective Last 24 Hour Vital Signs Date Time Temp Pulse Resp B/P (MAP) Pulse Ox O2 Delivery O2 Flow Rate FiO2 01/19/18 08:00 97.6 82 20 127/52 96 Room Air 2.0 21 97.6 01/19/18 08:00 88 01/19/18 05:38 74 125/58 01/19/18 04:00 83 01/19/18 04:00 98.1 74 22 125/58 96 Room Air 2.0 21 98.1 01/19/18 00:00 97.9 85 20 116/45 95 Room Air 2.0 21 97.9 01/19/18 00:00 100 01/18/18 21:23 90 130/56 01/18/18 20:00 98.5 90 20 130/56 96 Room Air 2.0 21 98.5 01/18/18 20:00 93 01/18/18 19:40 94 Nasal Cannula 2.0 28 01/18/18 19:40 Nasal Cannula 2.0 28 01/18/18 16:00 83 01/18/18 16:00 98.0 80 18 129/53 96 Room Air 2.0 21 98.0 01/18/18 13:50 87 102/56 Intake and Output 01/18/18 01/19/18 19:00 07:00 Intake Total 0 ml 505 ml Output Total 0 ml 48 ml Balance 0 ml 457 ml Intake Oral 0 ml IV Total 55 ml Tube Feeding 450 ml Output Urine Total 0 ml Stool Total 3 ml Emesis 45 ml # Bowel Movements 3 1 Height (Feet): 5 Height (Inches): 8.00 Weight (Pounds): 160 General Appearance: no apparent distress, lethargic EENT: PERRL/EOMI Neck: normal alignment Cardiovascular: normal peripheral pulses Respiratory/Chest: no respiratory distress Abdomen: tender Objective left toe gangrene Jm Gooden MD Jan 19, 2018 12:48
--- NOTE | 2018-01-19 13:10 | General Progress Note ---
Assessment/Plan Status: stable Assessment/Plan schizophrenia encephalopathy -cont current -ativan prn Subjective Date patient seen: Jan 19, 2018 Neurologic/Psychiatric: Reports: anxiety, depressed Allergies: Coded Allergies: LORAZEPAM (Verified Allergy, Unknown, 01/12/18) Subjective The pt is calmer and asleep Objective Last 24 Hour Vital Signs Date Time Temp Pulse Resp B/P (MAP) Pulse Ox O2 Delivery O2 Flow Rate FiO2 01/19/18 08:00 97.6 82 20 127/52 96 Room Air 2.0 21 97.6 01/19/18 08:00 88 01/19/18 05:38 74 125/58 01/19/18 04:00 83 01/19/18 04:00 98.1 74 22 125/58 96 Room Air 2.0 21 98.1 01/19/18 00:00 97.9 85 20 116/45 95 Room Air 2.0 21 97.9 01/19/18 00:00 100 01/18/18 21:23 90 130/56 01/18/18 20:00 98.5 90 20 130/56 96 Room Air 2.0 21 98.5 01/18/18 20:00 93 01/18/18 19:40 94 Nasal Cannula 2.0 28 01/18/18 19:40 Nasal Cannula 2.0 28 01/18/18 16:00 83 01/18/18 16:00 98.0 80 18 129/53 96 Room Air 2.0 21 98.0 01/18/18 13:50 87 102/56 Intake and Output 01/18/18 01/19/18 19:00 07:00 Intake Total 0 ml 505 ml Output Total 0 ml 48 ml Balance 0 ml 457 ml Intake Oral 0 ml IV Total 55 ml Tube Feeding 450 ml Output Urine Total 0 ml Stool Total 3 ml Emesis 45 ml # Bowel Movements 3 1 Height (Feet): 5 Height (Inches): 8.00 Weight (Pounds): 160 General Appearance: no apparent distress, alert, confused Annemarie Roberts MD Jan 19, 2018 13:10
--- NOTE | 2018-01-19 15:27 | Cardiac Electrophysiology PN ---
Assessment/Plan Assessment/Plan 1. Troponin elevation due to renal failure. Denies chest pain. Has left bundle-branch block.In SR 2. [place] [address]. On hemodialysis. 3. Hypokalemia, Replaced 4. Severe peripheral vascular disease. Status post intervention. 5. End-stage renal disease, on hemodialysis. 6. Metastatic stage IV lung cancer. 7. AMS. Resolved back to baseline. Head CT showed no mets Mets DW RN Subjective Subjective In SR with first degree. No events on tele now. Objective Last 24 Hour Vital Signs Date Time Temp Pulse Resp B/P (MAP) Pulse Ox O2 Delivery O2 Flow Rate FiO2 01/19/18 13:23 88 127/52 01/19/18 12:00 97.7 91 20 127/52 (77) 96 97.7 01/19/18 08:00 97.6 82 20 127/52 96 Room Air 2.0 21 97.6 01/19/18 08:00 88 01/19/18 05:38 74 125/58 01/19/18 04:00 83 01/19/18 04:00 98.1 74 22 125/58 96 Room Air 2.0 21 98.1 01/19/18 00:00 97.9 85 20 116/45 95 Room Air 2.0 21 97.9 01/19/18 00:00 100 01/18/18 21:23 90 130/56 01/18/18 20:00 98.5 90 20 130/56 96 Room Air 2.0 21 98.5 01/18/18 20:00 93 01/18/18 19:40 94 Nasal Cannula 2.0 28 01/18/18 19:40 Nasal Cannula 2.0 28 01/18/18 16:00 83 01/18/18 16:00 98.0 80 18 129/53 96 Room Air 2.0 21 98.0 Intake and Output 01/18/18 01/19/18 19:00 07:00 Intake Total 0 ml 505 ml Output Total 0 ml 48 ml Balance 0 ml 457 ml Intake Oral 0 ml IV Total 55 ml Tube Feeding 450 ml Output Urine Total 0 ml Stool Total 3 ml Emesis 45 ml # Bowel Movements 3 1 Objective HEAD AND SHOWS: No JVD. LUNGS: Coarse rhonchi. CARDIOVASCULAR: Regular S1 and S2 with no gallop or murmur. ABDOMEN: Soft, status post G-tube. EXTREMITIES: No edema. Keshav Spear MD Jan 19, 2018 15:27
[2018-01-19 16:00] VITALS: BP 138/58
[2018-01-19 20:00] VITALS: BP 144/59
[2018-01-19] MEDS: Digoxin 0.125mg tab GT SCH (21:07)
[2018-01-20] VITALS (8 sets, daily range): BP systolic 69–144; BP diastolic 36–77
[2018-01-20] MEDS: Piperacillin/Tazobactam 2.25 GM in NS 55 ML IV SCH ×3 (00:29→17:23)
[2018-01-20] MEDS: dilTIAZem HCl 60mg tab GT SCH ×3 (06:00→20:45)
[2018-01-20] MEDS ORDERED: Heparin Sod 1000 units/ml 10ml IV PRN (07:00)
[2018-01-20] MEDS: Sensipar 30mg Tab GT SCH (08:23)
[2018-01-20] MEDS: Amiodarone 200mg tab GT SCH (08:24)
[2018-01-20] MEDS: Epogen (for ESRD on dialysis) SUBQ SCH (08:24)
[2018-01-20 08:51] LABS: HEMATOCRIT 23.9 % (42.0-52.0); HEMOGLOBIN 7.7 G/DL (14.2-18.0); MEAN CORPUSCULAR VOLUME 91 FL (80-99); PLATELET COUNT 249 K/UL (150-450); RED BLOOD COUNT 2.63 M/UL (4.70-6.10); RED CELL DISTRIBUTION WIDTH 16.5 % (11.6-14.8); WHITE BLOOD COUNT 15.1 K/UL (4.8-10.8)
--- NOTE | 2018-01-20 09:00 | Nephrology Progress Note ---
Assessment/Plan Plan Gross hemoptysis intermittently. Providing frequent HD to reduce uremic component. Transfuse PRN. ESRD - HD TTS Spoke to pt's daughter Liz. She agrees to go back to SNF. Now the SNF refusing to take patient back. Subjective Subjective Confused. In [place]UA[place]. Rare hemoptysis!! Objective Objective Last 24 Hour Vital Signs Date Time Temp Pulse Resp B/P (MAP) Pulse Ox O2 Delivery O2 Flow Rate FiO2 01/20/18 08:00 97.2 94 19 125/53 (77) 97 97.2 01/20/18 06:00 82 112/51 01/20/18 04:00 98.6 81 20 131/43 (72) 97 98.6 01/20/18 04:00 77 01/20/18 03:40 Room Air 01/20/18 00:40 Room Air 01/20/18 00:00 74 01/20/18 00:00 98.7 76 20 144/51 (82) 97 98.7 01/19/18 21:08 80 144/59 01/19/18 21:07 80 01/19/18 21:00 Room Air 01/19/18 20:00 80 01/19/18 20:00 98.6 81 18 144/59 (87) 96 98.6 01/19/18 18:32 97 Nasal Cannula 01/19/18 18:32 Room Air 01/19/18 16:00 97.8 88 20 138/58 (84) 96 97.8 01/19/18 16:00 72 01/19/18 13:23 88 127/52 01/19/18 12:00 81 01/19/18 12:00 97.7 91 20 127/52 (77) 96 97.7 Intake and Output 01/19/18 01/20/18 19:00 07:00 Intake Total 700 ml Output Total 60 ml Balance 640 ml Free Water 100 ml Tube Feeding 600 ml Emesis 60 ml # Voids 3 1 # Bowel Movements 4 5 Laboratory Tests 01/20/18 07:20: White Blood Count [Pending], Red Blood Count [Pending], Hemoglobin [Pending], Hematocrit [Pending], Mean Corpuscular Volume [Pending], Mean Corpuscular Hemoglobin [Pending], Mean Corpuscular Hemoglobin Concent [Pending], Red Cell Distribution Width [Pending], Platelet Count [Pending], Mean Platelet Volume [ Pending], Neutrophils (%) (Auto) [Pending], Lymphocytes (%) (Auto) [Pending], Monocytes (%) (Auto) [Pending], Eosinophils (%) (Auto) [Pending], Basophils (%) (Auto) [Pending], Sodium Level [Pending], Potassium Level [Pending], Chloride Level [Pending], Carbon Dioxide Level [Pending], Blood Urea Nitrogen [Pending], Creatinine [Pending], Estimat Glomerular Filtration Rate [Pending], Glucose Level [Pending], Calcium Level [Pending], Phosphorus Level [Pending], Total Bilirubin [Pending], Aspartate Amino Transf (AST/SGOT) [Pending], Alanine Aminotransferase (ALT/SGPT) [Pending], Alkaline Phosphatase [Pending], Total Protein [Pending], Albumin [Pending], Globulin [Pending] Height (Feet): 5 Height (Inches): 8.00 Weight (Pounds): 159 Objective IRR/Irr/ Lungs B jaycob Abd SNT. BS ++. PEG OK. E No Edema. + clubbing. Freddy Sandoval MD Jan 20, 2018 09:00
[2018-01-20 09:21] LABS: ALANINE AMINOTRANSFERASE 22 U/L (12-78); ALBUMIN 2.4 G/DL (3.4-5.0); ALBUMIN/GLOBULIN RATIO 0.6 (1.0-2.7); ALKALINE PHOSPHATASE 127 U/L (46-116); ANION GAP 8 mmol/L (5-15); ASPARTATE AMINO TRANSFERASE 40 U/L (15-37); BILIRUBIN,TOTAL 0.4 MG/DL (0.2-1.0); BLOOD UREA NITROGEN 34 mg/dL (7-18); CALCIUM 8.3 MG/DL (8.5-10.1); CARBON DIOXIDE 28 MMOL/L (21-32); CHLORIDE 102 MMOL/L (98-107); CREATININE 4.8 MG/DL (0.55-1.30); PHOSPHORUS 2.2 MG/DL (2.5-4.9); POTASSIUM 2.8 MMOL/L (3.5-5.1); SODIUM 138 MMOL/L (136-145)
[2018-01-20] MEDS ORDERED: NS 275ml ONE (09:37)
[2018-01-20] MEDS ORDERED: Tubing IV Secondary IV ONE (09:37)
--- NOTE | 2018-01-20 11:06 | Critical Care Progress Note ---
Assessment/Plan Assessment/Plan PROBLEM LIST: 1. Hemoptysis likely secondary to lung cancer 2. Stage IV lung adenocarcinoma 3. Chronic obstructive pulmonary disease. 4. Recent pneumonia. 5. Urinary tract infection. 6. Congestive heart failure with ischemic cardiomyopathy. 7. Atrial fibrillation and supraventricular tachycardia. 8. Hypertension. 9. Hyperlipidemia. 10. Benign prostatic hypertrophy. 11. 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 Dysphagia, status post gastrostomy tube. 13. Acute on chronic anemia. 14. End-stage renal disease, on dialysis PLAN respiratory care without change monitor airway and provide care monitor for hemoptysis and comment oxygen as needed off anticoagulants at present close follow up patient remains ill and critical close monitoring for change and deterioration medications/laboratory data/nursing notes reviewed in detail note reviewed and edited care discussed with RN and RT Critical Care - Subjective Condition: unchanged Residuals: minimal Tube Feeding Tolerated: yes I&O: Intake and Output 01/19/18 01/20/18 19:00 07:00 Intake Total 700 ml Output Total 60 ml Balance 640 ml Free Water 100 ml Tube Feeding 600 ml Emesis 60 ml # Voids 3 1 # Bowel Movements 4 5 Critical Care - Objective Last 24 Hour Vital Signs Date Time Temp Pulse Resp B/P (MAP) Pulse Ox O2 Delivery O2 Flow Rate FiO2 01/20/18 09:00 Room Air 01/20/18 08:00 87 01/20/18 08:00 97.2 94 19 125/53 (77) 97 97.2 01/20/18 06:00 82 112/51 01/20/18 04:00 98.6 81 20 131/43 (72) 97 98.6 01/20/18 04:00 77 01/20/18 03:40 Room Air 01/20/18 00:40 Room Air 01/20/18 00:00 74 01/20/18 00:00 98.7 76 20 144/51 (82) 97 98.7 01/19/18 21:08 80 144/59 01/19/18 21:07 80 01/19/18 21:00 Room Air 01/19/18 20:00 80 01/19/18 20:00 98.6 81 18 144/59 (87) 96 98.6 01/19/18 18:32 97 Nasal Cannula 01/19/18 18:32 Room Air 01/19/18 16:00 97.8 88 20 138/58 (84) 96 97.8 01/19/18 16:00 72 01/19/18 13:23 88 127/52 01/19/18 12:00 81 01/19/18 12:00 97.7 91 20 127/52 (77) 96 97.7 Labs: Labs Test 01/20/18 07:20 White Blood Count 15.1 K/UL (4.8-10.8) Red Blood Count 2.63 M/UL (4.70-6.10) Hemoglobin 7.7 G/DL (14.2-18.0) Hematocrit 23.9 % (42.0-52.0) Mean Corpuscular Volume 91 FL (80-99) Mean Corpuscular Hemoglobin 29.5 PG (27.0-31.0) Mean Corpuscular Hemoglobin Concent 32.3 G/DL (32.0-36.0) Red Cell Distribution Width 16.5 % (11.6-14.8) Platelet Count 249 K/UL (150-450) Mean Platelet Volume 6.2 FL (6.5-10.1) Neutrophils (%) (Auto) % (45.0-75.0) Lymphocytes (%) (Auto) % (20.0-45.0) Monocytes (%) (Auto) % (1.0-10.0) Eosinophils (%) (Auto) % (0.0-3.0) Basophils (%) (Auto) % (0.0-2.0) Sodium Level 138 MMOL/L (136-145) Potassium Level 2.8 MMOL/L (3.5-5.1) Chloride Level 102 MMOL/L (98-107) Carbon Dioxide Level 28 MMOL/L (21-32) Anion Gap 8 mmol/L (5-15) Blood Urea Nitrogen 34 mg/dL (7-18) Creatinine 4.8 MG/DL (0.55-1.30) Estimat Glomerular Filtration Rate mL/min (>60) Glucose Level 76 MG/DL (74-106) Calcium Level 8.3 MG/DL (8.5-10.1) Phosphorus Level 2.2 MG/DL (2.5-4.9) Total Bilirubin 0.4 MG/DL (0.2-1.0) Aspartate Amino Transf (AST/SGOT) 40 U/L (15-37) Alanine Aminotransferase (ALT/SGPT) 22 U/L (12-78) Alkaline Phosphatase 127 U/L (46-116) Total Protein 6.7 G/DL (6.4-8.2) Albumin 2.4 G/DL (3.4-5.0) Globulin 4.3 g/dL Albumin/Globulin Ratio 0.6 (1.0-2.7) Objective: Sp02 EP Interpretation: reviewed, normal General Appearance: no apparent distress Head: normocephalic, atraumatic Eyes: bilateral eye normal inspection Neck: normal inspection, carotid 2+ Respiratory: decreased breath sounds, minimal rhonchi and no wheeze Cardiovascular #1: regular rate, rhythm, no murmur without MRG Gastrointestinal: non tender, soft, non-distended, no guarding, no rebound, feeding tube Genitourinary: no CVA tenderness Musculoskeletal: no CC Neurologic: weak Ron Vaughn MD Jan 20, 2018 11:06
--- NOTE | 2018-01-20 14:38 | General Progress Note ---
Assessment/Plan Status: stable, not improved Assessment/Plan # Stage IV adenocarcinoma of the lung, very poor prognosis, seen by Pulmonary for further monitoring pulm status and may need intubation thought would advise against this given terminal prognosis. 01/[address] scan: 1. Findings strongly suggesting metastatic disease in the lungs, dominant left lower lobe lung mass with numerous additional pulmonary nodules. 2. Recommend further evaluation with appropriate screening studies, and consider PET/CT versus percutaneous lung mass CT guided core biopsy. 3. Likely neoplastic anterior right shoulder mass, considerations include metastases versus soft tissue sarcoma. This is amenable to image guided percutaneous core needle biopsy. --> hemoptysis continues at this time, seen by pulm, potentially candidate for ddavp --> reviewed [place] records. The patient again most recently seen on 01/11, has not received any chemotherapy. Prognosis remains poor. We will continue to closely monitor. LESS likely would consider aggressive treatment. The patient also requires a PET scan. Pathology again reviewed from 12/28/2017. No major changes noted in pathology report. --> The patient does not have immunophenotypic staining. He will NOT benefit from immunotherapy. --> again prognosis for him is very poor # Anemia due to underlying chronic disease. also due to hemoptysis --> Continue to closely monitor. --> Anemia workup has been reviewed, will trend daily. --> Continue the patient on Procrit 4000 units subcutaneous. --> 01/14 s/p blood tx, tolerated well. # Dysphagia, status post PEG. # Atrial flutter, status post ablation. # Congestive heart failure. # Peripheral vascular disease, status post angioplasty. THE TIME THE NOTE WAS ENTERED DOES NOT NECESSARILY CORRESPOND THE TIME THE PATIENT WAS SEEN. Subjective Date patient seen: Jan 20, 2018 Hematologic/Lymphatic: Reports: anemia Allergies: Coded Allergies: LORAZEPAM (Verified Allergy, Unknown, 01/12/18) All Systems: reviewed and negative except above Subjective Hemoptysis continues ++. Vitals are stable. HD performed today, tolerated well. DC planning. Objective Last 24 Hour Vital Signs Date Time Temp Pulse Resp B/P (MAP) Pulse Ox O2 Delivery O2 Flow Rate FiO2 01/20/18 12:56 96 107/41 01/20/18 11:51 97.7 96 20 107/41 (63) 97 97.7 01/20/18 09:00 Room Air 01/20/18 08:00 87 01/20/18 08:00 97.2 94 19 125/53 (77) 97 97.2 01/20/18 06:00 82 112/51 01/20/18 04:00 98.6 81 20 131/43 (72) 97 98.6 01/20/18 04:00 77 01/20/18 03:40 Room Air 01/20/18 00:40 Room Air 01/20/18 00:00 74 01/20/18 00:00 98.7 76 20 144/51 (82) 97 98.7 01/19/18 21:08 80 144/59 01/19/18 21:07 80 01/19/18 21:00 Room Air 01/19/18 20:00 80 01/19/18 20:00 98.6 81 18 144/59 (87) 96 98.6 01/19/18 18:32 97 Nasal Cannula 01/19/18 18:32 Room Air 01/19/18 16:00 97.8 88 20 138/58 (84) 96 97.8 01/19/18 16:00 72 Intake and Output 01/19/18 01/20/18 19:00 07:00 Intake Total 700 ml Output Total 60 ml Balance 640 ml Free Water 100 ml Tube Feeding 600 ml Emesis 60 ml # Voids 3 1 # Bowel Movements 4 5 Laboratory Tests 01/20/18 07:20: White Blood Count 15.1H, Red Blood Count 2.63L, Hemoglobin 7.7L, Hematocrit 23.9L, Mean Corpuscular Volume 91, Mean Corpuscular Hemoglobin 29.5, Mean Corpuscular Hemoglobin Concent 32.3, Red Cell Distribution Width 16.5H, Platelet Count 249, Mean Platelet Volume 6.2L, Neutrophils (%) (Auto) , Lymphocytes (%) (Auto) , Monocytes (%) (Auto) , Eosinophils (%) (Auto) , Basophils (%) (Auto) , Differential Total Cells Counted 100, Neutrophils % ( Manual) 81H, Lymphocytes % (Manual) 5L, Monocytes % (Manual) 11H, Eosinophils % (Manual) 3, Basophils % (Manual) 0, Band Neutrophils 0, Platelet Estimate Adequate, Platelet Morphology Normal, Hypochromasia 3+, Anisocytosis 1+, Spherocytes 1+, Sodium Level 138, Potassium Level 2.8L, Chloride Level 102, Carbon Dioxide Level 28, Anion Gap 8, Blood Urea Nitrogen 34H, Creatinine 4.8H, Estimat Glomerular Filtration Rate , Glucose Level 76, Calcium Level 8.3L, Phosphorus Level 2.2L, Total Bilirubin 0.4, Aspartate Amino Transf (AST/SGOT) 40H, Alanine Aminotransferase (ALT/SGPT) 22, Alkaline Phosphatase 127H, Total Protein 6.7, Albumin 2.4L, Globulin 4.3, Albumin/Globulin Ratio 0.6L Height (Feet): 5 Height (Inches): 8.00 Weight (Pounds): 159 General Appearance: no apparent distress, alert EENT: PERRL/EOMI Neck: normal alignment Cardiovascular: normal peripheral pulses Respiratory/Chest: normal breath sounds, no respiratory distress Abdomen: soft Objective left toe gangrene Jm Gooden MD Jan 20, 2018 14:38
--- NOTE | 2018-01-20 15:09 | Cardiac Electrophysiology PN ---
Assessment/Plan Assessment/Plan 1. Troponin elevation due to renal failure. Denies chest pain. Has left bundle-branch block.In SR 2. [place] [address]. On hemodialysis. 3. Hypokalemia, Replaced 4. Severe peripheral vascular disease. Status post intervention. 5. End-stage renal disease, on hemodialysis. 6. Metastatic stage IV lung cancer. 7. AMS. Back to baseline. Head CT showed no mets DW RN DC tele Subjective Subjective In SR with first degree AVB. No events overnight Objective Last 24 Hour Vital Signs Date Time Temp Pulse Resp B/P (MAP) Pulse Ox O2 Delivery O2 Flow Rate FiO2 01/20/18 12:56 96 107/41 01/20/18 11:51 97.7 96 20 107/41 (63) 97 97.7 01/20/18 09:00 Room Air 01/20/18 08:00 87 01/20/18 08:00 97.2 94 19 125/53 (77) 97 97.2 01/20/18 06:00 82 112/51 01/20/18 04:00 98.6 81 20 131/43 (72) 97 98.6 01/20/18 04:00 77 01/20/18 03:40 Room Air 01/20/18 00:40 Room Air 01/20/18 00:00 74 01/20/18 00:00 98.7 76 20 144/51 (82) 97 98.7 01/19/18 21:08 80 144/59 01/19/18 21:07 80 01/19/18 21:00 Room Air 01/19/18 20:00 80 01/19/18 20:00 98.6 81 18 144/59 (87) 96 98.6 01/19/18 18:32 97 Nasal Cannula 01/19/18 18:32 Room Air 01/19/18 16:00 97.8 88 20 138/58 (84) 96 97.8 01/19/18 16:00 72 Intake and Output 01/19/18 01/20/18 19:00 07:00 Intake Total 700 ml Output Total 60 ml Balance 640 ml Free Water 100 ml Tube Feeding 600 ml Emesis 60 ml # Voids 3 1 # Bowel Movements 4 5 Laboratory Tests Test 01/20/18 07:20 White Blood Count 15.1 K/UL (4.8-10.8) H Red Blood Count 2.63 M/UL (4.70-6.10) L Hemoglobin 7.7 G/DL (14.2-18.0) L Hematocrit 23.9 % (42.0-52.0) L Mean Corpuscular Volume 91 FL (80-99) Mean Corpuscular Hemoglobin 29.5 PG (27.0-31.0) Mean Corpuscular Hemoglobin Concent 32.3 G/DL (32.0-36.0) Red Cell Distribution Width 16.5 % (11.6-14.8) H Platelet Count 249 K/UL (150-450) Mean Platelet Volume 6.2 FL (6.5-10.1) L Neutrophils (%) (Auto) % (45.0-75.0) Lymphocytes (%) (Auto) % (20.0-45.0) Monocytes (%) (Auto) % (1.0-10.0) Eosinophils (%) (Auto) % (0.0-3.0) Basophils (%) (Auto) % (0.0-2.0) Differential Total Cells Counted 100 Neutrophils % (Manual) 81 % (45-75) H Lymphocytes % (Manual) 5 % (20-45) L Monocytes % (Manual) 11 % (1-10) H Eosinophils % (Manual) 3 % (0-3) Basophils % (Manual) 0 % (0-2) Band Neutrophils 0 % (0-8) Platelet Estimate Adequate Platelet Morphology Normal Hypochromasia 3+ Anisocytosis 1+ Spherocytes 1+ Sodium Level 138 MMOL/L (136-145) Potassium Level 2.8 MMOL/L (3.5-5.1) L Chloride Level 102 MMOL/L (98-107) Carbon Dioxide Level 28 MMOL/L (21-32) Anion Gap 8 mmol/L (5-15) Blood Urea Nitrogen 34 mg/dL (7-18) H Creatinine 4.8 MG/DL (0.55-1.30) H Estimat Glomerular Filtration Rate mL/min (>60) Glucose Level 76 MG/DL (74-106) Calcium Level 8.3 MG/DL (8.5-10.1) L Phosphorus Level 2.2 MG/DL (2.5-4.9) L Total Bilirubin 0.4 MG/DL (0.2-1.0) Aspartate Amino Transf (AST/SGOT) 40 U/L (15-37) H Alanine Aminotransferase (ALT/SGPT) 22 U/L (12-78) Alkaline Phosphatase 127 U/L (46-116) H Total Protein 6.7 G/DL (6.4-8.2) Albumin 2.4 G/DL (3.4-5.0) L Globulin 4.3 g/dL Albumin/Globulin Ratio 0.6 (1.0-2.7) L Objective HEAD AND SHOWS: No JVD. LUNGS: Coarse rhonchi. CARDIOVASCULAR: Regular S1 and S2 with no gallop or murmur. ABDOMEN: Soft, status post G-tube. EXTREMITIES: No edema. Keshav Spear MD Jan 20, 2018 15:09
--- NOTE | 2018-01-20 23:20 | General Progress Note ---
Assessment/Plan Assessment/Plan schizophrenia encephalopathy -cont current -ativan prn Subjective Neurologic/Psychiatric: Reports: anxiety, depressed, emotional problems Allergies: Coded Allergies: LORAZEPAM (Verified Allergy, Unknown, 01/12/18) Subjective The pt is calmer and asleep Objective Last 24 Hour Vital Signs Date Time Temp Pulse Resp B/P (MAP) Pulse Ox O2 Delivery O2 Flow Rate FiO2 01/20/18 20:53 114/77 (89) 01/20/18 20:45 86 113/40 01/20/18 20:00 99.1 86 20 113/40 (64) 97 99.1 01/20/18 19:37 69/36 (47) 01/20/18 16:07 98.4 97 19 121/46 (71) 97 98.4 01/20/18 16:00 99 01/20/18 12:56 96 107/41 01/20/18 12:00 60 01/20/18 11:51 97.7 96 20 107/41 (63) 97 97.7 01/20/18 09:00 Room Air 01/20/18 08:00 87 01/20/18 08:00 97.2 94 19 125/53 (77) 97 97.2 01/20/18 06:00 82 112/51 01/20/18 04:00 98.6 81 20 131/43 (72) 97 98.6 01/20/18 04:00 77 01/20/18 03:40 Room Air 01/20/18 00:40 Room Air 01/20/18 00:00 74 01/20/18 00:00 98.7 76 20 144/51 (82) 97 98.7 Intake and Output 01/19/18 01/20/18 19:00 07:00 Intake Total 700 ml Output Total 60 ml Balance 640 ml Free Water 100 ml Tube Feeding 600 ml Emesis 60 ml # Voids 3 1 # Bowel Movements 4 5 Laboratory Tests 01/20/18 07:20: White Blood Count 15.1H, Red Blood Count 2.63L, Hemoglobin 7.7L, Hematocrit 23.9L, Mean Corpuscular Volume 91, Mean Corpuscular Hemoglobin 29.5, Mean Corpuscular Hemoglobin Concent 32.3, Red Cell Distribution Width 16.5H, Platelet Count 249, Mean Platelet Volume 6.2L, Neutrophils (%) (Auto) , Lymphocytes (%) (Auto) , Monocytes (%) (Auto) , Eosinophils (%) (Auto) , Basophils (%) (Auto) , Differential Total Cells Counted 100, Neutrophils % ( Manual) 81H, Lymphocytes % (Manual) 5L, Monocytes % (Manual) 11H, Eosinophils % (Manual) 3, Basophils % (Manual) 0, Band Neutrophils 0, Platelet Estimate Adequate, Platelet Morphology Normal, Hypochromasia 3+, Anisocytosis 1+, Spherocytes 1+, Sodium Level 138, Potassium Level 2.8L, Chloride Level 102, Carbon Dioxide Level 28, Anion Gap 8, Blood Urea Nitrogen 34H, Creatinine 4.8H, Estimat Glomerular Filtration Rate , Glucose Level 76, Calcium Level 8.3L, Phosphorus Level 2.2L, Total Bilirubin 0.4, Aspartate Amino Transf (AST/SGOT) 40H, Alanine Aminotransferase (ALT/SGPT) 22, Alkaline Phosphatase 127H, Total Protein 6.7, Albumin 2.4L, Globulin 4.3, Albumin/Globulin Ratio 0.6L Height (Feet): 5 Height (Inches): 8.00 Weight (Pounds): 159 Annemarie Roberts MD Jan 20, 2018 23:20
[2018-01-21] VITALS: BP 92/42
[2018-01-21] MEDS: Piperacillin/Tazobactam 2.25 GM in NS 55 ML IV SCH ×3 (00:24→16:43)
[2018-01-21 04:00] VITALS: BP 109/39
[2018-01-21] MEDS: dilTIAZem HCl 60mg tab GT SCH ×3 (05:51→22:00)
[2018-01-21 08:00] VITALS: BP 114/46
[2018-01-21] MEDS: Sensipar 30mg Tab GT SCH (09:01)
[2018-01-21] MEDS: Amiodarone 200mg tab GT SCH (09:01)
--- NOTE | 2018-01-21 10:49 | Critical Care Progress Note ---
Assessment/Plan Assessment/Plan PROBLEM LIST: 1. Hemoptysis likely secondary to lung cancer 2. Stage IV lung adenocarcinoma 3. Chronic obstructive pulmonary disease. 4. Recent pneumonia. 5. Urinary tract infection. 6. Congestive heart failure with ischemic cardiomyopathy. 7. Atrial fibrillation and supraventricular tachycardia. 8. Hypertension. 9. Hyperlipidemia. 10. Benign prostatic hypertrophy. 11. 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 Dysphagia, status post gastrostomy tube. 13. Acute on chronic anemia. 14. End-stage renal disease, on dialysis PLAN respiratory care without change monitor airway and provide care monitor for hemoptysis and comment oxygen as needed off anticoagulants at present close follow up patient remains ill and critical close monitoring for change and deterioration medications/laboratory data/nursing notes reviewed in detail note reviewed and edited care discussed with RN and RT Critical Care - Subjective Condition: unchanged EKG Rhythm: Sinus Rhythm I&O: Intake and Output 01/20/18 01/21/18 19:00 07:00 Intake Total 700 ml 615 ml Output Total 60 ml 40 ml Balance 640 ml 575 ml Free Water 160 ml IV Total 55 ml Tube Feeding 600 ml 400 ml Other 100 ml Emesis 60 ml 40 ml # Bowel Movements 5 3 Critical Care - Objective Last 24 Hour Vital Signs Date Time Temp Pulse Resp B/P (MAP) Pulse Ox O2 Delivery O2 Flow Rate FiO2 01/21/18 09:00 Room Air 01/21/18 08:00 99.3 96 114/46 (68) 99.3 01/21/18 05:51 100 109/39 01/21/18 04:00 102 01/21/18 04:00 99.0 100 16 109/39 (62) 97 99.0 01/21/18 00:00 95 01/21/18 00:00 99.0 99 16 92/42 (59) 95 99.0 01/21/18 00:00 95 01/20/18 21:00 Room Air 01/20/18 20:53 114/77 (89) 01/20/18 20:45 86 113/40 01/20/18 20:00 99.1 86 20 113/40 (64) 97 99.1 01/20/18 20:00 95 01/20/18 19:37 69/36 (47) 01/20/18 16:07 98.4 97 19 121/46 (71) 97 98.4 01/20/18 16:00 99 01/20/18 12:56 96 107/41 01/20/18 12:00 60 01/20/18 11:51 97.7 96 20 107/41 (63) 97 97.7 Labs: Labs Test 01/20/18 07:20 White Blood Count 15.1 K/UL (4.8-10.8) Red Blood Count 2.63 M/UL (4.70-6.10) Hemoglobin 7.7 G/DL (14.2-18.0) Hematocrit 23.9 % (42.0-52.0) Mean Corpuscular Volume 91 FL (80-99) Mean Corpuscular Hemoglobin 29.5 PG (27.0-31.0) Mean Corpuscular Hemoglobin Concent 32.3 G/DL (32.0-36.0) Red Cell Distribution Width 16.5 % (11.6-14.8) Platelet Count 249 K/UL (150-450) Mean Platelet Volume 6.2 FL (6.5-10.1) Neutrophils (%) (Auto) % (45.0-75.0) Lymphocytes (%) (Auto) % (20.0-45.0) Monocytes (%) (Auto) % (1.0-10.0) Eosinophils (%) (Auto) % (0.0-3.0) Basophils (%) (Auto) % (0.0-2.0) Differential Total Cells Counted 100 Neutrophils % (Manual) 81 % (45-75) Lymphocytes % (Manual) 5 % (20-45) Monocytes % (Manual) 11 % (1-10) Eosinophils % (Manual) 3 % (0-3) Basophils % (Manual) 0 % (0-2) Band Neutrophils 0 % (0-8) Platelet Estimate Adequate Platelet Morphology Normal Hypochromasia 3+ Anisocytosis 1+ Spherocytes 1+ Sodium Level 138 MMOL/L (136-145) Potassium Level 2.8 MMOL/L (3.5-5.1) Chloride Level 102 MMOL/L (98-107) Carbon Dioxide Level 28 MMOL/L (21-32) Anion Gap 8 mmol/L (5-15) Blood Urea Nitrogen 34 mg/dL (7-18) Creatinine 4.8 MG/DL (0.55-1.30) Estimat Glomerular Filtration Rate mL/min (>60) Glucose Level 76 MG/DL (74-106) Calcium Level 8.3 MG/DL (8.5-10.1) Phosphorus Level 2.2 MG/DL (2.5-4.9) Total Bilirubin 0.4 MG/DL (0.2-1.0) Aspartate Amino Transf (AST/SGOT) 40 U/L (15-37) Alanine Aminotransferase (ALT/SGPT) 22 U/L (12-78) Alkaline Phosphatase 127 U/L (46-116) Total Protein 6.7 G/DL (6.4-8.2) Albumin 2.4 G/DL (3.4-5.0) Globulin 4.3 g/dL Albumin/Globulin Ratio 0.6 (1.0-2.7) Objective: Sp02 EP Interpretation: reviewed, normal General Appearance: no apparent distress Head: normocephalic, atraumatic Eyes: bilateral eye normal inspection Neck: normal inspection, carotid 2+ Respiratory: decreased breath sounds, minimal rhonchi and no wheeze Cardiovascular #1: regular rate, rhythm, no murmur without MRG Gastrointestinal: non tender, soft, non-distended, no guarding, no rebound, feeding tube Genitourinary: no CVA tenderness Musculoskeletal: no CC Neurologic: weak Ron Vaughn MD Jan 21, 2018 10:49
--- NOTE | 2018-01-21 10:54 | General Progress Note ---
Assessment/Plan Status: not improved, unchanged Assessment/Plan # Stage IV adenocarcinoma of the lung, very poor prognosis, seen by Pulmonary for further monitoring pulm status and may need intubation thought would advise against this given terminal prognosis. 01/[address] scan: 1. Findings strongly suggesting metastatic disease in the lungs, dominant left lower lobe lung mass with numerous additional pulmonary nodules. 2. Recommend further evaluation with appropriate screening studies, and consider PET/CT versus percutaneous lung mass CT guided core biopsy. 3. Likely neoplastic anterior right shoulder mass, considerations include metastases versus soft tissue sarcoma. This is amenable to image guided percutaneous core needle biopsy. --> hemoptysis continues at this time, seen by pulm, potentially candidate for ddavp --> reviewed [facility] records. The patient again most recently seen on 01/11, has not received any chemotherapy. Prognosis remains poor. We will continue to closely monitor. LESS likely would consider aggressive treatment. The patient also requires a PET scan. Pathology again reviewed from 12/28/2017. No major changes noted in pathology report. --> The patient does not have immunophenotypic staining. He will NOT benefit from immunotherapy. --> again prognosis for him is very poor # Anemia due to underlying chronic disease. also due to hemoptysis --> Continue to closely monitor. --> Anemia workup has been reviewed, will trend daily. --> Continue the patient on Procrit 4000 units subcutaneous. --> 01/14 s/p blood tx, tolerated well. # Dysphagia, status post PEG. # Atrial flutter, status post ablation. # Congestive heart failure. # Peripheral vascular disease, status post angioplasty. THE TIME THE NOTE WAS ENTERED DOES NOT NECESSARILY CORRESPOND THE TIME THE PATIENT WAS SEEN. Subjective Date patient seen: Jan 21, 2018 Hematologic/Lymphatic: Reports: anemia Allergies: Coded Allergies: LORAZEPAM (Verified Allergy, Unknown, 01/12/18) All Systems: reviewed and negative except above Subjective Hemoptysis continues ++. BP is stable. Pt awaiting placement. Objective Last 24 Hour Vital Signs Date Time Temp Pulse Resp B/P (MAP) Pulse Ox O2 Delivery O2 Flow Rate FiO2 01/21/18 09:00 Room Air 01/21/18 08:00 99.3 96 114/46 (68) 99.3 01/21/18 05:51 100 109/39 01/21/18 04:00 102 01/21/18 04:00 99.0 100 16 109/39 (62) 97 99.0 01/21/18 00:00 95 01/21/18 00:00 99.0 99 16 92/42 (59) 95 99.0 01/21/18 00:00 95 01/20/18 21:00 Room Air 01/20/18 20:53 114/77 (89) 01/20/18 20:45 86 113/40 01/20/18 20:00 99.1 86 20 113/40 (64) 97 99.1 01/20/18 20:00 95 01/20/18 19:37 69/36 (47) 01/20/18 16:07 98.4 97 19 121/46 (71) 97 98.4 01/20/18 16:00 99 01/20/18 12:56 96 107/41 01/20/18 12:00 60 01/20/18 11:51 97.7 96 20 107/41 (63) 97 97.7 Intake and Output 01/20/18 01/21/18 19:00 07:00 Intake Total 700 ml 615 ml Output Total 60 ml 40 ml Balance 640 ml 575 ml Free Water 160 ml IV Total 55 ml Tube Feeding 600 ml 400 ml Other 100 ml Emesis 60 ml 40 ml # Bowel Movements 5 3 Height (Feet): 5 Height (Inches): 8.00 Weight (Pounds): 158 General Appearance: alert EENT: PERRL/EOMI Neck: normal alignment Cardiovascular: tachycardia Respiratory/Chest: decreased breath sounds Objective left toe gangrene Jm Gooden MD Jan 21, 2018 10:54
[2018-01-21] MEDS ORDERED: Sterile Water Irrig 1000ml IRRIG ONE (11:10)
--- NOTE | 2018-01-21 11:27 | Nephrology Progress Note ---
Assessment/Plan Plan Gross hemoptysis intermittently. Providing frequent HD to reduce uremic component. Transfuse PRN. ESRD - HD TTS Spoke to pt's daughter Liz. She agrees to go back to SNF. Now the SNF refusing to take patient back Called SNF. DW Nursing Direct Customer Service Representative that they must take the patient back or be considered as dumping the patient.. Subjective Subjective Confused. In LUANA. Rare hemoptysis!! Objective Objective Last 24 Hour Vital Signs Date Time Temp Pulse Resp B/P (MAP) Pulse Ox O2 Delivery O2 Flow Rate FiO2 01/21/18 09:00 Room Air 01/21/18 08:00 99.3 96 114/46 (68) 99.3 01/21/18 08:00 97 01/21/18 05:51 100 109/39 01/21/18 04:00 102 01/21/18 04:00 99.0 100 16 109/39 (62) 97 99.0 01/21/18 00:00 95 01/21/18 00:00 99.0 99 16 92/42 (59) 95 99.0 01/21/18 00:00 95 01/20/18 21:00 Room Air 01/20/18 20:53 114/77 (89) 01/20/18 20:45 86 113/40 01/20/18 20:00 99.1 86 20 113/40 (64) 97 99.1 01/20/18 20:00 95 01/20/18 19:37 69/36 (47) 01/20/18 16:07 98.4 97 19 121/46 (71) 97 98.4 01/20/18 16:00 99 01/20/18 12:56 96 107/41 01/20/18 12:00 60 01/20/18 11:51 97.7 96 20 107/41 (63) 97 97.7 Intake and Output 01/20/18 01/21/18 19:00 07:00 Intake Total 700 ml 615 ml Output Total 60 ml 40 ml Balance 640 ml 575 ml Free Water 160 ml IV Total 55 ml Tube Feeding 600 ml 400 ml Other 100 ml Emesis 60 ml 40 ml # Bowel Movements 5 3 Height (Feet): 5 Height (Inches): 8.00 Weight (Pounds): 158 Objective IRR/Irr/ Lungs B ronchi Abd SNT. BS ++. PEG OK. E No Edema. + clubbing. Freddy Sandoval MD Jan 21, 2018 11:27
[2018-01-21] MEDS ORDERED: Acetaminophen 650mg/20.3ml GT PRN (11:30)
[2018-01-21 12:00] VITALS: BP 105/43
--- NOTE | 2018-01-21 14:11 | Cardiac Electrophysiology PN ---
Assessment/Plan Assessment/Plan 1. Troponin elevation due to renal failure. Denies chest pain. Has left bundle-branch block.In SR 2. [place] [address]. On hemodialysis. 3. Hypotension. Improving. Decrease Cardizem to 30 tid 4. Atrial fib with RVR On amiodarone, Dig and decrease Cardizem to 30 tid 5. End-stage renal disease, on hemodialysis. 6. Metastatic stage IV lung cancer. 7. AMS. Back to baseline. Head CT showed no mets 8. Hypokalemia, Replaced 9. Severe peripheral vascular disease. Status post intervention. DW RN Subjective Subjective BP went as low as 69/28 but improved with positioning. No events overnight Objective Last 24 Hour Vital Signs Date Time Temp Pulse Resp B/P (MAP) Pulse Ox O2 Delivery O2 Flow Rate FiO2 01/21/18 12:00 99.0 97 20 105/43 (63) 100 99.0 01/21/18 09:00 Room Air 01/21/18 08:00 99.3 96 114/46 (68) 99.3 01/21/18 08:00 97 01/21/18 05:51 100 109/39 01/21/18 04:00 102 01/21/18 04:00 99.0 100 16 109/39 (62) 97 99.0 01/21/18 00:00 95 01/21/18 00:00 99.0 99 16 92/42 (59) 95 99.0 01/21/18 00:00 95 01/20/18 21:00 Room Air 01/20/18 20:53 114/77 (89) 01/20/18 20:45 86 113/40 01/20/18 20:00 99.1 86 20 113/40 (64) 97 99.1 01/20/18 20:00 95 01/20/18 19:37 69/36 (47) 01/20/18 16:07 98.4 97 19 121/46 (71) 97 98.4 01/20/18 16:00 99 Intake and Output 01/20/18 01/21/18 19:00 07:00 Intake Total 700 ml 615 ml Output Total 60 ml 40 ml Balance 640 ml 575 ml Free Water 160 ml IV Total 55 ml Tube Feeding 600 ml 400 ml Other 100 ml Emesis 60 ml 40 ml # Bowel Movements 5 3 Objective HEAD AND SHOWS: No JVD. LUNGS: Coarse rhonchi. CARDIOVASCULAR: Regular S1 and S2 with no gallop or murmur. ABDOMEN: Soft, status post G-tube. EXTREMITIES: No edema. Keshav Spear MD Jan 21, 2018 14:11
[2018-01-21 16:00] VITALS: BP 116/49
[2018-01-21 20:00] VITALS: BP 103/50
[2018-01-21] MEDS: Digoxin 0.125mg tab GT SCH (21:11)
[2018-01-22] VITALS: BP 102/52
[2018-01-22] MEDS: Piperacillin/Tazobactam 2.25 GM in NS 55 ML IV SCH ×2 (00:17→09:35)
[2018-01-22 04:00] VITALS: BP 124/59
[2018-01-22] MEDS: dilTIAZem HCl 60mg tab GT SCH ×2 (05:29→13:07)
[2018-01-22 08:00] VITALS: BP 121/52
--- NOTE | 2018-01-22 08:30 | Critical Care Progress Note ---
Assessment/Plan Assessment/Plan PROBLEM LIST: 1. Hemoptysis likely secondary to lung cancer 2. Stage IV lung adenocarcinoma 3. Chronic obstructive pulmonary disease. 4. Recent pneumonia. 5. Urinary tract infection. 6. Congestive heart failure with ischemic cardiomyopathy. 7. Atrial fibrillation and supraventricular tachycardia. 8. Hypertension. 9. Hyperlipidemia. 10. Benign prostatic hypertrophy. 11. 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 Dysphagia, status post gastrostomy tube. 13. Acute on chronic anemia. 14. End-stage renal disease, on dialysis PLAN respiratory care as is monitor airway and provide care monitor for hemoptysis and comment oxygen as needed off anticoagulants at present close follow up patient remains ill and critical close monitoring for change and deterioration SNF dc soon recommend DNR medications/laboratory data/nursing notes reviewed in detail note reviewed and edited care discussed with RN and RT Critical Care - Subjective Condition: unchanged EKG Rhythm: Sinus Rhythm I&O: Intake and Output 01/21/18 01/22/18 19:00 07:00 Intake Total 890 ml 750 ml Balance 890 ml 750 ml Free Water 120 ml 300 ml IV Total 220 ml Tube Feeding 550 ml 450 ml # Bowel Movements 2 Critical Care - Objective Last 24 Hour Vital Signs Date Time Temp Pulse Resp B/P (MAP) Pulse Ox O2 Delivery O2 Flow Rate FiO2 01/22/18 05:29 90 124/59 01/22/18 04:00 90 01/22/18 04:00 98.8 91 20 124/59 (80) 100 98.8 01/22/18 00:00 98.9 86 20 102/52 (69) 94 98.9 01/22/18 00:00 87 01/21/18 22:00 84 103/50 01/21/18 21:11 84 01/21/18 21:00 Room Air 01/21/18 20:00 99.0 84 20 103/50 (67) 93 99.0 01/21/18 20:00 84 01/21/18 18:15 98.6 98.6 01/21/18 16:23 100.5 01/21/18 16:00 100.6 83 22 116/49 (71) 93 100.6 01/21/18 16:00 84 01/21/18 15:53 100.6 01/21/18 14:52 97 105/43 01/21/18 12:00 97 01/21/18 12:00 99.0 97 20 105/43 (63) 100 99.0 01/21/18 09:01 Room Air 01/21/18 09:00 Room Air Labs: Labs Test 01/20/18 07:20 White Blood Count 15.1 K/UL (4.8-10.8) Red Blood Count 2.63 M/UL (4.70-6.10) Hemoglobin 7.7 G/DL (14.2-18.0) Hematocrit 23.9 % (42.0-52.0) Mean Corpuscular Volume 91 FL (80-99) Mean Corpuscular Hemoglobin 29.5 PG (27.0-31.0) Mean Corpuscular Hemoglobin Concent 32.3 G/DL (32.0-36.0) Red Cell Distribution Width 16.5 % (11.6-14.8) Platelet Count 249 K/UL (150-450) Mean Platelet Volume 6.2 FL (6.5-10.1) Neutrophils (%) (Auto) % (45.0-75.0) Lymphocytes (%) (Auto) % (20.0-45.0) Monocytes (%) (Auto) % (1.0-10.0) Eosinophils (%) (Auto) % (0.0-3.0) Basophils (%) (Auto) % (0.0-2.0) Differential Total Cells Counted 100 Neutrophils % (Manual) 81 % (45-75) Lymphocytes % (Manual) 5 % (20-45) Monocytes % (Manual) 11 % (1-10) Eosinophils % (Manual) 3 % (0-3) Basophils % (Manual) 0 % (0-2) Band Neutrophils 0 % (0-8) Platelet Estimate Adequate Platelet Morphology Normal Hypochromasia 3+ Anisocytosis 1+ Spherocytes 1+ Sodium Level 138 MMOL/L (136-145) Potassium Level 2.8 MMOL/L (3.5-5.1) Chloride Level 102 MMOL/L (98-107) Carbon Dioxide Level 28 MMOL/L (21-32) Anion Gap 8 mmol/L (5-15) Blood Urea Nitrogen 34 mg/dL (7-18) Creatinine 4.8 MG/DL (0.55-1.30) Estimat Glomerular Filtration Rate mL/min (>60) Glucose Level 76 MG/DL (74-106) Calcium Level 8.3 MG/DL (8.5-10.1) Phosphorus Level 2.2 MG/DL (2.5-4.9) Total Bilirubin 0.4 MG/DL (0.2-1.0) Aspartate Amino Transf (AST/SGOT) 40 U/L (15-37) Alanine Aminotransferase (ALT/SGPT) 22 U/L (12-78) Alkaline Phosphatase 127 U/L (46-116) Total Protein 6.7 G/DL (6.4-8.2) Albumin 2.4 G/DL (3.4-5.0) Globulin 4.3 g/dL Albumin/Globulin Ratio 0.6 (1.0-2.7) Objective: Sp02 EP Interpretation: reviewed, normal General Appearance: no apparent distress Head: normocephalic, atraumatic Eyes: bilateral eye normal inspection Neck: normal inspection, carotid 2+ Respiratory: decreased breath sounds,no rhonchi and no wheeze Cardiovascular #1: regular rate, rhythm, no murmur without MRG Gastrointestinal: non tender, soft, non-distended, no guarding, no rebound, feeding tube Genitourinary: no CVA tenderness Musculoskeletal: no CC Neurologic: weak reviewed and edited Ron Vaughn MD Jan 22, 2018 08:30
[2018-01-22] MEDS: Amiodarone 200mg tab GT SCH (09:35)
[2018-01-22] MEDS: Sensipar 30mg Tab GT SCH (09:35)
[2018-01-22 12:00] VITALS: BP 123/69
--- NOTE | 2018-01-22 12:36 | General Progress Note ---
Assessment/Plan Status: not improved Assessment/Plan # Stage IV adenocarcinoma of the lung, very poor prognosis, seen by Pulmonary for further monitoring pulm status and may need intubation thought would advise against this given terminal prognosis. 01/[address] scan: 1. Findings strongly suggesting metastatic disease in the lungs, dominant left lower lobe lung mass with numerous additional pulmonary nodules. 2. Recommend further evaluation with appropriate screening studies, and consider PET/CT versus percutaneous lung mass CT guided core biopsy. 3. Likely neoplastic anterior right shoulder mass, considerations include metastases versus soft tissue sarcoma. This is amenable to image guided percutaneous core needle biopsy. --> hemoptysis continues at this time, seen by pulm, potentially candidate for ddavp --> reviewed [facility] records. The patient again most recently seen on 01/11, has not received any chemotherapy. Prognosis remains poor. We will continue to closely monitor. LESS likely would consider aggressive treatment. The patient also requires a PET scan. Pathology again reviewed from 12/28/2017. No major changes noted in pathology report. --> The patient does not have immunophenotypic staining. He will NOT benefit from immunotherapy. --> again prognosis for him is very poor # Anemia due to underlying chronic disease. also due to hemoptysis --> Continue to closely monitor. --> Anemia workup has been reviewed, will trend daily. --> Continue the patient on Procrit 4000 units subcutaneous. --> currently stable # Dysphagia, status post PEG. # Atrial flutter, status post ablation. # Congestive heart failure. # Peripheral vascular disease, status post angioplasty. THE TIME THE NOTE WAS ENTERED DOES NOT NECESSARILY CORRESPOND THE TIME THE PATIENT WAS SEEN. Subjective Date patient seen: Jan 22, 2018 Hematologic/Lymphatic: Reports: anemia Allergies: Coded Allergies: LORAZEPAM (Verified Allergy, Unknown, 01/12/18) All Systems: reviewed and negative except above Subjective No acute events. Daughter at bedside. DC planning. Objective Last 24 Hour Vital Signs Date Time Temp Pulse Resp B/P (MAP) Pulse Ox O2 Delivery O2 Flow Rate FiO2 01/22/18 08:00 82 01/22/18 08:00 99.5 85 20 121/52 (75) 99 99.5 01/22/18 07:58 94 Room Air 01/22/18 07:58 Room Air 01/22/18 05:29 90 124/59 01/22/18 04:00 90 01/22/18 04:00 98.8 91 20 124/59 (80) 100 98.8 01/22/18 00:00 98.9 86 20 102/52 (69) 94 98.9 01/22/18 00:00 87 01/21/18 22:00 84 103/50 01/21/18 21:11 84 01/21/18 21:00 Room Air 01/21/18 20:00 99.0 84 20 103/50 (67) 93 99.0 01/21/18 20:00 84 01/21/18 18:15 98.6 98.6 01/21/18 16:23 100.5 01/21/18 16:00 100.6 83 22 116/49 (71) 93 100.6 01/21/18 16:00 84 01/21/18 15:53 100.6 01/21/18 14:52 97 105/43 Intake and Output 01/21/18 01/22/18 19:00 07:00 Intake Total 890 ml 750 ml Balance 890 ml 750 ml Free Water 120 ml 300 ml IV Total 220 ml Tube Feeding 550 ml 450 ml # Bowel Movements 2 Height (Feet): 5 Height (Inches): 8.00 Weight (Pounds): 159 General Appearance: no apparent distress, alert EENT: PERRL/EOMI Neck: normal alignment Cardiovascular: normal peripheral pulses Respiratory/Chest: no respiratory distress Abdomen: normal bowel sounds, no mass Objective left toe gangrene Jm Gooden MD Jan 22, 2018 12:36
--- NOTE | 2018-01-22 14:02 | Nephrology Progress Note ---
Assessment/Plan Plan Gross hemoptysis intermittently. Providing frequent HD to reduce uremic component. Transfuse PRN. ESRD - HD TTS Spoke to pt's daughter Liz. She agrees to go back to SNF. Now the SNF refusing to take patient back Called SNF. DW Nursing Contact [employer] that they must take the patient back or be considered as dumping the patient.. SNF refusing to take pt. back!!! Subjective Subjective Confused. On HD now. Intermittently Hypotensive. In LUANA. Rare hemoptysis!! Objective Objective Last 24 Hour Vital Signs Date Time Temp Pulse Resp B/P (MAP) Pulse Ox O2 Delivery O2 Flow Rate FiO2 01/22/18 13:27 Room Air 01/22/18 13:07 89 123/69 01/22/18 10:00 Room Air 01/22/18 08:00 82 01/22/18 08:00 99.5 85 20 121/52 (75) 99 99.5 01/22/18 07:58 94 Room Air 01/22/18 07:58 Room Air 01/22/18 05:29 90 124/59 01/22/18 04:00 90 01/22/18 04:00 98.8 91 20 124/59 (80) 100 98.8 01/22/18 00:00 98.9 86 20 102/52 (69) 94 98.9 01/22/18 00:00 87 01/21/18 22:00 84 103/50 01/21/18 21:11 84 01/21/18 21:00 Room Air 01/21/18 20:00 99.0 84 20 103/50 (67) 93 99.0 01/21/18 20:00 84 01/21/18 18:15 98.6 98.6 01/21/18 16:23 100.5 01/21/18 16:00 100.6 83 22 116/49 (71) 93 100.6 01/21/18 16:00 84 01/21/18 15:53 100.6 01/21/18 14:52 97 105/43 Intake and Output 01/21/18 01/22/18 19:00 07:00 Intake Total 890 ml 750 ml Balance 890 ml 750 ml Free Water 120 ml 300 ml IV Total 220 ml Tube Feeding 550 ml 450 ml # Bowel Movements 2 Height (Feet): 5 Height (Inches): 8.00 Weight (Pounds): 159 Objective IRR/Irr/ Lungs B jaycob Rashid SNT. BS ++. PEG OK. E No Edema. + clubbing. Freddy Sandoval MD Jan 22, 2018 14:02
--- NOTE | 2018-01-22 14:14 | Cardiac Electrophysiology PN ---
Assessment/Plan Assessment/Plan 1. Troponin elevation due to renal failure. Denies chest pain. Has left bundle-branch block.In SR 2. [place] [address]. On hemodialysis. 3. Hypotension. Improved with Cardizem 30 tid 4. Atrial fib with RVR On amiodarone, Dig and Cardizem 30 tid 5. End-stage renal disease, on hemodialysis. 6. Metastatic stage IV lung cancer. 7. AMS. Back to baseline. Head CT showed no mets 8. Hypokalemia, Replaced 9. Severe peripheral vascular disease. Status post intervention. KANU RN Subjective Subjective Now on HD. No events. Objective Last 24 Hour Vital Signs Date Time Temp Pulse Resp B/P (MAP) Pulse Ox O2 Delivery O2 Flow Rate FiO2 01/22/18 13:27 Room Air 01/22/18 13:07 89 123/69 01/22/18 10:00 Room Air 01/22/18 08:00 82 01/22/18 08:00 99.5 85 20 121/52 (75) 99 99.5 01/22/18 07:58 94 Room Air 01/22/18 07:58 Room Air 01/22/18 05:29 90 124/59 01/22/18 04:00 90 01/22/18 04:00 98.8 91 20 124/59 (80) 100 98.8 01/22/18 00:00 98.9 86 20 102/52 (69) 94 98.9 01/22/18 00:00 87 01/21/18 22:00 84 103/50 01/21/18 21:11 84 01/21/18 21:00 Room Air 01/21/18 20:00 99.0 84 20 103/50 (67) 93 99.0 01/21/18 20:00 84 01/21/18 18:15 98.6 98.6 01/21/18 16:23 100.5 01/21/18 16:00 100.6 83 22 116/49 (71) 93 100.6 01/21/18 16:00 84 01/21/18 15:53 100.6 01/21/18 14:52 97 105/43 Intake and Output 01/21/18 01/22/18 19:00 07:00 Intake Total 890 ml 750 ml Balance 890 ml 750 ml Free Water 120 ml 300 ml IV Total 220 ml Tube Feeding 550 ml 450 ml # Bowel Movements 2 Objective HEAD AND SHOWS: No JVD. LUNGS: Coarse rhonchi. CARDIOVASCULAR: Regular S1 and S2 with no gallop or murmur. ABDOMEN: Soft, status post G-tube. EXTREMITIES: No edema. Keshav Spear MD Jan 22, 2018 14:14
[2018-01-22] MEDS ORDERED: CARDIZEM60 MG GT (14:19)
[2018-01-22] MEDS ORDERED: PACERONE200 MG GT (14:19)
[2018-01-22] MEDS ORDERED: SEROQUEL25 MG GT (14:19)
[2018-01-22] MEDS ORDERED: Acetaminophen GT (14:19)
[2018-01-22] MEDS ORDERED: SENSIPAR30 MG GT (14:19)
[2018-01-22] MEDS ORDERED: HALDOL INJECT5 MG/ML IM (14:19)
[2018-01-22] MEDS ORDERED: REGLAN10 MG ORAL (14:19)
[2018-01-22] MEDS ORDERED: Digoxin GT (14:19)
[2018-01-22] MEDS ORDERED: LIPITOR10 MG GT (14:19)
[2018-01-22 16:00] VITALS: BP 108/49
--- NOTE | 2018-01-23 15:51 | Discharge Summary ---
Discharge Summary Discharge Summary _ DATE OF ADMISSION: 01/12/2018 DATE OF DISCHARGE: 01/22/2018 REASON FOR ADMISSION: 87 years old male with past medical history significant for atrial fibrillation , end-stage renal disease, on hemodialysis, lung CA, ischemic cardiomyopathy, congestive heart failure, presented to emergency department for hemoptysis. Upon evaluation hemoglobin - 8.2 hematocrit -24.1 ;WBC 11.5 Potassium 3.0 Troponin elevated 0.172 EKG reveals sinus rhythm, no acute ischemic changes BUN 120 creatinine 8.9. Chest x-ray revealed left small pleural effusion with possible atelectasis, otherwise no acute disease. Pulmonary nodules noted. ECG revealed sinus rhythm, no acute ischemic changes. Patient admitted with diagnosis of lung cancer, hemoptysis, end-stage renal disease, on hemodialysis, anemia. CONSULTANTS: regulatory compliance director Dr. Spear pulmonary Dr. Vaughn grounds restoration specialist/oncologist Dr. Gooden psychiatrist [facility]: Patient admitted to telemetry floor. Top Trimmer closely followed. Supplemental oxygen provided as needed to keep pulse oximetry above 92%. Pulmonary toilet provided. No evidence of infection. Urine culture negative. CXR with no evidence of infection . Patient was kept off antibiotics. Home medications resumed excluding Plavix due to hemoptysis. According to pricing manager, hemoptysis was likely secondary to lung cancer. CT of the chest revealed numerous bilateral pulmonary nodules , strongly suggestive of metastatic disease in the lungs. Findings were strongly suggestive of metastatic disease in the lungs: dominant left lower lobe lung mass with numerous additional pulmonary nodules. Likely neoplastic anterior right shoulder mass, considerations include metastases versus soft tissue sarcoma. Seismograph Helper closely followed. Troponin slightly elevated, levels flat , no cardiac complains. Elevated troponin was likely secondary to renal failure , according to regulatory compliance director. Patient was noted to be in atrial fibrillation with rapid ventricular response. Patient was on amiodarone, Digoxin and Cardizem . Cardizem dose was decreased due to hypotension. Digoxin level was therapeutic. Echocardiogram revealed ejection fraction 55-60%, mild left ventricular hypertrophy, right ventricular systolic pressure of 49 consistent with moderate pulmonary hypertension. Moderate tricuspid regurgitation noted along with a significant left ventricular diastolic dysfunction Arterial duplex revealed moderate stenosis in the right lower extremity . Doppler tibial artery waveform analysis was compatible with a moderate ischemia bilaterally. Hemodialysis provided as per shop repairer with close monitoring of renal parameters , electrolytes and volumes. Electrolytes were corrected as needed Psychiatrist followed and diagnosed patient with encephalopathy , schizophrenia. Psychiatrist optimized psychiatric medication regimen. Reality orientation and supportive therapy provided. City Planning Teacher /oncologist closely followed. Venous duplex bilateral lower extremity was negative. Hemoglobin and hematocrit were closely monitored with goal to keep hemoglobin above 7. Patient received transfusion of 2 units of packed red blood cells. Epogen was continued. Stool for occult blood positive 1. 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 Per grounds restoration specialist, patient had very poor prognosis. Patient was diagnosed with lung cancer at the [facility] [place] and had extensive workup there. According to grounds restoration specialist ,the patient did not have immunophenotypic staining, but he won't benefit from immunotherapy. CT of the head revealed no acute intracranial pathology , and no evidence of metastases. Mental status improved to baseline. Supportive care provided. Bowel regimen instituted. Patient was stable for transfer back to [facility] facility . Overall prognosis poor FINAL DIAGNOSES: Hemoptysis, likely secondary to advanced lung cancer Metastatic stage IV adenocarcinoma of lung End-stage renal disease on hemodialysis COPD Recent pneumonia Chronic atrial fibrillation Atrial fibrillation with rapid ventricular response , resolved Elevated troponin, likely secondary to renal failure History of hypertension Hyperlipidemia Anemia of chronic disease Congestive heart failure with ischemic cardiomyopathy Encephalopathy Schizophrenia Multilevel peripheral arterial disease BPH Dysphagia, status post gastrostomy DISCHARGE MEDICATIONS: See Medication Reconciliation list. DISCHARGE INSTRUCTIONS: Patient was discharged to [facility] facility. Overall prognosis poor. Follow up with medical doctor at the facility. I have been assigned to dictate discharge summary for this account. I was not involved in the patient's management. Francheska Barnett NP Jan 23, 2018 15:51
== END 2018-01-22 18:25 | DRG 180 ==
LOC: EDBD 17:00 → EMR 17:40 → 2E 18:36 → EDBEDREQ 18:43 → 2E 23:15 → ICU 01-13 23:26 → 2E 01-16 18:20
PROC: 5A1D70Z Performance of Urinary Filtration, Intermittent, Less than 6 Hours Per Day (ICD-10-PCS; principal; 2018-01-13)
PROC: 30233N1 Transfusion of Nonautologous Red Blood Cells into Peripheral Vein, Percutaneous Approach (ICD-10-PCS; 2018-01-14)
DX: C78.02 Secondary malignant neoplasm of left lung (principal); N18.6 End stage renal disease; G93.40 Encephalopathy, unspecified; R04.2 Hemoptysis; C79.89 Secondary malignant neoplasm of other specified sites; I13.2 Hypertensive heart and chronic kidney disease with heart failure and with stage 5 chronic kidney disease, or end stage renal disease; I42.9 Cardiomyopathy, unspecified; N39.0 Urinary tract infection, site not specified; C80.1 Malignant (primary) neoplasm, unspecified; I50.9 Heart failure, unspecified; Z99.2 Dependence on renal dialysis; I48.2 Chronic atrial fibrillation; F09 Unspecified mental disorder due to known physiological condition; D63.1 Anemia in chronic kidney disease; I25.5 Ischemic cardiomyopathy; N40.0 Benign prostatic hyperplasia without lower urinary tract symptoms; Z93.1 Gastrostomy status; J44.9 Chronic obstructive pulmonary disease, unspecified; F20.9 Schizophrenia, unspecified; R13.10 Dysphagia, unspecified; I73.9 Peripheral vascular disease, unspecified; R62.7 Adult failure to thrive; E87.6 Hypokalemia; I95.9 Hypotension, unspecified
CPT/HCPCS: 36415; 36600; 70450; 71045; 71250; 80048; 80053; 80162; 81003; 82270; 82550; 82553; 82803; 83605; 83880; 84100; 84484; 85007; 85025; 85610; 86850; 86900; 86901; 86920; 87040; 87081; 87086; 93005; 93306; 93925; 93970; 94640; 94664; 94760; 99285; J7620